=== PATIENT | female | born 1950 | race Caucasian/White ===

== ENCOUNTER 2023-11-27 12:59 | Inpatient (IN) | payer MEDICARE, SELFPAY ==
[2023-11-27] VITALS (16 sets, daily range): BP systolic 80–108; BP diastolic 38–83; BMI 31.7
[2023-11-27 08:52] LABS: % Basophils 0.3 % (0-2); % Eosinophils 0.3 % (0-6); % Immature Granulocytes 1.5 % (0-0.5); % Lymphocytes 5.8 % (20.5-51.1); % Monocytes 9.9 % (1.7-9.3); % Neutrophils 82.2 % (42.2-75.2); Absolute Basophils 0.1 10^3/uL (0-0.2); Absolute Eosinophils 0.1 10^3/uL (0-0.7); Absolute Immature Granulocytes 0.3 10^3/uL (0-0.05); Absolute Lymphocytes 1.1 10^3/uL (1.2-3.4); Absolute Monocytes 1.8 10^3/uL (0.1-0.6); Absolute Neutrophils 15.1 10^3/uL (1.4-6.5); Hematocrit 22.9 % (37.0-47.0); Hemoglobin 7.4 g/dL (12.0-16.0); Mean Corp Hgb Conc. 32.3 g/dL (33.0-37.0); Mean Corpuscular Hgb 25.3 pg (27.0-31.0); Mean Corpuscular Volume 78.2 fL (81.0-99.0); Mean Platelet Volume 8.9 fL (7.4-10.4); Nucleated Red Blood Cells % 0 %; Platelet Count 314 10^3/uL (130-400); Red Blood Cell Count 2.93 10^6/uL (4.20-5.40); Red Cell Dist. Width 17.7 % (11.5-14.5); White Blood Cell Count 18.4 10^3/uL (4.8-10.8)
[2023-11-27 09:11] LABS: ALT (SGPT) 11 U/L (0-35); AST (SGOT) 15 U/L (14-36); Albumin 2.1 g/dl (3.5-5.0); Alkaline Phosphatase 224 U/L (38-126); Blood Urea Nitrogen 59 mg/dl (7-17); Calcium 9.1 mg/dl (8.4-10.2); Carbon Dioxide 24 mmol/L (22-30); Chloride 95 mmol/L (98-107); Glucose 163 mg/dl (70-99); Potassium 5.3 mmol/L (3.5-5.1); Sodium 122 mmol/L (135-145); Total Protein 4.7 g/dl (6.3-8.2); eGFR 14.64
--- NOTE | 2023-11-27 09:12 | ED.GENMED ---
History of Present Illness
General
Chief Complaint: Abdominal Symptoms
Source: patient and records
Time Seen by Provider: 11/27/23 08:56
Travel History
Have you had any contact with someone who has COVID-19?: No
Do you have any symptoms of coronavirus? Fever > 100 degrees, chills, cough, shortness of breath, sore throat, loss of taste or smell, muscle aches, or headache?: No
History of Present Illness
History of Present Illness:
This patient is a 73-year-old female who presents emergency department as per referral from her facility because of 'complaining of pain in right abdominal area'. Transfer paperwork reports normal vital signs. Patient notes that she has had
increasing abdominal distention over the last few weeks. She said she had a bowel movement on Tuesday and then did not have a bowel movement until yesterday x 2. She does not feel constipated. She denies [employer] stools, melena,
hematochezia, black stools. She has an indwelling Kitchen catheter and notes that her urine has looked darker to her recently. She denies abdominal pain at this time, but states that she sometimes will get mild discomfort across her mid to lower
abdomen without focality relieved with Tylenol. She denies vomiting but has intermittent nausea. She denies fever, chills, chest pain, dyspnea, headache, dizziness, or other complaints.
Past History
Past History
ED Past Medical History: HTN, Hypercholesterolemia, NIDDM, Other (Peripheral vascular disease, foot drop, carotid artery disease) and Other (Severe L4-5 spinal stenosis)
ED Past Surgical History: Orthopedic (Cervical spine fracture with surgical repair 2016 and 2021, lumbar laminectomy 2016, 2019; spinal cord stimulator implant 2020), Urological (Bladder plication 2012) and Other (Femoral-popliteal bypass
right-sided, right carotid endarterectomy 2012, cataract extraction, right AKA)
Social History
Tobacco: Smoker
Alcohol: None
Drug: None
Personal:
Living: with family
Employment: Not employed
Family History
Family History: Other (Reviewed and noncontributory)
Phy Exam
Physical Exam
Physical Exam:
GENERAL: Alert , in no apparent distress
EYE: pupils equal and reactive, conjunctive slightly pink
NECK: Supple, no significant adenopathy.
ENT: o/p clr, mm dry
CARDIAC: Regular rate and rhythm .
LUNGS: Clear breath sounds bilaterally, no acute respiratory distress, no wheezes/rales/rhonchi
ABDOMEN: Soft, distended, without focal tenderness, no r/g
NEUROLOGICAL: Alert and oriented, baseline neuropathy le/weakness le bilat
SKIN: Warm and dry, skin intact.
MUSCULOSKELETAL:1+ le edema, well perfused.
PSYCH: Normal and appropriate interaction.
Course
Orders/Labs/Results
Orders:
Orders
11/27/23 08:29
EKG [Electrocardiogram (*1)] Urgent
Reason for Study: Chest Pain
EKG- Treatment ONCE
11/27/23 08:45
Complete Blood Count/With Diff Urgent
Comprehensive Metabolic Panel Urgent
11/27/23 09:11
CR Chest - 2 Views Urgent
Comment:
Reason For Exam: transient hypoxia, new onset ?ascites
11/27/23 09:12
US Abdomen Limited Urgent
Reason For Exam: distention, poss ascites
11/27/23 09:41
Albumin Urgent
PTT Urgent
Prothrombin Time Urgent
Troponin I Urgent
11/27/23 10:35
Cardiac Monitoring- Treatment ONCE
0.9% Sodium Chloride 1000 ml [Nss] 2,900 ml IV NOW STA
Cefepime HCl [Maxipime] 2,000 mg IV NOW STA
Pulse Ox/cont/shift [RESP] Urgent
Quantity: 1
11/27/23 12:27
Lactic Acid Q4H
Comment: CANCEL 2nd LACTIC ACID IF 1st LACTIC ACID IS LESS THAN 2
Urinalysis Reflex To Culture Urgent
Date Specimen was Collected: 11/27/23
Time Specimen was Collected: 10:42
Urine Microscopic Reflex Cult Urgent
Blood Culture Q30M
CARMEN Source: Blood/Venous
Specimen Description:
Blood Culture Q30M
CARMEN Source: Blood/Venous
Specimen Description:
Influenza A+B Rapid Molecular Urgent
CARMEN Source: Nasal Swab
Specimen Description:
Urine Culture Urgent
CARMEN Source: U
Specimen Description:
Date Specimen was Collected: 11/27/23
Time Specimen was Collected: 10:42
11/27/23 12:37
Admit/Transfer Patient As Directed
Co-Sign Provider:
Level of Care: Inpatient admission
Assign to:: IMU- Intermediate Care
Physician / Group: Bernadine
Diagnosis: BOOKER
Reason for Hospitalization: BOOKER, sepsis
Expected length of stay greater than two midnights?: Yes
ELOS- Estimated Length of Stay in days: 5
I certify the patient meets the requirements for IP care: Yes
11/27/23 12:38
COVID-19 Antigen Urgent
Source: Nasal Swab
Wound/Abscess/Other Culture Urgent
CARMEN Source: Sacral
Specimen Description:
Date Specimen was Collected: 11/27/23
Time Specimen was Collected: 12:34
11/27/23 12:39
Code Status As Directed
Resuscitation Status: Do not resuscitate
Reached after discussion with pt or family/Healthcare POA: Yes
11/27/23 12:40
Kitchen Placement- Treatment ONCE
Reason for insertion: Acute Retention
DNR Bracelet Application ONCE
11/27/23 16:25
Acetaminophen [Tylenol] 650 mg PO Q6HPRN PRN
11/27/23 16:41
0.9% Sodium Chloride 1000 ml [Nss] 1,000 ml IV 150 mls/hr
11/27/23 16:41
NEPHROLOGY CONSULT Routine
Consulting Provider: Benjamin Gilbert V.
Was physician already notified: Yes
SURGICAL CONSULT Routine
Consulting Provider: Nestor Guerra
Was physician already notified: Yes
Activity As Directed
Activity Level: Bedrest
I&O [Intake/ Output] As Directed
Frequency: q12h
DX Deep Vein Thrombosis Video Routine
11/27/23 17:32
Lactic Acid Q4H
Comment: CANCEL 2nd LACTIC ACID IF 1st LACTIC ACID IS LESS THAN 2
11/28/23 08:00
Cefepime HCl [Maxipime] 1,000 mg IV Q24H
Abnormal Lab Results
11/27/23 11/27/23 11/27/23
08:45 09:41 12:27
WBC 18.4 H 10^3/uL
(4.8-10.8)
RBC 2.93 L 10^6/uL
(4.20-5.40)
Hgb 7.4 L g/dL
(12.0-16.0)
Hct 22.9 L %
(37.0-47.0)
MCV 78.2 L fL
(81.0-99.0)
MCH 25.3 L pg
(27.0-31.0)
MCHC 32.3 L g/dL
(33.0-37.0)
RDW 17.7 H %
(11.5-14.5)
Abs Immat Gran (auto) 0.3 H 10^3/uL
(0-0.05)
Absolute Neuts (auto) 15.1 H 10^3/uL
(1.4-6.5)
Absolute Lymphs (auto) 1.1 L 10^3/uL
(1.2-3.4)
Absolute Monos (auto) 1.8 H 10^3/uL
(0.1-0.6)
Immature Gran % 1.5 H %
(0-0.5)
Neutrophils % 82.2 H %
(42.2-75.2)
Lymphocytes % 5.8 L %
(20.5-51.1)
Monocytes % 9.9 H %
(1.7-9.3)
PT 16.4 H Sec
(11.4-14.6)
Sodium 122 L mmol/L
(135-145)
Potassium 5.3 H mmol/L
(3.5-5.1)
Chloride 95 L mmol/L
(98-107)
BUN 59 H mg/dl
(7-17)
Creatinine 3.2 H mg/dL
(0.6-1.0)
Glucose 163 H mg/dl
(70-99)
Lactic Acid 2.2 H mmol/L
(0.7-2.0)
Alkaline Phosphatase 224 H U/L
(38-126)
Total Protein 4.7 L g/dl
(6.3-8.2)
Albumin 2.1 L g/dl 2.2 L g/dl
(3.5-5.0) (3.5-5.0)
Urine Ketones Trace A
(Negative)
Urine Nitrite (Reflex) Positive A
(Negative)
Leukocyte Esterase Rfl 2+ A
(Negative)
Urine Bacteria (Reflex) Many A
(Negative)
Urine Albumin (Reflex) 2+ A
(Neg - Trace)
11/27/23 08:45
11/27/23 08:45
Vital Signs
Initial and Last Documented VS:
Initial Vital Signs
Temp Pulse Resp BP Pulse Ox
98.7 F 72 15 97/44 94
11/27/23 08:23 11/27/23 08:23 11/27/23 08:23 11/27/23 08:23 11/27/23 08:23
Last Documented Vital Signs
Temp Pulse Resp BP Pulse Ox
99.3 F 84 24 111/53 93
11/28/23 15:12 11/28/23 18:00 11/28/23 18:00 11/28/23 18:00 11/28/23 18:00
*Critical Care Note
Total Time (30-74mins, 75-104mins- exclusive of procedures): Not Applicable
Update Note
Update Note:
Patient presents to the Emergency Department with ___abdominal distention/report of pain
Number and Complexity of Problems Addressed at the Encounter
� Chronic conditions affecting care:indwelling Kitchen
� Acute Exacerbation and/or Progression of Chronic Illness:
� Differential Diagnosis includes: But not limited to ascites, cirrhosis, carcinoma, etc.
Amount and/or Complexity of Data to be Reviewed and Analyzed
� I performed an independent evaluation of and my interpretation is:
EKG: Read by me, normal sinus rhythm, left axis deviation, no acute ischemia noted
CT:
Xrays:
Laboratory Studies: Anemia at 7.4 noted, this is a decrease from her most recent levels
Other:
� Review of other/old records reveals: Patient was here September 2023 and at that time received a right-sided AKA due to gangrenous lower extremity due to advanced peripheral arterial disease, does have a history of iron
deficiency anemia
� Clinical information was obtained by an independent historian:
� Prescriptions/Medications Considered but not given:
� Further testing considered but not performed:
Risk of Complications and/or Morbidity or Mortality of Patient Management
� Social determinants of health affecting care:
� Discussion with other providers (PCP, Hospitalists, Consultants, etc):
� Escalation of care including admission/observation vs risk of discharge considered: 10:56 AM sacral wound examined by me she has a large circular shaped decubitus that is moist but without active drainage in the sacral area.
Stool noted to be dark but heme-negative on exam. Strongly suspect urosepsis, antibiotics and fluids ordered, will monitor blood pressure very closely.
bp responding to ivf, map 64. awake and alert on reassessment, at bedside. Case d/w Dr Ariza hospitalist for admission. Pt seen by Dr Gilbert at my request, recommends NS at this time (not necessarily 3%).
US noted with bladder distention, will change Kitchen.
ED Attending Note
-
Portions of this chart may have been created with voice recognition software.� Occasional wrong word or��sound alike� substitutions may have occurred due to the inherent limitations of voice recognition software.
Discharge Plan
Departure
Patient Disposition: Admit
Date of Disposition: 11/27/23
Time of Disposition: 11:22
Presentation/result/management discussed w/ accepting MD/DO: Hospitalist
Discharge Problem:
urosepsis
Interventions
Interventions:
*Risk Screen - Suicide Last Done: 11/27/23 10:35
*General Assessment Last Done: 11/27/23 10:35
*Neglect/Abuse Screening Last Done: 11/27/23 10:35
ED- Fall Risk Assessment Last Done: 11/27/23 10:35
*ED COVID-19 Vaccine History Last Done: 11/27/23 10:35
*Nursing Disposition Last Done: 11/27/23 16:56
YZ-[id number]-[id number] Assessment Last Done: 11/27/23 12:04
Discharge Date and Time
Discharge Date/Time: 11/27/23 16:30
[2023-11-27 10:04] LABS: APTT 32.7 Sec (23.4-35.0); INR 1.34; PT 16.4 Sec (11.4-14.6)
[2023-11-27 10:06] LABS: Albumin 2.2 g/dl (3.5-5.0)
[2023-11-27 10:16] LABS: Troponin I < 0.012 ng/ml
--- NOTE | 2023-11-27 10:44 | W.CON.NEPH ---
Consultation
-
Date/Time Consultation Requested: 11/27/2023 10:30 AM
Date/Time Consultation Performed: 11/27/2023 10:30 AM
Requesting Provider: Fidelina
Performing Provider: Vladimir
Reason for Consultation: BOOKER/Hyponatremia
Medical History
-
Chief Complaint: Acute kidney injury/hyponatremia
History of Present Illness:
The patient is a 73-year-old female with a past medical history of hypertension maintained on losartan therapy. She has a history of diabetes with multiple microvascular complications including neuropathy and is maintained on insulin therapy. She
has had an indwelling Kitchen since her last admission many months prior for bladder retention. She was sent to the ER as she had been describing right abdominal pain over the past several weeks. She notes that she has had decreased urine output
from her Kitchen. She denied any nausea vomiting melena or hematochezia. She does note chronic discomfort also on her bottom from a chronic sacral wound. The patient had a prior history of cervical spine fracture requiring surgical repair in both
2016 and 2019. She has an indwelling spinal cord stimulator and had undergone previous lumbar laminectomy as well. She has a history of peripheral vascular disease and underwent prior femoral-popliteal bypass of the right side and right carotid
endarterectomy in 2012. She is status post right AKA as well in the setting of her peripheral vascular disease. On presentation to the hospital she was notably hypotensive with systolic blood pressures in the 80s and has a noted leukocytosis of
18,000 and associated with acute renal failure and hyponatremia. Of note the patient is being treated with amoxicillin and Levaquin prior to this admission for possible underlying UTI. her sodium level was 122 with a corresponding creatinine level
of 3.2. (previous creatinine baseline of 0.7 in August 2023) Nephrology was urgently consulted for acute kidney injury and hyponatremia.
Past Medical History
Diabetes
Hypertension
Chronic Kitchen catheter
Right AKA
History of femoropopliteal bypass of right side and right carotid endarterectomy in 2012
Obesity
Sacral wound
Spinal cord stimulator
Previous history of cervical spine fracture requiring surgical repair in 2016 and 2019 with indwelling spinal hardware
Coronary artery disease
Anemia
Social History
Tobacco: Former Smoker
Alcohol: Occasional
Living: Correction
Family History
No chronic kidney disease
Allergies / Home Medications
Allergy/AdvReac Type Severity Reaction Status Date / Time
No Known Allergies Allergy Verified 08/01/23 13:24
Medication Instructions Recorded Confirmed Type
aspirin 81 mg tablet,delayed 81 mg PO DAILY Blood Clot 10/06/21 08/01/23 History
release (Kartik Low Dose Aspirin) Prevention/Tx
clopidogrel 75 mg tablet 75 mg PO DAILY Blood clot 10/06/21 08/01/23 History
prevention/tx
gabapentin 300 mg capsule 300 mg PO TID Neurological 10/22/22 08/01/23 History
Condition
acetaminophen 325 mg tablet 650 mg PO Q4HPRN PRN mild 07/14/23 08/01/23 History
(Tylenol) pain/fever
aluminum-mag hydroxide-simethicone 15 ml PO Q4HPRN PRN indigestion 07/14/23 08/01/23 History
200 mg-200 mg-20 mg/5 mL oral susp
(Mag-Al Plus)
atorvastatin 10 mg tablet 10 mg PO HS High Cholesterol 07/14/23 08/01/23 History
bisacodyl 10 mg rectal suppository 10 mg KS QPM Constipation 07/14/23 08/01/23 History
docusate sodium 100 mg capsule 100 mg PO TID Constipation 07/14/23 08/01/23 History
(Colace)
pantoprazole 40 mg tablet,delayed 40 mg PO DAILY Gastrointestinal 07/14/23 08/01/23 History
release (Protonix) Issue
sennosides 8.6 mg tablet (senna) 17.2 mg PO DAILY@1200 Constipation 07/14/23 08/01/23 History
Insulin Glargine In Device 8 units SC HS Diabetes 08/01/23 08/01/23 History
Lactobac no.2-Bifidobac no.1-S. 1 cap PO DAILY Supplement 08/01/23 08/01/23 History
thermo 112.5 billion cell capsule
(Visbiome)
alprazolam 0.25 mg tablet 0.25 mg PO Q8HPRN PRN anxiety 08/01/23 08/01/23 History
ascorbic acid (vitamin C) 500 mg 500 mg PO DAILY Supplement 08/01/23 08/01/23 History
tablet (Vitamin C)
bisacodyl 5 mg tablet,delayed 10 mg PO DAILYPRN PRN constipation 08/01/23 08/01/23 History
release (Dulcolax (bisacodyl))
ferrous sulfate 325 mg (65 mg 325 mg PO DAILY Supplement 08/01/23 08/01/23 History
iron) tablet
losartan 25 mg tablet 12.5 mg PO DAILY Blood Pressure 08/01/23 08/01/23 History
therapeutic multivitamin 1 tab PO DAILY Supplement 08/01/23 08/01/23 History
collagenase clostridium histo. 250 1 applic topical DAILY #30 grams 08/16/23 Rx
unit/gram topical ointment (Santyl)
miconazole nitrate 2 % topical 1 applic topical BID #85 grams 08/16/23 Rx
powder (Miconazorb AF)
Review of Systems
-
History Source: Patient
All other systems: Negative unless noted
Constitutional: Other (Weakness)
EENT: No Symptoms
Respiratory: No Symptoms
Cardiac: No Symptoms
Abdomen/GI: Abdominal Pain (Right lower quadrant with abdominal distention noted)
: Other (Chronic Kitchen with decreased urine output no dysuria)
Musculoskeletal: Edema and Other (Right AKA)
Skin: No Symptoms
Neurological: Numbness (Of lower extremity)
Endocrine: No Symptoms
Hematologic/Lymphatic: No Symptoms
Physical Exam
Vital Signs
Vital Signs
Temp Pulse Resp BP Pulse Ox
98.7 F 72 17 80/49 95
11/27/23 08:23 11/27/23 09:17 11/27/23 09:17 11/27/23 09:17 11/27/23 09:17
Lab Results
11/27/23 08:45
11/27/23 08:45
WBC 18.4 10^3/uL (4.8-10.8) H 11/27/23 08:45
RBC 2.93 10^6/uL (4.20-5.40) L 11/27/23 08:45
Hgb 7.4 g/dL (12.0-16.0) L 11/27/23 08:45
Hct 22.9 % (37.0-47.0) L 11/27/23 08:45
Plt Count 314 10^3/uL (130-400) 11/27/23 08:45
Sodium 122 mmol/L (135-145) L 11/27/23 08:45
Potassium 5.3 mmol/L (3.5-5.1) H 11/27/23 08:45
Chloride 95 mmol/L (98-107) L 11/27/23 08:45
Carbon Dioxide 24 mmol/L (22-30) 11/27/23 08:45
BUN 59 mg/dl (7-17) H 11/27/23 08:45
Creatinine 3.2 mg/dL (0.6-1.0) H 11/27/23 08:45
eGFR 14.64 11/27/23 08:45
Glucose 163 mg/dl (70-99) H 11/27/23 08:45
Calcium 9.1 mg/dl (8.4-10.2) 11/27/23 08:45
Albumin 2.2 g/dl (3.5-5.0) L 11/27/23 09:41
Physical Exam
General: AOx3 and Other (Obese)
HEENT: PERRL, EOMI, Anicteric, Conjunctivae Clear (Pale), Ear/Nose Intact, Hearing Normal, Dentition Intact, Neck Supple, Trachea Midline and No JVD
Respiratory: Clear
Cardiac: S1/S2 and Regular Rate/Rhythm
Breast: Deferred by me
Abdomen: Soft, Nontender, Normal Bowel Sounds, No Hepatosplenomegaly and Other (Distended)
Rectal: Deferred by Provider
Genito-urinary: No Costovertebral Tender
Musculoskeletal: Edema (Left pretibial) and Other (Right AKA's to)
Skin: No Rash, No Clubbing, No Cyanosis, Normal Turgor, No Bruising and Other (Sacral wound)
Neuro: CN II-XII (Intact), Strength (Moves all 4 extremities against resistance) and Other (Decreased neurosensory along lower extremity)
Hematologic/Lymphatic: No Cervical Lymphadenopathy and No Submandibular Lymphadenopathy
Psych: Mood/afflect pleasant, Insight/judgement good and Appropriate
Assessment/Plan
-
Impression:
Abdominal distention and pain presentation
Acute kidney injury
Hyponatremia
Hypotension and likely evolving sepsis/leukocytosis
Chronic Kitchen
Nonambulatory due to previous cervical surgery and right AKA
PAD
History of hypertension now hypotensive
Diabetes with multiple microvascular complication
History of cervical myelopathy
History of right carotid endarterectomy
History of coronary artery disease
Anemia
Sacral wound
Plan:
BOOKER:
-Likely due to prerenal stimulus with evolving sepsis
-Support blood pressure with isotonic saline and possible pressors if required to keep MAP greater than 65
-Panculture/broad-spectrum antibiotic
-Chest x-ray reviewed without noted pathology or CHF
-With hold losartan in setting of hypotension and acute kidney injury
-Will review abdominal ultrasound to assess for possible obstructive uropathy and to assess abdominal distention
-Check fractional excretion of sodium and urinalysis with culture
-Recheck BMP later this afternoon around 3pm
Hyponatremia:
-Fluid restrict 1200 cc/day until sodium rises
-Okay to use isotonic saline as patient is actively hypotensive
-Obtain urine osmolarity
Anemia:
-Assess for acute blood loss, heme check stools, check iron stores
-Transfuse if hemoglobin drops below 7 and/or becomes more hemodynamically unstable
Data Reviewed
-
Radiology: Image Personally Visualized and interpreted (Reviewed chest x-ray without pneumonic or congestive heart failure features)
Ultrasound: Report Reviewed by me (Abdominal ultrasound to be reviewed)
Medical Tests (Nuc Med, Echo etc): Other (EKG report reviewed)
Labs: Labs Reviewed by me (BMP and CBC reviewed)
Old Records: Reviewed (Reviewed old records including BMP from August 2023 as well as discharge summary from hospitalization)
[2023-11-27] MEDS: NSS 2900 ML IV (10:48)
[2023-11-27] MEDS: MAXIPIME 2000 MG IV (11:06)
[2023-11-27 12:40] LABS: Urine Albumin 2+ (Neg - Trace); Urine Bilirubin Negative (Negative); Urine Character Clear (Clear); Urine Color Yellow; Urine Glucose Negative (Negative); Urine Ketone Trace (Negative); Urine Leukocyte 2+ (Negative); Urine Nitrite Positive (Negative); Urine Occult Blood Negative (Negative); Urine Specific Gravity 1.015 (<1.030); Urine Urobilinogen Negative (Neg - 1+)
--- NOTE | 2023-11-27 12:52 | EDRN ---
Wound Location and type/assessment: Patient states 2 weeks ago this sacral wound was the size of a pencil eraser
--- NOTE | 2023-11-27 12:52 | HPS.HSE ---
Family Physician
-
Family Physician: Fabrice Padgett
Chief Complaint
-
Abdominal discomfort
History of Present Illness
73-year-old female with transferred from [facility] half-way for abdominal discomfort. Also complaining of anorexia and chills off and on. Multiple medical problems. Last hospitalized in August. Has been in a half-way since. Bed
and wheelchair-bound.
Medical History
Past Medical History
Past Medical History: Reports Other
Additional Past Medical History:
PAD
Chronic urinary retention
Chronic anemia
CAD
Essential hypertension
DM2
Obesity
Spinal stenosis
Past Surgical History: Reports Other
Additional Past Surgical History:
Right above-knee amputation
Right femoropopliteal bypass
Right carotid enterectomy
Cataract extraction
Lumbar laminectomy
Spine stimulator implant
Bladder surgery
Social History
Tobacco: Smoker
Alcohol: None
Drug: None
Personal:
Living: Alf
Family History
Family History: Not pertinent
Allergies / Home Medications
Allergies reflects when Allergies were last updated in [facility].
Home Medications with original date entered in [facility]
Allergy/Medication List:
Allergies
Allergy/AdvReac Type Severity Reaction Status Date / Time
No Known Allergies Allergy Verified 08/01/23 13:24
Home Medications
aspirin 81 mg tablet,delayed release (Kartik Low Dose Aspirin) 81 mg PO DAILY Blood Clot Prevention/Tx 10/06/21
clopidogrel 75 mg tablet 75 mg PO DAILY Blood clot prevention/tx 10/06/21
gabapentin 300 mg capsule 300 mg PO TID Neurological Condition 10/22/22
acetaminophen 325 mg tablet (Tylenol) 650 mg PO Q4HPRN PRN mild pain/fever 07/14/23
aluminum-mag hydroxide-simethicone 200 mg-200 mg-20 mg/5 mL oral susp (Mag-Al Plus) 15 ml PO Q4HPRN PRN indigestion 07/14/23
atorvastatin 10 mg tablet 10 mg PO HS High Cholesterol 07/14/23
bisacodyl 10 mg rectal suppository 10 mg WI QPM Constipation 07/14/23
docusate sodium 100 mg capsule (Colace) 100 mg PO TID Constipation 07/14/23
pantoprazole 40 mg tablet,delayed release (Protonix) 40 mg PO DAILY Gastrointestinal Issue 07/14/23
sennosides 8.6 mg tablet (senna) 17.2 mg PO DAILY@1200 Constipation 07/14/23
Insulin Glargine In Device 8 units SC HS Diabetes 08/01/23
Lactobac no.2-Bifidobac no.1-S. thermo 112.5 billion cell capsule (Visbiome) 1 cap PO DAILY Supplement 08/01/23
alprazolam 0.25 mg tablet 0.25 mg PO Q8HPRN PRN anxiety 08/01/23
ascorbic acid (vitamin C) 500 mg tablet (Vitamin C) 500 mg PO DAILY Supplement 08/01/23
bisacodyl 5 mg tablet,delayed release (Dulcolax (bisacodyl)) 10 mg PO DAILYPRN PRN constipation 08/01/23
ferrous sulfate 325 mg (65 mg iron) tablet 325 mg PO DAILY Supplement 08/01/23
losartan 25 mg tablet 12.5 mg PO DAILY Blood Pressure 08/01/23
therapeutic multivitamin 1 tab PO DAILY Supplement 08/01/23
collagenase clostridium histo. 250 unit/gram topical ointment (Santyl) 1 applic topical DAILY #30 grams 08/16/23
miconazole nitrate 2 % topical powder (Miconazorb AF) 1 applic topical BID #85 grams 08/16/23
Review of Systems
-
History Source: Patient
A 12 point ROS was completed and negative except as noted: Yes
Physical Exam
Vital Signs
Vital Signs
Temp Pulse Resp BP Pulse Ox
98.7 F 72 17 80/49 95
11/27/23 08:23 11/27/23 09:17 11/27/23 09:17 11/27/23 09:17 11/27/23 09:17
Physical Exam
General: Well Developed, Well Nourished, No Apparent Distress and Comfortable
HEENT: NormoCephalic, Anicteric and Moist mucous membranes
Respiratory: Clear
Cardiac: S1/S2 and Regular Rhythm
GI: Soft, Non Tender and Non Distended
Genito-urinary: Kitchen
Musculoskeletal: No Clubbing, No Cyanosis, No Edema and Other (Right above-knee amputation)
Skin: Warm and Dry
Neuro: AO x 3
Hematologic/Lymphatic: No Lymphadenopathy
Psych: Calm
Laboratory Results
-
11/27/23 08:45
11/27/23 08:45
Laboratory Results
PT 16.4 Sec (11.4-14.6) H 11/27/23 09:41
INR 1.34 11/27/23 09:41
APTT 32.7 Sec (23.4-35.0) 11/27/23 09:41
Total Bilirubin 1.0 mg/dl (0.2-1.3) 11/27/23 08:45
AST 15 U/L (14-36) 11/27/23 08:45
ALT 11 U/L (0-35) 11/27/23 08:45
Alkaline Phosphatase 224 U/L (38-126) H 11/27/23 08:45
Troponin I < 0.012 ng/ml 11/27/23 09:41
Impression/Plan
-
Septic shock - differential diagnosis includes catheter associated urinary tract infection versus sacral decubital wound infection versus other. Admit to IMU. Blood pressure improving with IV fluids.
Continue broad-spectrum antibiotics. Await cultures.
Lactic acidosis due to sepsis.
BOOKER -likely due to ATN from sepsis, shock, etc. Nephrology consulted. Plan to exchange Kitchen catheter. Bladder is distended on ultrasound despite Kitchen catheter.
Hyponatremia -sodium 122. Likely hypovolemic. Check urine studies. Nephrology consulted.
Hyperkalemia -suspect due to BOOKER.
Acute on chronic anemia -hemoglobin 7.4 today. Baseline unknown, last hemoglobin was 9.3 in August. Unclear if blood loss anemia related to GI bleed. Nursing reports black stools but she is also on iron supplementation. May need transfusion if
hemoglobin drops further.
Large sacral decubital wound -consult surgery for possible debridement.
PAD -right above-knee amputation. Does not have a prosthesis. Is wheelchair and bedbound.
DM2 without hyperglycemia -use low resistance insulin scale for now.
Essential hypertension -hold antihypertensives for shock.
CAD -stable.
Chronic urinary retention -chronic Kitchen catheter as above.
Chronic cervical myelopathy
Hyperlipidemia
Anxiety disorder
Morbid obesity due to excess calories
DNR
[2023-11-27 12:56] LABS: Lactic Acid 2.2 mmol/L (0.7-2.0)
[2023-11-27 13:00] LABS: Urine Amorphous Seen; Urine Squamous Cell 0-2 /LPF (Few); Urine Triple Phosphate Crystal Seen
[2023-11-27 13:03] LABS: Urine Bacteria Many (Negative); Urine Red Blood Cell 0-2 /HPF (0-2); Urine White Cell 0-2 /HPF (0-5)
[2023-11-27 13:04] LABS: COVID-19 Antigen Negative (Negative)
--- NOTE | 2023-11-27 13:40 | CON.GS ---
Consultation
-
Date/Time Consultation Requested: 11/27/2023, 12:25
Date/Time Consultation Performed: 11/27/2023, 13:40
Requesting Provider: Laith Colindres DO
Performing Provider: Julito Hinson MD
Reason for Consultation: sacral decubital wound infection
Medical History
-
Chief Complaint: abdominal discomfort
History of Present Illness:
73-year-old female presents emergency department from her assisted living facility complaining of abdominal pain, chills, and anorexia. The patient has an extensive past medical history including a chronic Marie catheter due to urinary retention,
diabetes type 2, hypertension, and a history of a right femoral-popliteal bypass, right carotid endarterectomy. Her last bowel movement was yesterday. She is currently on ASA and Plavix.
In the ER she is in septic shock. She is hypotensive and her WBC is 18.4. She has a positive urinalysis for UTI. Abdominal ultrasound shows no ascites or other acute finding. The urinary bladder is distended with a catheter in place. Upon exam
it was found that the patient has a sacral decubitus ulcer. We have been consulted for further surgical opinion.
Past Medical History
Past Medical History: CAD, HTN and Other (PAD, chronic urinary retetion, chronic anemia, DM II, obesity, spinal stenosis )
Past Surgical History: Urological (chronic indwelling marie) and Other (above the knee amputation on the right, right femoral popliteal bypass, cataract extraction, right carotid endarterectomy, spinal stimulator implant, lumbar laminectomy, bladder
surgery)
Social History
Tobacco: Smoker
Alcohol: None
Drug: None
Living: Longterm
Family History
Family History: Reviewed & Not Pertinent
Allergies / Home Medications
Allergy/AdvReac Type Severity Reaction Status Date / Time
No Known Allergies Allergy Verified 08/01/23 13:24
Medication Instructions Recorded Confirmed Type
aspirin 81 mg tablet,delayed 81 mg PO DAILY Blood Clot 10/06/21 08/01/23 History
release (Kartik Low Dose Aspirin) Prevention/Tx
clopidogrel 75 mg tablet 75 mg PO DAILY Blood clot 10/06/21 08/01/23 History
prevention/tx
gabapentin 300 mg capsule 300 mg PO TID Neurological 10/22/22 08/01/23 History
Condition
acetaminophen 325 mg tablet 650 mg PO Q4HPRN PRN mild 07/14/23 08/01/23 History
(Tylenol) pain/fever
aluminum-mag hydroxide-simethicone 15 ml PO Q4HPRN PRN indigestion 07/14/23 08/01/23 History
200 mg-200 mg-20 mg/5 mL oral susp
(Mag-Al Plus)
atorvastatin 10 mg tablet 10 mg PO HS High Cholesterol 07/14/23 08/01/23 History
bisacodyl 10 mg rectal suppository 10 mg MT QPM Constipation 07/14/23 08/01/23 History
docusate sodium 100 mg capsule 100 mg PO TID Constipation 07/14/23 08/01/23 History
(Colace)
pantoprazole 40 mg tablet,delayed 40 mg PO DAILY Gastrointestinal 07/14/23 08/01/23 History
release (Protonix) Issue
sennosides 8.6 mg tablet (senna) 17.2 mg PO DAILY@1200 Constipation 07/14/23 08/01/23 History
Insulin Glargine In Device 8 units SC HS Diabetes 08/01/23 08/01/23 History
Lactobac no.2-Bifidobac no.1-S. 1 cap PO DAILY Supplement 08/01/23 08/01/23 History
thermo 112.5 billion cell capsule
(Visbiome)
alprazolam 0.25 mg tablet 0.25 mg PO Q8HPRN PRN anxiety 08/01/23 08/01/23 History
ascorbic acid (vitamin C) 500 mg 500 mg PO DAILY Supplement 08/01/23 08/01/23 History
tablet (Vitamin C)
bisacodyl 5 mg tablet,delayed 10 mg PO DAILYPRN PRN constipation 08/01/23 08/01/23 History
release (Dulcolax (bisacodyl))
ferrous sulfate 325 mg (65 mg 325 mg PO DAILY Supplement 08/01/23 08/01/23 History
iron) tablet
losartan 25 mg tablet 12.5 mg PO DAILY Blood Pressure 08/01/23 08/01/23 History
therapeutic multivitamin 1 tab PO DAILY Supplement 08/01/23 08/01/23 History
collagenase clostridium histo. 250 1 applic topical DAILY #30 grams 08/16/23 Rx
unit/gram topical ointment (Santyl)
miconazole nitrate 2 % topical 1 applic topical BID #85 grams 08/16/23 Rx
powder (Miconazorb AF)
Review of Systems
-
History Source: Patient and Physician
Constitutional: Chills
Abdomen/GI: Abdominal Pain and Anorexia
A 10 point review of systems was completed, and was negative except as per HPI.
Physical Exam
Vital Signs
Temp Pulse Resp BP Pulse Ox
98.7 F 91 22 92/57 93
11/27/23 08:23 11/27/23 12:58 11/27/23 12:58 11/27/23 13:28 11/27/23 12:58
11/26/23 11/27/23 11/28/23
06:59 06:59 06:59
Actual Weight 95.9 kg
Lab Results
11/27/23 08:45
11/27/23 08:45
WBC 18.4 10^3/uL (4.8-10.8) H 11/27/23 08:45
Hgb 7.4 g/dL (12.0-16.0) L 11/27/23 08:45
Hct 22.9 % (37.0-47.0) L 11/27/23 08:45
Plt Count 314 10^3/uL (130-400) 03/24/24 08:45
Abs Immat Gran (auto) 0.3 10^3/uL (0-0.05) H 11/27/23 08:45
Neutrophils % 82.2 % (42.2-75.2) H 11/27/23 08:45
Physical Exam
General: Well Developed, Well Nourished and No Apparent Distress
HEENT: Normocephalic
GI: Soft, Non Tender and Non Distended
Skin: Other (sacral decubitus pressure ulcer - black/unstageable)
Neuro: AO x 3
Data Reviewed
-
Ultrasound: Report Reviewed by me
Labs: Labs Reviewed by me, Discussed with Physician and Discussed with Patient
Old Records: Reviewed
Assessment / Plan
-
Assessment: 73-year-old female presents from her assisted living facility due to abdominal discomfort, anorexia, and chills, found to be in septic shock with BOOKER, with a urinary tract infection and sacral decubital wound infection
Plan:
Recommend medically optimizing at this time. Continue resuscitation and antibiotics. Will consider potential surgery in the future once she improves.
[2023-11-27] MEDS: TYLENOL 650 MG PO (16:30)
--- NOTE | 2023-11-27 16:45 | PTCARENOTE ---
patient received from ED on a stretcher. awake, alert oriented x 2-3. Forgetful. sinus rhythm on telemetry with rates in 80's. pox 92-94% on room air. b/p 94/38. oriented to the room, bed alarm activated. bed in lowest position. repeat lactic and
repeat BMP drawn. see fully documented assessment. call rouse in reach. continuing to monitor.
[2023-11-27 17:23] LABS: Glucose - Point of Care 133 mg/dl (70-99)
[2023-11-27] MEDS: NSS 1000 IV (17:38)
[2023-11-27] MEDS: NOVOLOG FLEXPEN-LOW RESISTANCE SC (17:38)
[2023-11-27] MEDS: VANCOCIN 300 ML IV (17:39)
[2023-11-27] MEDS: VANCOCIN 300 MG IV (17:39)
[2023-11-27 17:52] LABS: Lactic Acid 1.5 mmol/L (0.7-2.0)
[2023-11-27 17:53] LABS: Blood Urea Nitrogen 57 mg/dl (7-17); Calcium 9.1 mg/dl (8.4-10.2); Carbon Dioxide 23 mmol/L (22-30); Chloride 99 mmol/L (98-107); Estimated Creatinine Clearance 21 ml/min; Glucose 128 mg/dl (70-99); Potassium 5.1 mmol/L (3.5-5.1); Sodium 124 mmol/L (135-145); eGFR 17.95
--- NOTE | 2023-11-27 20:05 | PHA.VAN.IN ---
Assessment
- Assessment
Renal Function: Appears elevated from baseline (baseline 0.6-0.7; current 3.2-->2.7)
Maximum Temperature: 101
Concomitant Antimicrobials: cefepime
Plan
- Plan
Initial / Loading Dose: vanc 1500 mg 11/26 17:39
Maintenance Regimen: dose by level
Monitoring: random 11/27 am
Pharmacokinetics Vancomycin I
- -
Patient Age: 73
Patient Sex: Female
Vancomycin Day #: 1
Indication: Bacteremia
Requesting Provider: Dr Colindres
Pertinent Antimicrobial Allergies:
no known allergies
Height / Weight:
Height 5 ft 7 in
Actual Weight 91.6 kg
- Vital Signs / Lab Results
Temp Pulse Resp BP Pulse Ox
98.9 F 85 17 84/71 93
11/27/23 16:40 11/27/23 19:30 11/27/23 19:30 11/27/23 19:25 11/27/23 19:30
Lab Results - Hematology
11/27/23
08:45
WBC 18.4 H
Lab Results - Chemistry
11/27/23 11/27/23 11/27/23
08:45 09:41 17:32
BUN 59 H 57 H
Creatinine 3.2 H 2.7 H
Estimated Creat Clear 21
Albumin 2.1 L 2.2 L
11/27/23 11/27/23
12:27 17:32
Lactic Acid 2.2 H 1.5
Lab Results - Urine
11/27/23
12:27
Urine Nitrite (Reflex) Positive A
Leukocyte Esterase Rfl 2+ A
Urine WBC (Reflex) 0-2
Ur Squamous Epith Cells 0-2
Urine Bacteria (Reflex) Many A
Microbiology Results
11/27/23 12:38 Gram Stain - Preliminary
Sacral
11/27/23 12:27 Influenza Types A & B (SHERIN) - Final
Nasal Swab Negative for Influenza A & B, NAAT
Negative results must be combined with clinical observations
and patient history.
Nucleic Acid Amplification test (NAAT)performed on the
[employer] platform.
--- NOTE | 2023-11-27 21:45 | PTCARENOTE ---
Assumed care of Pt at shift change. AAO x 2; NSR on monitor; ~ 90% on RA - placed on 2L O2 that brought her up to 95%. Chronic marie draining orange/yellow urine with large amounts of sediment. Pt drowsy and lethargic at times but arousable; Soft
BP's ~ 80-90's SBP; Wilda [employer]PER[employer] notified and ordered to increase NSS to 150ml/hr. Will continue to monitor and assess.
[2023-11-27 21:55] LABS: Glucose - Point of Care 144 mg/dl (70-99)
[2023-11-28] VITALS (56 sets, daily range): BP systolic 72–137; BP diastolic 33–95; BMI 31.7
--- NOTE | 2023-11-28 01:27 | PTCARENOTE ---
Pt remains hypotensive, no improvement noted with fluids. Last BP = 81/36; HR = 70; Wilda CREDIT INTERVIEWER notified - Order rec'd to start Levophed. Continues with NSS @ 150mg/hr. Reviewed Levo with Pt. Will continue to monitor and assess
[2023-11-28] MEDS: LEVOPHED 250 IV (01:32)
[2023-11-28] MEDS: NSS 1000 IV (01:33)
[2023-11-28 03:56] LABS: % Basophils 0.3 % (0-2); % Eosinophils 0.7 % (0-6); % Lymphocytes 7.8 % (20.5-51.1); % Monocytes 7.7 % (1.7-9.3); % Neutrophils 81.5 % (42.2-75.2); Absolute Basophils 0.1 10^3/uL (0-0.2); Absolute Eosinophils 0.1 10^3/uL (0-0.7); Absolute Immature Granulocytes 0.4 10^3/uL (0-0.05); Absolute Lymphocytes 1.5 10^3/uL (1.2-3.4); Absolute Monocytes 1.5 10^3/uL (0.1-0.6); Absolute Neutrophils 15.6 10^3/uL (1.4-6.5); Hematocrit 22.9 % (37.0-47.0); Hemoglobin 7.3 g/dL (12.0-16.0); Mean Corp Hgb Conc. 31.9 g/dL (33.0-37.0); Mean Corpuscular Hgb 25.1 pg (27.0-31.0); Mean Corpuscular Volume 78.7 fL (81.0-99.0); Mean Platelet Volume 9.1 fL (7.4-10.4); Nucleated Red Blood Cells % 0 %; Platelet Count 374 10^3/uL (130-400); Red Blood Cell Count 2.91 10^6/uL (4.20-5.40); Red Cell Dist. Width 18.1 % (11.5-14.5); White Blood Cell Count 19.1 10^3/uL (4.8-10.8)
[2023-11-28 04:11] LABS: ALT (SGPT) < 10 U/L (0-35); AST (SGOT) 15 U/L (14-36); Albumin 2.1 g/dl (3.5-5.0); Alkaline Phosphatase 211 U/L (38-126); Blood Urea Nitrogen 51 mg/dl (7-17); Calcium 9.2 mg/dl (8.4-10.2); Carbon Dioxide 23 mmol/L (22-30); Chloride 103 mmol/L (98-107); Estimated Creatinine Clearance 26 ml/min; Glucose 101 mg/dl (70-99); Potassium 4.6 mmol/L (3.5-5.1); Sodium 130 mmol/L (135-145); Total Bilirubin 0.8 mg/dl (0.2-1.3); Total Protein 4.7 g/dl (6.3-8.2); eGFR 22.95
[2023-11-28 04:21] LABS: Vancomycin Random 13.5 ug/ml
[2023-11-28] MEDS: NOVOLOG FLEXPEN-LOW RESISTANCE SC ×3 (08:16→16:33)
[2023-11-28] MEDS: STERILE WATER FOR INJECTION 10 ML IV (08:17)
[2023-11-28] MEDS: MAXIPIME 1000 MG IV (08:17)
[2023-11-28 08:27] LABS: Glucose - Point of Care 102 mg/dl (70-99)
--- NOTE | 2023-11-28 08:50 | W.PN.HOSP.TC ---
Today's Communication/Plan
-
Continue antibiotics
Follow cultures
Sacral wound with polymicrobial gram stain, and MRSA and Diphtheroids growth
Monitor closely in IMU
Orthopedics consulted for hip fracture
Assessment / Plan
Assessment / Plan
Physical Exam
General: Not in acute distress
HEENT: Normocephalic, Moist mucous membranes
Respiratory: Clear
Cardiac: S1/S2 and Regular Rhythm
GI: Soft, Non Tender and Non Distended. Positive bowel sounds.
Genito-urinary: Kitchen
Musculoskeletal: No Cyanosis, No Edema and Other (Right above-knee amputation)
Skin: Warm and Dry
Neuro: AAO x 3
Psych: Calm

Septic shock - differential diagnosis includes catheter associated urinary tract infection versus sacral decubital wound infection versus other. Continue monitoring in IMU. Blood pressure improved with IV fluids and Levophed.
Continue broad-spectrum antibiotics. Await cultures.
Lactic acidosis due to sepsis.
Sacral wound growing MRSA, Diptheroids, gram stain was polymicrobial
Acute left proximal femoral fracture on CT Imaging secondary to a fall ~1 week prior to presentation out of wheelchair; orthopedics consulted, recommendations appreciated: via [facility], Dr Mahmood (on November 28, 2023) mentioned that may be a
non-operative candidate as high risk or infection with placement of hardware and also a non-ambulator.
BOOKER -likely due to ATN from sepsis, shock, etc. Nephrology consulted. Plan to exchange Kitchen catheter. Bladder is distended on ultrasound despite Kitchen catheter.
Hyponatremia -sodium 122. Likely hypovolemic. Check urine studies. Nephrology consulted.
Hyperkalemia -suspect due to BOOKER.
Acute on chronic anemia -hemoglobin 7.4->7.3 today. Baseline unknown, last hemoglobin was 9.3 in August. Unclear if blood loss anemia related to GI bleed. Nursing reports black stools but she is also on iron supplementation. May need
transfusion if hemoglobin drops further.
Large sacral decubital wound -consult surgery for possible debridement.
PAD -right above-knee amputation. Does not have a prosthesis. Is wheelchair and bedbound.
DM2 without hyperglycemia -use low resistance insulin scale for now.
Essential hypertension -hold antihypertensives for shock.
CAD -stable.
Chronic urinary retention -chronic Kitchen catheter as above.
Chronic cervical myelopathy
Hyperlipidemia
Anxiety disorder
Morbid obesity due to excess calories
Wheelchair and bedbound status
DNR
DVT Prophylaxis: Heparin subq (cannot do SCDs due to hip fracture)
Anticipated Discharge: > 48 hours
Subjective/Interval History
-
Date of Service: November 28, 2023
Patient was seen and examined. She reported no new symptoms or complaints.
Objective Data
-
Labs:
Laboratory Results
11/28/23
03:48
WBC 19.1 H
Hgb 7.3 L
Hct 22.9 L
Plt Count 374
Sodium 130 L
Potassium 4.6
Chloride 103
Carbon Dioxide 23
BUN 51 H
Creatinine 2.2 H
Glucose 101 H
Calcium 9.2
Total Bilirubin 0.8
AST 15
ALT < 10
Alkaline Phosphatase 211 H
Vital Signs:
Vital Signs
Temp Pulse Resp BP Pulse Ox
98.6 F 81 25 100/79 94
11/28/23 07:37 11/28/23 08:30 11/28/23 08:30 11/28/23 08:30 11/28/23 08:15
I&O
11/27/23 11/28/23 11/29/23
06:59 06:59 06:59
Intake Total 2460 / 2460
Output Total 3000 / 3000
Balance -540 / -540
--- NOTE | 2023-11-28 09:55 | W.PN.NEPH.PH ---
Today's Communication / Plan
-
follow BMP
Assessment/Plan
-
Impression:
Abdominal distention and pain presentation
Acute kidney injury
Hyponatremia
Hypotension and likely evolving sepsis/leukocytosis
Chronic Marie
Nonambulatory due to previous cervical surgery and right AKA
PAD
History of hypertension now hypotensive
Diabetes with multiple microvascular complication
History of cervical myelopathy
History of right carotid endarterectomy
History of coronary artery disease
Anemia
Sacral wound
Plan:
follow BMP
follow Hgb, stable though low
holding ARB still
maintain marie
-
-
Date of Service: November 28, 2023
CC / HPI / ROS
-
Chief Complaint:
BOOKER
History of Present Illness:
BOOKER/Cr down to 2.2
UOP improved with new Marie
BP stable off pressors
Na up to 130
K normalized
Review of Systems:
no CP/SOB
Labs
-
Labs:
WBC 19.1 10^3/uL (4.8-10.8) H 11/28/23 03:48
RBC 2.91 10^6/uL (4.20-5.40) L 11/28/23 03:48
Hgb 7.3 g/dL (12.0-16.0) L 11/28/23 03:48
Hct 22.9 % (37.0-47.0) L 11/28/23 03:48
Plt Count 374 10^3/uL (130-400) 11/28/23 03:48
Sodium 130 mmol/L (135-145) L 11/28/23 03:48
Potassium 4.6 mmol/L (3.5-5.1) 11/28/23 03:48
Chloride 103 mmol/L (98-107) 11/28/23 03:48
Carbon Dioxide 23 mmol/L (22-30) 11/28/23 03:48
BUN 51 mg/dl (7-17) H 11/28/23 03:48
Creatinine 2.2 mg/dL (0.6-1.0) H 11/28/23 03:48
eGFR 22.95 11/28/23 03:48
Glucose 101 mg/dl (70-99) H 11/28/23 03:48
Calcium 9.2 mg/dl (8.4-10.2) 11/28/23 03:48
Albumin 2.1 g/dl (3.5-5.0) L 11/28/23 03:48
Physical Exam
-
Vital Signs:
Vital Signs
Temp Pulse Resp BP Pulse Ox
98.6 F 85 22 114/45 96
11/28/23 07:37 11/28/23 09:30 11/28/23 09:30 11/28/23 09:30 11/28/23 09:48
Respiratory:: Bilateral: Coarse
Lung Excursion:: Normal
Abdomen:: Nontender and Soft
Bowel Sounds:: Normal
Extremity Edema:: None: Bilateral:
[2023-11-28 10:10] LABS: Glycohemoglobin (HgbA1c) 7.6 % (4.0-5.6)
--- NOTE | 2023-11-28 10:21 | PHA.VAN.FU ---
Vancomycin Assessment / Plan
- Assessment
Renal Function: SCR Decreasing
WBC's are: Stable
Concomitant Antimicrobials: cefepime
- Assessment - Therapeutic Drug Monitoring
Random Level: 13.5 - drawn ~10.5H after initial dose of 1500mg
- Dosing Plan
Dosing by Level: Re-dose today (Vanc 1250mg)
- Monitoring Plan
Random Level: 11/28 06
- Follow Up
Pharmacy will continue to follow.
Vancomycin Follow UP
- -
Patient Age: 73
Patient Sex: Female
Vancomycin Day #: 2
Indication: Bacteremia
Requesting Provider: Dr Colindres
Pertinent Antimicrobial Allergies:
NKDA
Height / Weight:
Height 5 ft 7 in
Actual Weight 91.6 kg
Pertinent Past Medical History: BMI ~32, DM2, PAD, wheelchair bound
- Vital Signs / Lab Results
Temp Pulse Resp BP Pulse Ox
98.6 F 85 19 104/53 95
11/28/23 07:37 11/28/23 10:15 11/28/23 10:15 11/28/23 10:15 11/28/23 10:15
Lab Results - Hematology
11/27/23 11/28/23
08:45 03:48
WBC 18.4 H 19.1 H
Lab Results - Chemistry
11/27/23 11/27/23 11/27/23
08:45 09:41 17:32
BUN 59 H 57 H
Creatinine 3.2 H 2.7 H
Estimated Creat Clear 21
Albumin 2.1 L 2.2 L
11/28/23
03:48
BUN 51 H
Creatinine 2.2 H
Estimated Creat Clear 26
Albumin 2.1 L
11/27/23 11/27/23
12:27 17:32
Lactic Acid 2.2 H 1.5
Lab Results - Urine
11/27/23
12:27
Urine Nitrite (Reflex) Positive A
Leukocyte Esterase Rfl 2+ A
Ur Squamous Epith Cells 0-2
Microbiology Results
11/27/23 12:38 Wound Culture - Preliminary
Sacral Staph aureus MRSA
Diptheroids
Gram Stain - Preliminary
11/27/23 12:27 Influenza Types A & B (SHERIN) - Final
Nasal Swab Negative for Influenza A & B, NAAT
Negative results must be combined with clinical observations
and patient history.
Nucleic Acid Amplification test (NAAT)performed on the
[employer] platform.
Therapeutic Drug Monitoring
Random Vancomycin 13.5 ug/ml 11/28/23 03:48
--- NOTE | 2023-11-28 10:28 | W.PN.GS2 ---
Addendum entered and electronically signed by Nestor Guerra MD 11/28/23 17:54:
I saw and examined the patient independently.
The Tube Former Operator's note was reviewed and I agree with the note, assessment and plan except where noted below.
Comment: CT pelvis reviewed no abscess or osteomyelitis noted over the sacrum. She does have a fairly sizable area of eschar but debridement would likely just leave her a very large wound that would be difficult to heal.
Will plan for nonoperative management for now, offloading with frequent turning.
Hopefully the superficial layers will slough off and we can minimize the extent of debridement necessary down the road.
Left femur fracture per primary.
General surgery will continue to follow.
Original Note:
Today's Communication / Plan
-
CT of pelvis
Assessment / Plan
-
73 yo female with h/o chronic marie, DM, CAD, HTN, r AKA presenting from SNF with sepsis which is improving. Off pressors but still with leukocytosis. Fever of 101 at 1600 11/26. VSS. Suspect sepsis is in origin but does have foul smelling
unstageable decubitus ulcer (present on admission). Wound culture with multiple organisms (GI and skin louis including MRSA).
--Check CT imaging of the pelvis to further evaluate. Unable to use contrast given poor GFR
--Will need eventual nonurgent debridement, timing TBD pending CT imaging findings
--Consult wound care to follow
--Offload sacrum/frequent repositioning
Subjective Data
-
Date of Service: November 28, 2023
Patient seen and examined at bedside with Dr. Guerra. Patient has no sensation to her sacrum.
Objective Data
-
Intake and Output
11/27/23 11/28/23 11/29/23
06:59 06:59 06:59
Intake Total 2460 / 2460
Output Total 3000 / 3000
Balance -540 / -540
Intake:
Oral fluids 360 / 360
IV fluids (Total) 1800 / 1800
IV piggybacks 300 / 300
Output:
Urine, Marie 3000 / 3000
Vital Signs
Temp Pulse Resp BP Pulse Ox
98.6 F 85 19 104/53 95
11/28/23 07:37 11/28/23 10:15 11/28/23 10:15 11/28/23 10:15 11/28/23 10:15
Lab Results
11/28/23 03:48
11/28/23 03:48
Calcium 9.2 mg/dl (8.4-10.2) 11/28/23 03:48
Total Bilirubin 0.8 mg/dl (0.2-1.3) 11/28/23 03:48
AST 15 U/L (14-36) 11/28/23 03:48
ALT < 10 U/L (0-35) 11/28/23 03:48
Alkaline Phosphatase 211 U/L (38-126) H 11/28/23 03:48
Total Protein 4.7 g/dl (6.3-8.2) L 11/28/23 03:48
Albumin 2.1 g/dl (3.5-5.0) L 11/28/23 03:48
Physical Exam
-
NAD
ABD soft, ND, obese, NT
Marie with cloudy sediment, some pink urine noted in tubing
Sacrum with unstageable pressure ulcer. Eschar tissue over wound bed. Foul smelling but no drainage.
[2023-11-28] MEDS: VANCOCIN 275 MG IV (11:59)
--- NOTE | 2023-11-28 12:03 | WOUNDNOTE ---
SACRAL/BUTTOCKS (with photo flash)
--- NOTE | 2023-11-28 12:03 | WOUNDNOTE ---
SACRAL/BUTTOCKS (with photo flash)
--- NOTE | 2023-11-28 12:04 | WOUNDNOTE ---
R THIGH (UPPER POSTERIOR NEAR BUTTOCKS)
--- NOTE | 2023-11-28 12:05 | WOUNDNOTE ---
L KNEE (DISTAL LATERAL)
--- NOTE | 2023-11-28 12:07 | WOUNDNOTE ---
[facility] RN note: Patient admitted with BOOKER. Patient has L femur fracture. Patient admitted from [facility]. Ortho consulted for L femur fracture as per surgical REEL CUTTER Nita.
See H&P for complete history.
PMH: bedbound/wheelchair bound, PAD, R AKA, chronic urinary retention, anemia, CAD, HTN, obesity, spinal stenosis, R fem pop, lumbar laminectomy, spine stimulator implant.
Wound Location and type/assessment: Patient admitted with: large black necrotic unstageable sacral/buttocks pressure injury. R upper posterior near buttocks red/purple ecchymotic area suspect stage 1 vs evolving DTI. L lateral distal knee small
deep dermal stage 2 pressure injury vs from trauma? Pelvic CT was negative for abscess and OM as per FERNANDO Moya.
Appetite: fair.
Pressure redistribution devices in place: Centrella Max air bed. Foam turning wedge. Patient stated she has an air mattress at [facility].
Plan: Sacral/buttocks dressing changed. Silicone border foam applied R posterior upper thigh. Patient turned to R semi side lying position with help from MARII Mcmanus. L heel off bed with air chair cushion. t/c SPD and ordered TruVue Lite heel relief
boots. General surgery evaluated sacral ulcer and eventual debridement is planned. Obtained wound care orders and L heel relief boot order from FERNANDO Villanueva. Discussed with MARII Mcmanus.
Care plan to be updated and will follow as needed.
[2023-11-28 12:12] LABS: Glucose - Point of Care 123 mg/dl (70-99)
--- NOTE | 2023-11-28 12:20 | PTCARENOTE ---
Assumed care of patient at beginning of this shift from previous RN; levophed turned off by maintenance technician 3rd shift RN as patient was at goal. Cannot verify accuracy of vital signs prior to 0700. IVF completed; reviewed with Dr Holley via tiger text who responded
that IVF may remain off. Surgery in to see patient; WOC and CT scan ordered. Nelly Hall made aware of consult and saw patient when she returned from CT scan. Surgery returned and informed patient that she has a fractured femur; she ordered
ortho consult. See all updated orders, including wound care ordered. See worklist for full assessment and vital signs; see MAR for med administration.
[2023-11-28 16:38] LABS: Glucose - Point of Care 149 mg/dl (70-99)
--- NOTE | 2023-11-28 17:09 | CM ---
Patient from [facility] with Hx right AKA without prosthesis, with Dx septic shock, BOOKER, hyponatremia, hypokalemia, anemia, Large sacral decubital wound. Seen by wound care nurse.
Spoke with Ela, [facility];
the patient is currently residing at [facility] for rehab (short term to residential care), and is paying privately for a bed hold.
The patient is mostly oriented, is dependent for LB transfers, independent in upper body mobility, independent in w/c mobility. PCP - Rohan. Pharmacy - [facility]. They are able to accept the patient back when medically ready.
Plan speak with patient/ to confirm return to [facility].
Plan probable [facility] when medically ready.
[2023-11-28] MEDS: HEPARIN 5000 UNITS SC (17:10)
[2023-11-28] MEDS: TYLENOL 650 MG PO (20:10)
[2023-11-28] MEDS: NEURONTIN 300 MG PO (22:42)
[2023-11-28] MEDS: DESENEX/MITRAZOL/ZEASORB 1 APPLIC TOPICAL (22:42)
[2023-11-28] MEDS: DAKIN'S SOLUTION 0.125% 1/4 STRENGTH 473 ML TOPICAL (22:42)
[2023-11-28 23:02] LABS: Glucose - Point of Care 129 mg/dl (70-99)
[2023-11-29] VITALS (17 sets, daily range): BP systolic 100–152; BP diastolic 46–120; BMI 29.4
[2023-11-29] MEDS: HEPARIN 5000 UNITS SC ×3 (00:50→18:02)
[2023-11-29] MEDS: NOVOLOG FLEXPEN-LOW RESISTANCE SC ×3 (07:52→18:01)
[2023-11-29 07:53] LABS: Glucose - Point of Care 111 mg/dl (70-99)
--- NOTE | 2023-11-29 07:55 | W.PN.UPDATE ---
Update Note
Progress Note Update
Pt seen and chart reviewed
With L IT hip fx
Suspect occurred several weeks ago given some callous (healing) formation on xray
Having no pain
For several reasons which I will document in my dictated consult--I feel it is reasonable to treat this fracture nonoperatively
(This is what the patient desires as well)
It is OK to mobilize her as tolerated
Obviously cannot bear weight on the L LE until the fx is healed--but is OK to transfer from bed to chair/mobilize for skin-decubitus care
Please have F/U with me in about 2 weeks as outpt
thanks
GGMD
[2023-11-29] MEDS: STERILE WATER FOR INJECTION 10 ML IV (08:43)
[2023-11-29] MEDS: MAXIPIME 1000 MG IV (08:43)
[2023-11-29] MEDS: DAKIN'S SOLUTION 0.125% 1/4 STRENGTH 1 ML TOPICAL (08:44)
--- NOTE | 2023-11-29 09:14 | W.PN.UPDATE ---
Update Note
Progress Note Update
Patient seen and examined. Agree with prior assessments. No pain. No drainage or spreading erythema. No need or indication for urgent surgical debridement of sacral decubitus ulcer. Appears to have necrotic skin with no evidence either
clinically or radiographically for underlying abscess or infection. Could consider operative debridement of this area, however, recommend further workup for alternative sources of her infection. All questions answered. Please call with any
questions or concerns.
--- NOTE | 2023-11-29 09:34 | PN.CDI ---
CDI
- -
CDI:
Physician Documentation Request
Admit Date: 11/27/23 12:59
Dear Doctor Carson,
Patient admitted for sepsis.
11/27 Wound Care: 'R upper posterior near buttocks red/purple ecchymotic area suspect stage 1 vs evolving DTI. L lateral distal knee small deep dermal stage 2 pressure injury vs from trauma?'
Physician documentation of the type and location of wounds is required for compliant documentation. Based on the above clinical findings and your assessment, please provide the following in your progress note:
1. Location of the ulcer/wound, including laterality.
2. Type (etiology) of ulcer/wound:
- Diabetic ulcer
- Arterial (ischemic) ulcer
- Traumatic wound
- Venous stasis ulcer
- Pressure (decubitus) ulcer
- Non-healing surgical wound
- Other
- Unable to determine
3. For a non-pressure ulcer, please indicate the depth/severity:
- Limited to the breakdown of skin
- With fat layer exposed
- With necrosis of muscle
- With necrosis of bone
- Other
- Unable to determine
4. If a pressure ulcer, please also include the stage* of the ulcer:
- Stage 1 - Skin intact, non-blanchable redness
- Stage 2 - Partial thickness loss of dermis, includes intact or open blister
- Stage 3 - Full thickness tissue not including bone, tendon or muscle
- Stage 4 - Full thickness tissue loss, including exposed bone, tendon or muscle
- Unstageable - Full thickness loss in which the base of the ulcer is covered by slough (yellow, singh, holcomb, green or brown) and/or eschar (singh, brown or black) in the wound bed.
- Unable to determine
Use of terms such as suspected, likely, concern for, or probable (associated with a specific diagnosis that is being evaluated, monitored, or treated as if it exists) are acceptable and can be coded in the inpatient setting, when documented at the
time of discharge.
Thank you,
Jeanette Eller RN, BSN
CDI Specialist
Available via [place] text
Please use your independent medical judgment in providing your response.
*Source: National Pressure Ulcer Advisory Panel (NPUAP)
[2023-11-29 10:07] LABS: % Basophils 0.7 % (0-2); % Eosinophils 0.9 % (0-6); % Immature Granulocytes 4.5 % (0-0.5); % Lymphocytes 7.8 % (20.5-51.1); % Monocytes 7.9 % (1.7-9.3); % Neutrophils 78.2 % (42.2-75.2); Absolute Basophils 0.1 10^3/uL (0-0.2); Absolute Eosinophils 0.1 10^3/uL (0-0.7); Absolute Immature Granulocytes 0.5 10^3/uL (0-0.05); Absolute Lymphocytes 0.9 10^3/uL (1.2-3.4); Absolute Neutrophils 9.4 10^3/uL (1.4-6.5); Hematocrit 22.1 % (37.0-47.0); Hemoglobin 7.1 g/dL (12.0-16.0); Mean Corp Hgb Conc. 32.1 g/dL (33.0-37.0); Mean Corpuscular Hgb 25.2 pg (27.0-31.0); Mean Corpuscular Volume 78.4 fL (81.0-99.0); Mean Platelet Volume 9.1 fL (7.4-10.4); Nucleated Red Blood Cells % 0 %; Platelet Count 409 10^3/uL (130-400); Red Blood Cell Count 2.82 10^6/uL (4.20-5.40); Red Cell Dist. Width 17.7 % (11.5-14.5)
--- NOTE | 2023-11-29 10:13 | CON.ID ---
Consultation
-
Date/Time Consultation Requested: 11/29/2023, 0911
Date/Time Consultation Performed: 11/29/2023, 1015
Requesting Provider: Dr. Srinivasa Byrd
Performing Provider: Dr. Catarina Torre
Reason for Consultation: Septic shock, sacral wound
Chief Complaint / Past History
Chief Complaint
Inermittent abd pain
History of Present Illness
73 year old female with DM, PAD s/p recent R AKA, now bedbound, chronic marie who presented from [facility] on 11/16 with poor appetite, intermittent lower abd pain. She was febrile to 101.2, WBC 18, BP low. She was started on Vanco, cefepime. Pt has
unstageable sacral decubitus. No CT evidence of osteo. Wound cx with MRSA. Pt reports she is feeling better today. No diarrhea. No N/V. No cough/SOB. No flank pain.
Past History
Additional Past Medical History:
NIDDM
Neuropathy
CAD
HTN
Hypercholesterolemia
Chronic back pain s/p spinal stimulator implant (2020)
PAD s/p R AKA (08/2023)
R CEA (2012)
Lumbar laminectomy (2016)
C-spine fracture surgery 2021
bladder plication (2012)
Allergy History:
No Known Allergies Allergy (Verified 08/01/23 13:24)
Medications Reviewed: Yes
Current Antibiotics:
Vancomycin d3
Cefepime d3
Social History
Tobacco: Former Smoker
Alcohol: None
Drug: None
Personal:
Living: Assisted
Family History
Family History: Not Pertinent
Review of Systems
Review of Systems
General: Chills
HEENT: Negative Stiff Neck, Sinus Problems, Headache or Pharyngitis
Cardiovascular: Negative Chest Pain or Edema
Respiratory: Negative Dyspnea or Cough
Gasteroenterology: Negative Nausea or Vomiting
Genital / Urological: Negative Flank Pain
Skin / Hair / Nails: Negative Rash
Neurological: Negative Headache
All systems: All other systems were reviewed and were negative
Vital Signs
Temp Pulse Resp BP Pulse Ox
98.9 F 77 21 143/54 96
11/29/23 07:26 11/29/23 07:00 11/29/23 07:00 11/29/23 07:00 11/29/23 07:00
Physical Exam
Physical Exam
Constitutional: No Acute Distress, Comfortable and Obese
Eyes: Sclera Anicteric
Cardiovascular: Regular Rate and S1/S2
Pulmonary: Clear
Gastrointestinal: Soft, Non Tender, Non Distended and Normal Bowel Sounds
Genito-Urinary: Marie and Clear Urine (dark)
Extremities: Other; Negative Edema
Wound: Other (Review of sacral wound photos: large area of black/purplish unstageable wound - suspect deep tissue injury)
Neurological: AO x 3
Lab / Diagnostic Study Results
Abs Immat Gran (auto) 0.4 10^3/uL (0-0.05) H 11/28/23 03:48
Absolute Neuts (auto) 15.6 10^3/uL (1.4-6.5) H 11/28/23 03:48
Absolute Lymphs (auto) 1.5 10^3/uL (1.2-3.4) 11/28/23 03:48
Absolute Monos (auto) 1.5 10^3/uL (0.1-0.6) H 11/28/23 03:48
Absolute Basos (auto) 0.1 10^3/uL (0-0.2) 11/28/23 03:48
Immature Gran % 2.0 % (0-0.5) H 11/28/23 03:48
Neutrophils % 81.5 % (42.2-75.2) H 11/28/23 03:48
Lymphocytes % 7.8 % (20.5-51.1) L 11/28/23 03:48
Monocytes % 7.7 % (1.7-9.3) 11/28/23 03:48
Eosinophils % 0.7 % (0-6) 11/28/23 03:48
Basophils % 0.3 % (0-2) 11/28/23 03:48
PT 16.4 Sec (11.4-14.6) H 11/27/23 09:41
INR 1.34 11/27/23 09:41
Lactic Acid 1.5 mmol/L (0.7-2.0) 11/27/23 17:32
Ur Squamous Epith Cells 0-2 /LPF (Few) 11/27/23 12:27
Microbiology Results
Micro:
11/27/23 12:27 Urine Culture - Preliminary
Urine Enterococcus species
11/27/23 12:38 Wound Culture - Final
Sacral Staph aureus MRSA
Diptheroids
Gram Stain - Preliminary
11/27/23 20:51 MRSA Screen - Final
Nose No Methicillin Resistant Staphylococcus aureus isolated.
11/27/23 12:27 Blood Culture - Preliminary
Blood/Venous No Growth in 24 hours- Final report to follow
11/27/23 12:27 Blood Culture - Preliminary
Blood/Venous No Growth in 24 hours- Final report to follow
11/27/23 12:27 Influenza Types A & B (SHERIN) - Final
Nasal Swab Negative for Influenza A & B, NAAT
Negative results must be combined with clinical observations
and patient history.
Nucleic Acid Amplification test (NAAT)performed on the
[employer] platform.
11/27/23 CXR: Vague increase in opacity in the posterior left lung base, question atelectasis versus pneumonia
11/27/23 Abd US: No ascites. The urinary bladder is fairly well-distended, with a Marie catheter in place.�
11/28/23 CT a/p w/o contrast: Soft tissue stranding overlying the coccyx, consistent with the patient's history of pressure sore. No associated abscess formation, and no CT evidence of osteomyelitis. Comminuted fracture of the proximal left femur,
which has a relatively acute appearance. Please correlate with history. Mild diffuse soft tissue anasarca.
11/28/23 Left hip XRAY: There is an acute comminuted oblique intertrochanteric fracture of the left femur with approximately 1 cm impaction of the distal fracture fragment.
Assessment / Plan
# Enterococcus CAUTI
- Continue Vanco pending susceptibility
-DC cefepime.
# Sacral deep tissue injury
- No CT evidence of osteo
- Continue Vancomycin for now then outpt po doxycycline to complete 14d total abx course.
# Fever resolved
# Leukocytosis trending down
[2023-11-29 10:23] LABS: Vancomycin Random 13.2 ug/ml
[2023-11-29 10:32] LABS: Blood Urea Nitrogen 33 mg/dl (7-17); Calcium 9.2 mg/dl (8.4-10.2); Carbon Dioxide 24 mmol/L (22-30); Chloride 104 mmol/L (98-107); Estimated Creatinine Clearance 55 ml/min; Glucose 142 mg/dl (70-99); Sodium 132 mmol/L (135-145); eGFR 59.12
--- NOTE | 2023-11-29 10:36 | PHA.VAN.FU ---
Vancomycin Assessment / Plan
- Assessment
Renal Function: SCR Decreasing
WBC's are: WNL
In the past 24 hrs, patient has been: Afebrile
Concomitant Antimicrobials: cefepime
- Assessment - Therapeutic Drug Monitoring
Random Level: 13.2 - drawn ~22H after previous dose of 1250mg
- Dosing Plan
Dosing by Level: Re-dose today (Vanc 1250mg)
- Monitoring Plan
Random Level: 11/29 06
- Follow Up
Pharmacy will continue to follow.
Vancomycin Follow UP
- -
Patient Age: 73
Patient Sex: Female
Vancomycin Day #: 3
Indication: Bacteremia
Requesting Provider: Dr Colindres
Pertinent Antimicrobial Allergies:
NKDA
Height / Weight:
Height 5 ft 7 in
Actual Weight 85.2 kg
Pertinent Past Medical History: BMI ~32, DM2, PAD, wheelchair bound
- Vital Signs / Lab Results
Temp Pulse Resp BP Pulse Ox
98.9 F 77 21 143/54 96
11/29/23 07:26 11/29/23 07:00 11/29/23 07:00 11/29/23 07:00 11/29/23 07:00
Lab Results - Hematology
11/27/23 11/28/23
08:45 03:48
WBC 18.4 H 19.1 H
Lab Results - Chemistry
11/27/23 11/27/23 11/27/23
08:45 09:41 17:32
BUN 59 H 57 H
Creatinine 3.2 H 2.7 H
Estimated Creat Clear 21
Albumin 2.1 L 2.2 L
11/28/23 11/29/23
03:48 09:49
BUN 51 H 33 H
Creatinine 2.2 H 1.0
Estimated Creat Clear 26 55
Albumin 2.1 L
03/24/24 03/24/24
12 17:32
Lactic Acid 2.2 H 1.5
Microbiology Results
11/27/23 12:27 Urine Culture - Preliminary
Urine Enterococcus species
11/27/23 12:38 Wound Culture - Final
Sacral Staph aureus MRSA
Diptheroids
Gram Stain - Preliminary
11/27/23 20:51 MRSA Screen - Final
Nose No Methicillin Resistant Staphylococcus aureus isolated.
11/27/23 12:27 Blood Culture - Preliminary
Blood/Venous No Growth in 24 hours- Final report to follow
11/27/23 12:27 Blood Culture - Preliminary
Blood/Venous No Growth in 24 hours- Final report to follow
11/27/23 12:27 Influenza Types A & B (SHERIN) - Final
Nasal Swab Negative for Influenza A & B, NAAT
Negative results must be combined with clinical observations
and patient history.
Nucleic Acid Amplification test (NAAT)performed on the
[email or web address] platform.
Therapeutic Drug Monitoring
Random Vancomycin 13.2 ug/ml 11/29/23 09:49
--- NOTE | 2023-11-29 10:43 | W.PN.NEPH.PH ---
Today's Communication / Plan
-
follow BMP
Assessment/Plan
-
Impression:
Abdominal distention and pain presentation
Acute kidney injury
Hyponatremia
Hypotension and likely evolving sepsis/leukocytosis
Chronic Marie
Nonambulatory due to previous cervical surgery and right AKA
PAD
History of hypertension now hypotensive
Diabetes with multiple microvascular complication
History of cervical myelopathy
History of right carotid endarterectomy
History of coronary artery disease
Anemia
Sacral wound
Plan:
follow BMP
follow Hgb, stable though low
restart losartan 12.5mg daily
maintain marie
-
-
Date of Service: November 29, 2023
CC / HPI / ROS
-
Chief Complaint:
BOOKER
History of Present Illness:
BOOKER/Cr down to 1.0
UOP improved with new Marie
BP stable off pressors
Na up to 132
K normalized at 4
Review of Systems:
no CP/SOB
Labs
-
Labs:
WBC 12.0 10^3/uL (4.8-10.8) H 11/29/23 09:49
RBC 2.82 10^6/uL (4.20-5.40) L 11/29/23 09:49
Hgb 7.1 g/dL (12.0-16.0) L 11/29/23 09:49
Hct 22.1 % (37.0-47.0) L 11/29/23 09:49
Plt Count 409 10^3/uL (130-400) H 11/29/23 09:49
Sodium 132 mmol/L (135-145) L 11/29/23 09:49
Potassium 4.0 mmol/L (3.5-5.1) 11/29/23 09:49
Chloride 104 mmol/L (98-107) 11/29/23 09:49
Carbon Dioxide 24 mmol/L (22-30) 11/29/23 09:49
BUN 33 mg/dl (7-17) H 11/29/23 09:49
Creatinine 1.0 mg/dL (0.6-1.0) 11/29/23 09:49
eGFR 59.12 11/29/23 09:49
Glucose 142 mg/dl (70-99) H 11/29/23 09:49
Calcium 9.2 mg/dl (8.4-10.2) 11/29/23 09:49
Albumin 2.1 g/dl (3.5-5.0) L 11/28/23 03:48
Physical Exam
-
Vital Signs:
Vital Signs
Temp Pulse Resp BP Pulse Ox
98.9 F 81 22 138/120 94
11/29/23 07:26 11/29/23 10:00 11/29/23 10:00 11/29/23 08:00 11/29/23 10:00
Cardiovascular:: Regular rate and rhythm
Respiratory:: Bilateral: Coarse
Lung Excursion:: Normal
Abdomen:: Nontender and Soft
Bowel Sounds:: Normal
Extremity Edema:: None: Bilateral:
[2023-11-29] MEDS: COZAAR 12.5 MG PO (11:56)
[2023-11-29] MEDS: VANCOCIN 275 MG IV (12:04)
[2023-11-29 12:17] LABS: Glucose - Point of Care 144 mg/dl (70-99)
[2023-11-29 17:09] LABS: Glucose - Point of Care 157 mg/dl (70-99)
--- NOTE | 2023-11-29 17:17 | W.PN.HOSP.TC ---
Addendum entered and electronically signed by Srinivasa Byrd MD 11/29/23 19:03:
Due to patient's worsening anemia, I ordered a CT Abdomen Pelvis with IV contrast to evaluate for retroperitoneal hematoma, will also check CT of the bilateral hips/thighs to check for any bleeding giving recent hip fracture. I discussed with
on-call health information tech who said it is okay to do CT with IV contrast as long as Losartan is held, so I held Losartan. Repeat CBC ordered for tonight.
Original Note:
Today's Communication/Plan
-
Please see below
Assessment / Plan
Assessment / Plan
Physical Exam
General: Not in acute distress
HEENT: Normocephalic, Moist mucous membranes
Respiratory: Clear
Cardiac: S1/S2 and Regular Rhythm
GI: Soft, Non Tender and Non Distended. Positive bowel sounds.
Genito-urinary: Kitchen
Musculoskeletal: No Cyanosis, No Edema and Other (Right above-knee amputation)
Skin: Warm and Dry
Neuro: AAO x 3
Psych: Calm

Septic shock
Enterococcus CAUTI
- differential diagnosis includes catheter associated urinary tract infection versus sacral decubital wound infection versus other. Continue monitoring in IMU. Blood pressure improved with IV fluids and Levophed.
Continue broad-spectrum antibiotics. Await cultures.
Lactic acidosis due to sepsis.
Sacral wound growing MRSA, Diptheroids, gram stain was polymicrobial
ID consulted, recommendations appreciated
Acute left proximal femoral fracture on CT Imaging secondary to a fall ~1 week prior to presentation out of wheelchair; orthopedics consulted, recommendations appreciated: via [place] Text, Dr Mahmood (on November 28, 2023) mentioned that may be a
non-operative candidate as high risk or infection with placement of hardware and also a non-ambulator.
BOOKER -likely due to ATN from sepsis, shock, etc. Nephrology consulted. Plan to exchange Kitchen catheter. Bladder is distended on ultrasound despite Kitchen catheter.
Hyponatremia -sodium was 122. Likely hypovolemic. Check urine studies. Nephrology consulted.
Hyperkalemia - RESOLVED - suspect due to BOOKER.
Acute on chronic anemia -hemoglobin 7.4->7.3->7.1 today. Baseline unknown, last hemoglobin was 9.3 in August. Unclear if blood loss anemia related to GI bleed. Nursing reports black stools but she is also on iron supplementation. May need
transfusion if hemoglobin drops further. Will consider resuming Aspirin and Plavix after discussing with vascular surgery, GI, cardiology, and orthopedics.
Large sacral decubital wound -consult surgery for possible debridement.
PAD -right above-knee amputation. Does not have a prosthesis. Is wheelchair and bedbound.
DM2 without hyperglycemia -use low resistance insulin scale for now.
Essential hypertension -hold antihypertensives for shock.
CAD -stable.
Chronic urinary retention -chronic Kitchen catheter as above.
Chronic cervical myelopathy
Hyperlipidemia
Anxiety disorder
Morbid obesity due to excess calories
Wheelchair and bedbound status
R upper posterior near buttocks red/purple ecchymotic area suspect stage 1 vs evolving DTI. L lateral distal knee small deep dermal stage 2 pressure injury vs from trauma?
DNR
DVT Prophylaxis: Heparin subq (cannot do SCDs due to hip fracture)
Anticipated Discharge: > 48 hours
Subjective/Interval History
-
Date of Service: November 29, 2023
Objective Data
-
Labs:
Laboratory Results
11/29/23
09:49
WBC 12.0 H
Hgb 7.1 L
Hct 22.1 L
Plt Count 409 H
Sodium 132 L
Potassium 4.0
Chloride 104
Carbon Dioxide 24
BUN 33 H
Creatinine 1.0
Glucose 142 H
Calcium 9.2
Vital Signs:
Vital Signs
Temp Pulse Resp BP Pulse Ox
99.7 F 79 20 126/48 93
11/29/23 15:56 11/29/23 16:00 11/29/23 16:00 11/29/23 16:00 11/29/23 16:00
I&O
11/28/23 11/29/23 11/30/23
06:59 06:59 06:59
Intake Total 2460 / 2460 1000 / 1000
Output Total 3000 / 3000 2050 / 205 650 / 650
Balance -540 / -540 -1050 / -1050 -650 / -650
--- NOTE | 2023-11-29 17:29 | CM ---
Patient from [facility] with Hx right AKA without prosthesis, with Dx septic shock, CAUTI, Acute left proximal femoral fracture secondary to a fall, anemia, Large sacral decubital wound. Room air. Receiving IV Vanco. Seen by wound care
nurse. Seen by Ortho- NWB status.
Patient will need PT/OT Evals for return to SNF with rehab.
Phone call from Ela, [facility]; the is holding the bed at [facility] until Tuesday. SNF referral placed.
Plan follow up after PT/OT Evals.
Plan speak with patient/ to confirm return to [facility].
Plan probable [facility] when medically ready.
[2023-11-29] MEDS: NEURONTIN 300 MG PO ×2 (18:02→20:43)
[2023-11-29] MEDS: TYLENOL 650 MG PO (18:23)
[2023-11-29 20:15] LABS: Hematocrit 21.5 % (37.0-47.0); Hemoglobin 7.1 g/dL (12.0-16.0); Mean Corpuscular Hgb 25.4 pg (27.0-31.0); Mean Corpuscular Volume 77.1 fL (81.0-99.0); Mean Platelet Volume 8.6 fL (7.4-10.4); Platelet Count 413 10^3/uL (130-400); Red Blood Cell Count 2.79 10^6/uL (4.20-5.40); Red Cell Dist. Width 17.7 % (11.5-14.5); White Blood Cell Count 11.9 10^3/uL (4.8-10.8)
[2023-11-29 20:31] LABS: Iron 31 ug/dl (37-170)
[2023-11-29] MEDS: COLACE 100 MG PO (20:34)
[2023-11-29] MEDS: LIPITOR 10 MG PO (20:34)
[2023-11-29] MEDS: DAKIN'S SOLUTION 0.125% 1/4 STRENGTH 473 ML TOPICAL (20:34)
[2023-11-29] MEDS: DESENEX/MITRAZOL/ZEASORB 1 APPLIC TOPICAL ×2 (20:35→20:42)
[2023-11-29 20:40] LABS: Percent Saturation 15 % (20-50); Total Iron Binding Capacity 196 ug/dl (265-497)
[2023-11-29 21:09] LABS: Ferritin 93.8 ng/ml (11.1-264.0)
[2023-11-29 21:46] LABS: Glucose - Point of Care 165 mg/dl (70-99)
[2023-11-30] VITALS (17 sets, daily range): BP systolic 106–174; BP diastolic 47–108; PULSE 80; O2SAT 94
[2023-11-30] MEDS: HEPARIN 5000 UNITS SC ×4 (00:02→23:38)
[2023-11-30 04:32] LABS: % Basophils 0.8 % (0-2); % Immature Granulocytes 7.1 % (0-0.5); % Monocytes 10.3 % (1.7-9.3); % Neutrophils 67.8 % (42.2-75.2); Absolute Basophils 0.1 10^3/uL (0-0.2); Absolute Eosinophils 0.2 10^3/uL (0-0.7); Absolute Immature Granulocytes 0.8 10^3/uL (0-0.05); Absolute Lymphocytes 1.4 10^3/uL (1.2-3.4); Absolute Monocytes 1.2 10^3/uL (0.1-0.6); Hematocrit 26.5 % (37.0-47.0); Hemoglobin 8.4 g/dL (12.0-16.0); Mean Corp Hgb Conc. 31.7 g/dL (33.0-37.0); Mean Corpuscular Volume 78.9 fL (81.0-99.0); Mean Platelet Volume 8.6 fL (7.4-10.4); Nucleated Red Blood Cells % 0.2 %; Platelet Count 454 10^3/uL (130-400); Red Blood Cell Count 3.36 10^6/uL (4.20-5.40); Red Cell Dist. Width 17.9 % (11.5-14.5); White Blood Cell Count 11.8 10^3/uL (4.8-10.8)
--- NOTE | 2023-11-30 04:38 | DOWNTIME ---
There was a [employer] Client [employer]ator [employer]r Downtime on 11/30/2023 from 0100 to 11/30/2023 at 0322. Downtime documentation of patient's care, including medication administrations, has been reconciled in the electronic record per guidelines. Refer to the
patient's paper chart under the miscellaneous tab to see printed paper medication records and downtime forms.
[2023-11-30 04:48] LABS: Vancomycin Random 15.3 ug/ml
[2023-11-30 04:51] LABS: Blood Urea Nitrogen 25 mg/dl (7-17); Calcium 9.6 mg/dl (8.4-10.2); Carbon Dioxide 22 mmol/L (22-30); Chloride 108 mmol/L (98-107); Estimated Creatinine Clearance 69 ml/min; Glucose 111 mg/dl (70-99); Potassium 4.1 mmol/L (3.5-5.1); Sodium 132 mmol/L (135-145); eGFR > 60.00
--- NOTE | 2023-11-30 06:40 | PTCARENOTE ---
No acute events overnight. Patient brought down for abd/pelvis CT. Reading pending.
[2023-11-30 08:10] LABS: Glucose - Point of Care 116 mg/dl (70-99)
[2023-11-30] MEDS: NOVOLOG FLEXPEN-LOW RESISTANCE SC (08:16)
--- NOTE | 2023-11-30 08:21 | W.PN.NEPH.PH ---
Today's Communication / Plan
-
sign off
Assessment/Plan
-
Impression:
Abdominal distention and pain presentation
Acute kidney injury
Hyponatremia
Hypotension and likely evolving sepsis/leukocytosis
Chronic Marie
Nonambulatory due to previous cervical surgery and right AKA
PAD
History of hypertension now hypotensive
Diabetes with multiple microvascular complication
History of cervical myelopathy
History of right carotid endarterectomy
History of coronary artery disease
Anemia
Sacral wound
Plan:
Creatinine normalized at 0.8 and remains grossly nonoliguric
Hyponatremia stable at 132
follow Hgb, stable though low
losartan 12.5mg daily
maintain marie
we will sign off
-
-
Date of Service: November 30, 2023
CC / HPI / ROS
-
Chief Complaint:
BOOKER
History of Present Illness:
Acute kidney injury resolved
UOP improved with new Marie
BP stable off pressors, now back on
Na up to 132
Review of Systems:
no CP/SOB
Nonoliguric by Marie
Labs
-
Labs:
WBC 11.8 10^3/uL (4.8-10.8) H 11/30/23 04:10
RBC 3.36 10^6/uL (4.20-5.40) L 11/30/23 04:10
Hgb 8.4 g/dL (12.0-16.0) L 11/30/23 04:10
Hct 26.5 % (37.0-47.0) L 11/30/23 04:10
Plt Count 454 10^3/uL (130-400) H 11/30/23 04:10
Sodium 132 mmol/L (135-145) L 11/30/23 04:10
Potassium 4.1 mmol/L (3.5-5.1) 11/30/23 04:10
Chloride 108 mmol/L (98-107) H 11/30/23 04:10
Carbon Dioxide 22 mmol/L (22-30) 11/30/23 04:10
BUN 25 mg/dl (7-17) H 11/30/23 04:10
Creatinine 0.8 mg/dL (0.6-1.0) 11/30/23 04:10
eGFR > 60.00 11/30/23 04:10
Glucose 111 mg/dl (70-99) H 11/30/23 04:10
Calcium 9.6 mg/dl (8.4-10.2) 11/30/23 04:10
Albumin 2.1 g/dl (3.5-5.0) L 11/28/23 03:48
Physical Exam
-
Vital Signs:
Vital Signs
Temp Pulse Resp BP Pulse Ox
98.5 F 74 18 150/66 94
11/30/23 04:14 11/30/23 07:00 11/30/23 07:00 11/30/23 06:00 11/30/23 07:00
Cardiovascular:: Regular rate and rhythm
Respiratory:: Bilateral: Coarse
Lung Excursion:: Normal
Abdomen:: Nontender
Bowel Sounds:: Decreased
Extremity Edema:: +1: Bilateral:
Marie Catheter: Yes
[2023-11-30] MEDS: NEURONTIN 300 MG PO ×3 (08:44→20:56)
[2023-11-30] MEDS: VITAMIN C 500 MG PO (08:44)
[2023-11-30] MEDS: VISBIOME 1 CAP PO (08:44)
[2023-11-30] MEDS: DESENEX/MITRAZOL/ZEASORB 1 APPLIC TOPICAL ×2 (08:45→20:56)
[2023-11-30] MEDS: THERAGRAN 1 TABLET PO (08:45)
[2023-11-30] MEDS: DAKIN'S SOLUTION 0.125% 1/4 STRENGTH 473 ML TOPICAL ×2 (08:45→20:56)
[2023-11-30] MEDS: COLACE 100 MG PO (08:45)
--- NOTE | 2023-11-30 08:48 | W.PN.HOSP.TC ---
Today's Communication/Plan
-
Will resume Aspirin monotherapy tomorrow
Patient clearly stated she does not want a blood transfusion in any case
Assessment / Plan
Assessment / Plan
Physical Exam
General: Not in acute distress
HEENT: Normocephalic, Moist mucous membranes
Respiratory: Clear
Cardiac: S1/S2 and Regular Rhythm
GI: Soft, Non Tender and Non Distended. Positive bowel sounds.
Genito-urinary: Kitchen
Musculoskeletal: No Cyanosis, No Edema and Other (Right above-knee amputation)
Skin: Warm and Dry
Neuro: AAO x 3
Psych: Calm

Septic shock
Enterococcus and Aerococcus CAUTI
- differential diagnosis includes catheter associated urinary tract infection versus sacral decubital wound infection versus other. Continue monitoring in IMU. Blood pressure improved with IV fluids and Levophed.
Continue broad-spectrum antibiotics with Vancomycin and at time of discharge, transition to Augmentin 875mg po bid through 12/06/23 and po doxycycline 100mg bid through 12/10/23
Lactic acidosis due to sepsis.
Sacral wound growing MRSA, Diptheroids, gram stain was polymicrobial
ID consulted, recommendations appreciated
Acute left proximal femoral fracture on CT Imaging secondary to a fall ~1 week prior to presentation out of wheelchair; orthopedics consulted, recommendations appreciated: via [place] Text, Dr Mahmood (on November 28, 2023) mentioned that may be a
non-operative candidate as high risk or infection with placement of hardware and also a non-ambulator.
BOOKER -likely due to ATN from sepsis, shock, etc. Nephrology consulted. Plan to exchange Kitchen catheter. Bladder is distended on ultrasound despite Kitchen catheter.
Hyponatremia -sodium was 122. Likely hypovolemic. Check urine studies. Nephrology consulted.
Hyperkalemia - RESOLVED - suspect due to BOOKER.
Acute on chronic anemia -hemoglobin 7.4->7.3->7.1->8 to 9 range today. Baseline unknown, last hemoglobin was 9.3 in August. Unclear if blood loss anemia related to GI bleed. Nursing reports black stools but she is also on iron supplementation.
On November 30, 2023 patient clearly stated to me (Dr. Byrd) that she does not want to get any potential blood transfusion even if her Hgb drops to less than 7.
-From cardiac perspective, patient does not need to be on DAPT--->can continue Aspirin monotherapy
-Per Vascular Surgery, can indefinitely discontinue Plavix and can hold aspirin 81 mg while determining source of anemia, however would reinitiate Aspirin once cleared medically
-GI consulted, recommendations appreciated
Constipation
-Bowel regimen
-GI consulted, recommendations appreciated
Large sacral decubital wound -consult surgery for possible debridement.
PAD -right above-knee amputation. Does not have a prosthesis. Is wheelchair and bedbound.
DM2 without hyperglycemia -use low resistance insulin scale for now.
Essential hypertension -hold antihypertensives for shock.
CAD and Coronary artery calcifications - stable.
Chronic urinary retention -chronic Kitchen catheter as above.
Chronic cervical myelopathy
Hyperlipidemia
Anxiety disorder
Morbid obesity due to excess calories
Wheelchair and bedbound status
R upper posterior near buttocks red/purple ecchymotic area suspect stage 1 vs evolving DTI. L lateral distal knee small deep dermal stage 2 pressure injury vs from trauma?
DNR
DVT Prophylaxis: Heparin subq (cannot do SCDs due to hip fracture)
On November 30, 2023, I spoke to the patient about the possible need for blood transfusion if her Hgb drops to less than 7, and the consequences (including clinical deterioration and ) were she not to get a blood transfusion if her Hgb dropped to
less than 7, and she clearly stated she does not want to get any blood transfusion in any case.
Anticipated Discharge: 24 - 48 hours
Subjective/Interval History
-
Date of Service: November 30, 2023
Patient was seen and examined. She reported no new symptoms or complaints today.
Objective Data
-
Labs:
Laboratory Results
11/30/23
04:10
WBC 11.8 H
Hgb 8.4 L
Hct 26.5 L
Plt Count 454 H
Sodium 132 L
Potassium 4.1
Chloride 108 H
Carbon Dioxide 22
BUN 25 H
Creatinine 0.8
Glucose 111 H
Calcium 9.6
Vital Signs:
Vital Signs
Temp Pulse Resp BP Pulse Ox
98.5 F 74 18 150/66 94
11/30/23 04:14 11/30/23 07:00 11/30/23 07:00 11/30/23 06:00 11/30/23 07:00
I&O
11/29/23 11/30/23 12/01/23
06:59 06:59 06:59
Intake Total 1000 / 1000 480 / 480 120 / 120
Output Total 2049 / 2049 1625 / 1625 800 / 800
Balance -1050 / -1050 -1145 / -1145 -680 / -680
--- NOTE | 2023-11-30 09:13 | PTCARENOTE ---
Assumed care of patient this morning. She is aaox3, denies any pain but reports does not have feeling in her legs/hips. She is on RA, however, while sleeping early this morning, pt's SPO2 dropping to 84%. 2L NC applied with improvement. As patient
was then awake this morning, 2L NC removed. Kitchen catheter maintained. She has not complaints at this time. Assessment, care and VS as charted.
--- NOTE | 2023-11-30 09:19 | CON.VAS ---
Addendum entered and electronically signed by Pedrito Kitchen III, MD 12/01/23 12:45:
This patient was seen and examined with ROBERTH Vargas. I agree with the history and physical exam as well as the assessment and plan. \\
Left thigh and hip area edematous and soft
Agree with plan
Signed:
Pedrito Kitchen III, MD
[facility] Vascular Surgery
[phone] (cell)
Original Note:
Consultation
Consultation Request
Date/Time Consultation Performed: 11/30/2023 1030
Requesting Provider: Hospitalist
Performing Provider: Catarina Lai NP-C for Dr. Pedrito Kitchen III, MD
Reason for Consultation: Anemia in setting of DAPT
Medical History
-
Chief Complaint: Abdominal pain
History of Present Illness:
This is a 73-year-old female with significant past medical history for peripheral artery disease, hypertension, diabetes, chronic Kitchen catheter for urinary retention, anemia, hypercholesterolemia, and obesity who was transferred from [facility]
alf for abdominal discomfort. Patient is well-known to our service for the management of her right lower extremity peripheral artery disease, please see list of vascular interventions below. She was last hospitalized in August 2023, at
that time right below-knee amputation was performed by Dr. Chris Higuera. She was discharged to [facility] home following this hospitalization, and endorses that she has remained either bed or wheelchair bound since surgery. During this admission
patient was found to have anemia and left femur fracture with surrounding stable hematoma. Patient suspects this injury occurred several weeks ago after she slid down and then out of her wheelchair at the nursing facility. She states at that time
her pain was manageable, so she did not seek medical evaluation. She states that her right AKA site has healed well and she offers no complaints. She does note ongoing sacral wound; she also reports decreased appetite, intermittent chills, and
constipation accompanying her intermittent abdominal pain. Denies left lower extremity pain at rest, foot pain, worsening edema, or painful/taut skin.
Vascular surgical history:
11/24/2016- Right lower extremity arteriogram, attempted subintimal recanalization of right superficial femoral artery but unable to re-enter true lumen. Dr. Higuera
12/30/2016- Right superficial femoral artery endarterectomy with bovine pericardial patch angioplasty. Right superficial femoral artery to posterior tibial artery bypass with non-reversed greater saphenous vein. Dr. Higuera
01/15/2017- Debridement of necrotic skin and fat of the right lower extremity with washout and pulse lavage irrigation and placement of VAC sponge. Dr. Higuera
04/29/2017- Right lower extremity arteriogram, angioplasty of right bypass graft/proximal SFA stenosis with 4 mm, 5 mm and 6 mm angioplasty balloons. Placement of self-expanding Nitinol stent, 6 mm x 60 mm Zilver PTX stent in SFA into bypass graft.
6-Yi Angio-Seal closure left common femoral artery. Dr. Higuera
09/06/2017- Right lower extremity arteriogram, balloon angioplasty of right distal common femoral artery/proximal SFA with a 5 mm and 6 mm angioplasty balloon. Balloon angioplasty of right distal anastomotic stenosis and posterior tibial artery
stenosis with a 3 mm and 2.[address] Higuera
10/07/2021- Right lower extremity arteriogram. Balloon angioplasty of distal anastomotic stenosis with 3 mm angioplasty balloon.Placement of balloon mounted drug-eluting stent with 3 mm x 33 mm Xience drug-eluting stent. Dr. Higuera
07/08/2023- Right lower extremity arteriogram. Balloon angioplasty of bypassed distal anastomotic recurrent stenosis with 2 mm and [address] Higuera
06/29/2023- Right lower extremity arteriogram, balloon angioplasty of distal anastomotic/proximal posterior tibial artery recurrent stenosis with 3 mm angioplasty balloon, balloon angioplasty of proximal superficial femoral artery in-stent
restenosis (recurrent) with 4 mm drug-coated balloon. Dr. Higuera
08/03/2023- Aortogram and pelvic angiogram. Right lower extremity arteriogram. Dr. Higuera
08/10/2023- Right [id number] amputation. Dr. Higuera
Past Medical History
Past Medical History: HTN, Hypercholesterolemia, IDDM and Other (Chronic Kitchen catheter, obesity, sacral wound, anemia, Chronic cervical myelopathy)
Past Surgical History: Orthopedic (Spinal cord stimulator, T8/9 decompression diskectomy and fusion, [facility], July of 2023, Cervical laminectomy and fusion in 2021.) and Other (Right carotid endarterectomy, please see HPI for past
vascular surgeries, cataract extraction, bladder plication 2012)
Social History
Tobacco: Former Smoker
Alcohol: Occasional
Living: [facility]
Allergies / Home Medications
Allergy/AdvReac Type Severity Reaction Status Date / Time
No Known Allergies Allergy Verified 08/01/23 13:24
�Medication �Instructions �Recorded �Confirmed �Type
aspirin 81 mg tablet,delayed 81 mg PO DAILY Blood Clot 10/06/21 11/29/23 History
release (Kartik Low Dose Aspirin) Prevention/Tx
clopidogrel 75 mg tablet 75 mg PO DAILY Blood clot 10/06/21 11/29/23 History
prevention/tx
gabapentin 300 mg capsule 300 mg PO TID Neurological 10/22/22 11/29/23 History
Condition
acetaminophen 325 mg tablet 650 mg PO Q4HPRN PRN mild 07/14/23 11/28/23 History
(Tylenol) pain/fever
aluminum-mag hydroxide-simethicone 15 ml PO Q4HPRN PRN indigestion 07/14/23 11/29/23 History
200 mg-200 mg-20 mg/5 mL oral susp
(Mag-Al Plus)
atorvastatin 10 mg tablet 10 mg PO HS High Cholesterol 07/14/23 11/29/23 History
bisacodyl 10 mg rectal suppository 10 mg UT QPM Constipation 07/14/23 11/29/23 History
docusate sodium 100 mg capsule 100 mg PO TID Constipation 07/14/23 11/29/23 History
(Colace)
pantoprazole 40 mg tablet,delayed 40 mg PO DAILY Gastrointestinal 07/14/23 11/30/23 History
release (Protonix) Issue
sennosides 8.6 mg tablet (senna) 17.2 mg PO DAILY@1200 Constipation 07/14/23 11/30/23 History
Insulin Glargine In Device 8 units SC HS Diabetes 08/01/23 11/30/23 History
Lactobac no.2-Bifidobac no.1-S. 1 cap PO DAILY Supplement 08/01/23 11/30/23 History
thermo 112.5 billion cell capsule
(Visbiome)
alprazolam 0.25 mg tablet 0.25 mg PO Q8HPRN PRN anxiety 08/01/23 11/28/23 History
ascorbic acid (vitamin C) 500 mg 500 mg PO DAILY Supplement 08/01/23 11/29/23 History
tablet (Vitamin C)
bisacodyl 5 mg tablet,delayed 10 mg PO DAILYPRN PRN constipation 08/01/23 11/29/23 History
release (Dulcolax (bisacodyl))
ferrous sulfate 325 mg (65 mg 325 mg PO DAILY Supplement 08/01/23 08/01/23 History
iron) tablet
losartan 25 mg tablet 12.5 mg PO DAILY Blood Pressure 08/01/23 11/30/23 History
therapeutic multivitamin 1 tab PO DAILY Supplement 08/01/23 11/30/23 History
collagenase clostridium histo. 250 1 applic topical DAILY #30 grams 08/16/23 Rx
unit/gram topical ointment (Santyl)
miconazole nitrate 2 % topical 1 applic topical BID #85 grams 08/16/23 11/30/23 Rx
powder (Miconazorb AF)
metformin 500 mg tablet 500 mg PO DAILY 11/29/23 11/30/23 History
Review of Systems
-
History Source: Patient
Constitutional: Reports Chills
EENT: Reports No Symptoms
Respiratory: Reports No Symptoms
Cardiac: Reports No Symptoms
Vascular: Denies Leg Pain / Claudication
Abdomen/GI: Reports Abdominal Pain and Constipated
: Reports Other (Chronic urinary catheter)
Musculoskeletal: Reports Edema (Reports scant swelling at baseline currently notes it is no worse than usual)
Skin: Reports Other (Chronic sacral wound)
Physical Exam
Vital Signs
Temp Pulse Resp BP Pulse Ox
98.2 F 72 22 155/61 93
11/30/23 07:11 11/30/23 08:09 11/30/23 08:09 11/30/23 08:09 11/30/23 08:56
Lab Results
11/30/23 04:10
11/30/23 04:10
Troponin I < 0.012 ng/ml 11/27/23 09:41
Physical Exam
General: No Apparent Distress and Comfortable
HEENT: Normocephalic, Anicteric and Atraumatic
Cardiac: Negative JVD
GI: Soft, Non Tender and Non Distended
Musculoskeletal: Edema (Left extremity +1 pitting edema)
Skin: Warm, Dry and Other (Right lower extremity AKA site completely healed)
Neuro: AO x 3
Pulses: Left Dorsalis Pedis: +2 and Left Posterior Tibial: +2
Assessment / Plan
-
Assessment: 73-year-old female admitted for management of anemia, abdominal pain, and sacral wound. Vascular surgery was consulted in regards to continuation of DAPT in light of anemia of unclear source.
Plan:
Given patient's right AKA site has completely healed and left lower extremity with no evidence of significant peripheral disease can indefinitely discontinue Plavix.
Can hold aspirin 81 mg while determining source of anemia, however would reinitiate ASA once cleared medically
Plan reviewed with attending Dr. Pedrito Kitchen III, MD.
--- NOTE | 2023-11-30 09:53 | CON.GI ---
Addendum entered and electronically signed by Iván Echevarria MD 11/30/23 21:03:
I saw and examined the patient.
The PA's note was reviewed and I agree with the note.
Comment:
The pt is a 73 year old female with h/o NIDDM, CAD, HTN, hyperlipidemia, PVD, prior fem pop and recent right AKA in August, and CEA who p/w right sided abdominal pain with distention and found to have sepsis with UTI and sacral decub. Pt also
noted to have progressive drop in Hgb. CT showed left hip fracture with old hematoma from several weeks ago and no RP bleed, and planned for non surgical management. Baseline Hgb 8-9 now down to 7.1 since admission. She is on DAPT for PVD.
Impression / Rec:
1. Anemia - multifactorial. Likely has anemia of chronic illness, hematoma, fracture, etc. Reported dark stool from [place] but pt is on iron oral supplements. Hgb is near her baseline. No overt signs of GI bleed. Would defer endo eval until her
other issues such as femur fracture/sacral decub is resolved. Recommend GI f/u as OP for elective endo eval. Supportive mx. It appears both cardiology/vascular surgery do not require DAPT and plavix can be d/c'ed. Will s/o, pls call with
questions.
Original Note:
Consultation
-
Date/Time Consultation Requested: 11/29/23 1852
Date/Time Consultation Performed: 11/30/23 1000
Requesting Provider: Srinivasa Byrd MD
Performing Provider: ROBERTH Muñoz, Iván Echevarria MD
Reason for Consultation: anemia
Medical History
Chief Complaint / HPI
Chief Complaint: abdominal pain on admission
History of Present Illness:
Pt is a 73yo with hx NIDDM, CAD, HTN, hyperlipidemia, PVD, prior fem pop and recent right AKA in August, spinal stenosis with cervical and lumbar surgery, CEA with admission with right sided abdominal pain with distention, anorexia and chills
with concern for sepsis with UTI and sacral decub. Pt also noted with BOOKER with creat up to 3.2, hyponatremia, hyperkalemia and progressive drop in hbg. Imaging revealed left hip fracture possible old from several weeks ago with plan for non
surgical management. She completed CT 11/28 with no RP bleed but noted fracture with surrounding hematoma extending to thigh no active bleeding. Baseline hbg 8-9 since July. Now down to 7.1 since admission. Pt was on ASA and Plavix for PVD.
Also recent start of OP oral iron.
At this time patient admits to abdominal pain on admission. She was unsure about pattern if any pain post prandial, with movement or related to constipation. Pain will last a few minutes with sharp pain mid abd then stop. She also admits to
chronic constipation and has been on various bowel regiments at [facility]. She has also had nausea in past but not currently. She otherwise denies dysphagia, GERD, diarrhea, blood or black in stools. Pt denies EGD in past. Last colonoscopy was years
ago.
Past Medical History
Past Medical History: CAD, HTN, Hypercholesterolemia, NIDDM and Other (PVD, foot drop, CAD, spinal stenosis)
Past Surgical History: Orthopedic (cervical spine fracture with surgical repair 2016 and 2021, lumbar lami 2016 and 2019, spinal cord stimulator 2020), Urological (bladder plication 2012) and Other (fem -pop bypass, right CEA, cataract extraction,
right AKA)
Social History
Tobacco: Smoker
Alcohol: None
Drug: None
Living: [facility]dc
Employment: Retired
Family History
Family History: Other (no family hx colon CA or polyps)
Allergies / Home Medications
Allergy/AdvReac Type Severity Reaction Status Date / Time
No Known Allergies Allergy Verified 08/01/23 13:24
�Medication �Instructions �Recorded
aspirin 81 mg tablet,delayed 81 mg PO DAILY Blood Clot 10/06/21
release (Kartik Low Dose Aspirin) Prevention/Tx
clopidogrel 75 mg tablet 75 mg PO DAILY Blood clot 10/06/21
prevention/tx
gabapentin 300 mg capsule 300 mg PO TID Neurological 10/22/22
Condition
acetaminophen 325 mg tablet 650 mg PO Q4HPRN PRN mild 07/14/23
(Tylenol) pain/fever
aluminum-mag hydroxide-simethicone 15 ml PO Q4HPRN PRN indigestion 07/14/23
200 mg-200 mg-20 mg/5 mL oral susp
(Mag-Al Plus)
atorvastatin 10 mg tablet 10 mg PO HS High Cholesterol 07/14/23
bisacodyl 10 mg rectal suppository 10 mg NM QPM Constipation 07/14/23
docusate sodium 100 mg capsule 100 mg PO TID Constipation 07/14/23
(Colace)
pantoprazole 40 mg tablet,delayed 40 mg PO DAILY Gastrointestinal 07/14/23
release (Protonix) Issue
sennosides 8.6 mg tablet (senna) 17.2 mg PO DAILY@1200 Constipation 07/14/23
Insulin Glargine In Device 8 units SC HS Diabetes 08/01/23
Lactobac no.2-Bifidobac no.1-S. 1 cap PO DAILY Supplement 08/01/23
thermo 112.5 billion cell capsule
(Visbiome)
alprazolam 0.25 mg tablet 0.25 mg PO Q8HPRN PRN anxiety 08/01/23
ascorbic acid (vitamin C) 500 mg 500 mg PO DAILY Supplement 08/01/23
tablet (Vitamin C)
bisacodyl 5 mg tablet,delayed 10 mg PO DAILYPRN PRN constipation 08/01/23
release (Dulcolax (bisacodyl))
ferrous sulfate 325 mg (65 mg 325 mg PO DAILY Supplement 08/01/23
iron) tablet
losartan 25 mg tablet 12.5 mg PO DAILY Blood Pressure 08/01/23
therapeutic multivitamin 1 tab PO DAILY Supplement 08/01/23
collagenase clostridium histo. 250 1 applic topical DAILY #30 grams 08/16/23
unit/gram topical ointment (Santyl)
miconazole nitrate 2 % topical 1 applic topical BID #85 grams 08/16/23
powder (Miconazorb AF)
metformin 500 mg tablet 500 mg PO DAILY 11/29/23
Review of Systems
-
History Source: Patient
Constitutional: Reports No Symptoms
EENT: Reports No Symptoms
Respiratory: Reports No Symptoms
Abdomen/GI: Reports Abdominal Pain, Nausea and Constipated
: Reports Other (UTI on admission )
Musculoskeletal: Reports Other (minimal left hip pain )
Neurological: Reports Weakness
Endocrine: Reports No Symptoms
Hematologic/Lymphatic: Reports No Symptoms
Vital Signs
Temp Pulse Resp BP Pulse Ox
98.2 F 72 22 155/61 93
11/30/23 07:11 11/30/23 08:09 11/30/23 08:09 11/30/23 08:09 11/30/23 08:56
Physical Exam
Exam
General: Well Developed, Well Nourished and No Apparent Distress
HEENT: Normocephalic and Anicteric
Respiratory: Clear
Cardiac: Regular Rhythm
GI: Soft, Non Tender and Non Distended
Rectal: Other (dark brown heme + with large stool burden in rectum with limitation of rectal exam )
Musculoskeletal: No Clubbing, No Cyanosis and Other (right AKA with intact incision)
Skin: Warm and Dry
Neuro: Awake, Alert and AO x 3
Psych: Calm
Results
WBC 11.8 10^3/uL (4.8-10.8) H 11/30/23 04:10
Hgb 8.4 g/dL (12.0-16.0) L 11/30/23 04:10
Hct 26.5 % (37.0-47.0) L 11/30/23 04:10
MCV 78.9 fL (81.0-99.0) L 11/30/23 04:10
Plt Count 454 10^3/uL (130-400) H 11/30/23 04:10
Absolute Neuts (auto) 8.0 10^3/uL (1.4-6.5) H 11/30/23 04:10
PT 16.4 Sec (11.4-14.6) H 11/27/23 09:41
INR 1.34 11/27/23 09:41
APTT 32.7 Sec (23.4-35.0) 11/27/23 09:41
Sodium 132 mmol/L (135-145) L 11/30/23 04:10
Potassium 4.1 mmol/L (3.5-5.1) 11/30/23 04:10
Chloride 108 mmol/L (98-107) H 11/30/23 04:10
Carbon Dioxide 22 mmol/L (22-30) 11/30/23 04:10
BUN 25 mg/dl (7-17) H 11/30/23 04:10
Creatinine 0.8 mg/dL (0.6-1.0) 11/30/23 04:10
Calcium 9.6 mg/dl (8.4-10.2) 11/30/23 04:10
Total Bilirubin 0.8 mg/dl (0.2-1.3) 11/28/23 03:48
AST 15 U/L (14-36) 11/28/23 03:48
ALT < 10 U/L (0-35) 11/28/23 03:48
Alkaline Phosphatase 211 U/L (38-126) H 11/28/23 03:48
Diagnostic Image Results:
11/28 CT Abd/pelvis W Iv Cont
IMPRESSION: Small bilateral pleural effusions. Coronary artery calcifications are present. Please correlate with symptoms of and risk factors for coronary artery disease, with further workup as clinically appropriate.
Severely comminuted fracture of the proximal left femur. There is a surrounding mixed density collection compatible with hematoma, which also extends into the proximal left thigh. No gross evidence for active bleeding, although active bleeding is
usually better evaluated with a CT angiography examination.
There is no evidence for retroperitoneal hematoma. There is no evidence for rectus hematoma.
Moderate to severe diffuse subcutaneous edema.
Kitchen catheter is present within the bladder. The bladder wall appears slightly thickened with some stranding of the adjacent fat, and please correlate with any signs or symptoms that would suggest cystitis. There is a calcification projecting over
the right posterior bladder, which is likely a bladder calculus, when correlating with recent CT examination of November 28, 2023.
Mild dilation of the left renal calyces and left renal pelvis, with no convincing CT evidence for left ureteral calculus.
Cholelithiasis.
Bony degenerative changes. No CT evidence for additional fracture.
11/27/23 US limited
No ascites.
The urinary bladder is fairly well-distended, with a Kitchen catheter in place. Is the Kitchen catheter obstructed?
Prior GI Procedures:
EGD: none
Colonoscopy: years ago did not recall symptoms
Assessment / Plan
-
Pt is a 73yo with hx NIDDM, CAD, HTN, hyperlipidemia, PVD, prior fem pop and recent right AKA in August, spinal stenosis with cervical and lumbar surgery, CEA with admission with right sided abdominal pain with distention, anorexia and chills
with concern for sepsis with UTI and sacral decub. Pt also noted with BOOKER with creat up to 3.2, hyponatremia, hyperkalemia and progressive drop in hbg. Imaging revealed left hip fracture possible old from several weeks ago with plan for non
surgical management. She completed CT 11/28 with no RP bleed but noted fracture with surrounding hematoma extending to thigh no active bleeding. Baseline hbg 8-9 since July. Now down to 7.1 since admission. Pt was on ASA and Plavix for PVD.
Also recent start of OP oral iron.
-anemia acute on chronic -heme + stool, iron studies with chronic disease, B12/folate normal in October
-UTI/sepsis
-urinary retention
-BOOKER on admission
-left hip fracture -- non surgical management with hematoma
-constipation with large stool burden in exam 11/29
-hyponatremia- improved
-large sacral decub
other medical problems:
-PAD with recent R AKA in August
-CAD
-HTN
-spinal stenosis
-anxiety
-obesity
PLAN:
Etiology of anemia likely multi factorial with iron studies noted chronic disease, noted hematoma around hip fx, slow oozing with large sacral decub, dilutional with IVF on admission and heme + stools
discussed options for heme + anemia with patient including EGD/colon vs monitor hbg as not far from recent baseline and consider Plavix hold-- pt will consider
discussed with current UTI, BOOKER, hip issues can also consider OP testing when improved
add Protonix daily
consider SQ heparin hold add compression stocking if further drop
await vascular input with ability to keep Plavix on hold last dose prior to admission on 11/26
ASA also on hold if needed per vascular ok to resume from GI standpoint
agree with supportive care with close monitoring transfuse as needed
with constipation will change to Miralax BID with senna
given suppository and enema today with large stool burden on exam
will follow
-
-
Thank you for consultation and allowing me to participate in the patient's care. Please call the pharmacy operations coordinator GI physician during the after hours with any questions or concerns.
--- NOTE | 2023-11-30 10:21 | PHA.VAN.FU ---
Vancomycin Assessment / Plan
- Assessment
Renal Function: SCR Decreasing
WBC's are: Stable
In the past 24 hrs, patient has been: Afebrile
Concomitant Antimicrobials: cefepime
- Assessment - Therapeutic Drug Monitoring
Random Level: 15.3 - drawn ~16H after previous dose of 1250mg
[place] interval between prior dose and level this AM likely accounts for increased value of random level compared to yesterday
- Dosing Plan
Adjust Regimen to: Vanc 1250mg Q24H
Estimated CrCl does not appear to be accurately representing patient's vanc clearance at this time - may still be due to recovering BOOKER
- Monitoring Plan
No level(s) ordered at this time: consider levels in next few days
Monitoring Comments: may require further dose adjustment depending on renal trend
- Follow Up
Pharmacy will continue to follow.
Vancomycin Follow UP
- -
Patient Age: 73
Patient Sex: Female
Vancomycin Day #: 4
Indication: Bacteremia
Requesting Provider: Dr Colindres / Nicho
Pertinent Antimicrobial Allergies:
NKDA
Height / Weight:
Height 5 ft 7 in
Actual Weight 85.2 kg
Pertinent Past Medical History: BMI ~32, DM2, PAD, wheelchair bound
- Vital Signs / Lab Results
Temp Pulse Resp BP Pulse Ox
98.2 F 72 22 155/61 93
11/30/23 07:11 11/30/23 08:09 11/30/23 08:09 11/30/23 08:09 11/30/23 08:56
Lab Results - Hematology
11/28/23 11/29/23 11/29/23
03:48 09:49 20:07
WBC 19.1 H 12.0 H 11.9 H
11/30/23
04:10
WBC 11.8 H
Lab Results - Chemistry
11/27/23 11/28/23 11/29/23
17:32 03:48 09:49
BUN 57 H 51 H 33 H
Creatinine 2.7 H 2.2 H 1.0
Estimated Creat Clear 21 26 55
Albumin 2.1 L
11/30/23
04:10
BUN 25 H
Creatinine 0.8
Estimated Creat Clear 69
Albumin
11/27/23 11/27/23
12:27 17:32
Lactic Acid 2.2 H 1.5
Microbiology Results
11/27/23 12:27 Urine Culture - Final
Urine Enterococcus faecalis
Aerococcus Species
11/27/23 12:38 Wound Culture - Final
Sacral Staph aureus MRSA
Diptheroids
Gram Stain - Final
11/27/23 12:27 Blood Culture - Preliminary
Blood/Venous No Growth in 48 hours- Final report to follow
11/27/23 12:27 Blood Culture - Preliminary
Blood/Venous No Growth in 48 hours- Final report to follow
11/27/23 20:51 MRSA Screen - Final
Nose No Methicillin Resistant Staphylococcus aureus isolated.
Therapeutic Drug Monitoring
Random Vancomycin 15.3 ug/ml 11/30/23 04:10
[2023-11-30] MEDS: MIRALAX 17 GRAMS PO (11:29)
[2023-11-30] MEDS: SENOKOT 17.1999999999999993 MG PO (11:29)
[2023-11-30] MEDS: DULCOLAX 10 MG RECTAL (11:29)
--- NOTE | 2023-11-30 11:53 | CON.CAR ---
Addendum entered and electronically signed by Tobias Grant MD 11/30/23 13:09:
73 yo female with PAD and coronary artery calcification on CT is admitted with UTI, sacral ulcer, anemia. She denies CP, SOB. Exam with RRR, no murmurs. Tele: SR 60s-70s. EKG: NSR, LAFB, septal infarct.
We are asked on comment on DAPT given her anemia.
From cardiac perspective, she does not need DAPT. OK with ASA 81mg daily monotherapy.
Please call us back with additional questions.
Original Note:
Consultation
Consultation Request
Date/Time Consultation Requested: 11/10/23 0841
Date/Time Consultation Performed: 11/10/23 1130
Requesting Provider: Dr. Byrd
Performing Provider: Conchis LEPE for Dr. Grant
Reason for Consultation: patient with hematoma and on DAPT
Medical History
-
Chief Complaint: abdominal pain
History of Present Illness:
73 y/o female with significant PAD with history of RLE bypass, stenting, and most recently amputation, as well as carotid disease with hx CEA, hypertension, and obesity who is here for abdominal pain and was treated for UTI, as well as sacral ulcer.
She also has anemia. She was seen by nephro for BOOKER and hyponatremia, which is now improved. CT abd/pelvic showed left hip fx as well as hematoma- to be treated non-surgically. We are consulted since patient on DAPT and with anemia/hematoma.
Past Medical History
Past Medical History: HTN and Other (PAD, obesity, as above)
Social History
Tobacco: Former Smoker
Living: [facility]
Family History
Family History: Reviewed & Not Pertinent
Allergies / Home Medications
Allergy/AdvReac Type Severity Reaction Status Date / Time
No Known Allergies Allergy Verified 08/01/23 13:24
�Medication �Instructions �Recorded �Confirmed �Type
aspirin 81 mg tablet,delayed 81 mg PO DAILY Blood Clot 10/06/21 11/29/23 History
release (Kartik Low Dose Aspirin) Prevention/Tx
clopidogrel 75 mg tablet 75 mg PO DAILY Blood clot 10/06/21 11/29/23 History
prevention/tx
gabapentin 300 mg capsule 300 mg PO TID Neurological 10/22/22 11/29/23 History
Condition
acetaminophen 325 mg tablet 650 mg PO Q4HPRN PRN mild 07/14/23 11/28/23 History
(Tylenol) pain/fever
aluminum-mag hydroxide-simethicone 15 ml PO Q4HPRN PRN indigestion 07/14/23 11/29/23 History
200 mg-200 mg-20 mg/5 mL oral susp
(Mag-Al Plus)
atorvastatin 10 mg tablet 10 mg PO HS High Cholesterol 07/14/23 11/29/23 History
bisacodyl 10 mg rectal suppository 10 mg WA QPM Constipation 07/14/23 11/29/23 History
docusate sodium 100 mg capsule 100 mg PO TID Constipation 07/14/23 11/29/23 History
(Colace)
pantoprazole 40 mg tablet,delayed 40 mg PO DAILY Gastrointestinal 07/14/23 11/30/23 History
release (Protonix) Issue
sennosides 8.6 mg tablet (senna) 17.2 mg PO DAILY@1200 Constipation 07/14/23 11/30/23 History
Insulin Glargine In Device 8 units SC HS Diabetes 08/01/23 11/30/23 History
Lactobac no.2-Bifidobac no.1-S. 1 cap PO DAILY Supplement 08/01/23 11/30/23 History
thermo 112.5 billion cell capsule
(Visbiome)
alprazolam 0.25 mg tablet 0.25 mg PO Q8HPRN PRN anxiety 08/01/23 11/28/23 History
ascorbic acid (vitamin C) 500 mg 500 mg PO DAILY Supplement 08/01/23 11/29/23 History
tablet (Vitamin C)
bisacodyl 5 mg tablet,delayed 10 mg PO DAILYPRN PRN constipation 08/01/23 11/29/23 History
release (Dulcolax (bisacodyl))
ferrous sulfate 325 mg (65 mg 325 mg PO DAILY Supplement 08/01/23 08/01/23 History
iron) tablet
losartan 25 mg tablet 12.5 mg PO DAILY Blood Pressure 08/01/23 11/30/23 History
therapeutic multivitamin 1 tab PO DAILY Supplement 08/01/23 11/30/23 History
collagenase clostridium histo. 250 1 applic topical DAILY #30 grams 08/16/23 Rx
unit/gram topical ointment (Santyl)
miconazole nitrate 2 % topical 1 applic topical BID #85 grams 08/16/23 11/30/23 Rx
powder (Miconazorb AF)
metformin 500 mg tablet 500 mg PO DAILY 11/29/23 11/30/23 History
Review of Systems
-
History Source: Patient
All other systems: Negative unless noted
Abdomen/GI: Abdominal Pain
Physical Exam
Vital Signs
Temp Pulse Resp BP Pulse Ox
98.2 F 72 22 155/61 93
11/30/23 07:11 11/30/23 08:09 11/30/23 08:09 11/30/23 08:09 11/30/23 08:56
Lab Results
11/30/23 04:10
11/30/23 04:10
Troponin I < 0.012 ng/ml 11/27/23 09:41
Physical Exam
General: Well Developed, Well Nourished and No Apparent Distress
HEENT: Normocephalic and Anicteric
Respiratory: Other (coarse lung sounds- no wheezing or rales)
Cardiac: Regular Rhythm
Musculoskeletal: No Edema
Skin: Warm and Dry
Neuro: AO x 3
Psych: Calm
Impression / Plan
-
UTI:
-has been treated with abx with management per primary
Sacral ulcer:
-per primary
Hip fx:
-non-surgical management per orthopedics
Hematoma:
-hematoma near area of hip fracture
-DAPT held
-from cardiac perspective does not need DAPT, but with PAD, should resume ASA when safe
Anemia:
-heme is consulted
-DAPT held
-from cardiac perspective does not need DAPT, but with PAD, should resume ASA when safe
Coronary artery calcifications:
-no CP or SOB
-stress test 2020 without ischemic
-on statin, resume ASA when able
PAD:
-significant
-per vascular
Data Reviewed
-
EKG: Tracing Personally Visualized and interpreted (NORMAL SINUS RHYTHM LEFT ANTERIOR FASCICULAR BLOCK MINIMAL VOLTAGE CRITERIA FOR LVH- no acute change from previous to my review.)
CT Scan: Report Reviewed by me (CT scan: Small bilateral pleural effusions. Coronary artery calcifications are present. Severely comminuted fracture of the proximal left femur. There is a surrounding mixed density collection compatible with
hematoma, which also extends into the proximal left thigh.)
Medical Tests (Nuc Med, Echo etc): Report Reviewed by me (Echocardiogram 05/22/20 ejection fraction 60-65%. Mild concentric LVH. Aortic valve sclerosis without stenosis.) and Other (she had a nuclear stress test in 2020 with no evidence of ischemia,
and normal LVEF 65%. )
Labs: Labs Reviewed by me
[2023-11-30 11:55] LABS: Glucose - Point of Care 159 mg/dl (70-99)
[2023-11-30] MEDS: PROTONIX 40 MG PO (12:37)
[2023-11-30] MEDS: NOVOLOG FLEXPEN-LOW RESISTANCE 1 UNITS SC (13:20)
--- NOTE | 2023-11-30 13:24 | W.PN.ID1 ---
Date of Service
Date of Service: November 30, 2023
Today's Communication
See below.
Assessment / Plan
# Enterococcus, Aerococcus CAUTI
- Continue Vanco d4
-At time of dc, transition to Augmentin 875mg po bid through 12/06/23
# Sacral deep tissue injury
- No CT evidence of osteo
- Continue Vancomycin d4
- at time of discharge, transition to po doxycycline 100mg bid through 12/10/23.
# Fever resolved
# Leukocytosis trending down
#Additional Past Medical History:
NIDDM
Neuropathy
CAD
HTN
Hypercholesterolemia
Chronic back pain s/p spinal stimulator implant (2020)
PAD s/p R AKA (08/2023)
R CEA (2012)
Lumbar laminectomy (2016)
C-spine fracture surgery 2021
bladder plication (2012)
Chief Complaint
-: UTI and Other (sacral wound)
Subjective / Review of Systems
No complaints today.
Vital Signs / Physical Exam
Vital Signs
Vital Signs
Temp Pulse Resp BP Pulse Ox
97.9 F 72 22 155/61 93
11/30/23 11:30 11/30/23 08:09 11/30/23 08:09 11/30/23 08:09 11/30/23 08:56
Physical Exam
Constitutional: No Acute Distress
Pulmonary: Clear
Gastrointestinal: Soft, Non Tender and Non Distended
Genito-Urinary: Kitchen and Clear Urine
Neurological: AO x 3
Objective Data
Lab Data
Lab Results
11/30/23 04:10
11/30/23 04:10
PT 16.4 Sec (11.4-14.6) H 11/27/23 09:41
INR 1.34 11/27/23 09:41
APTT 32.7 Sec (23.4-35.0) 11/27/23 09:41
Estimated Creat Clear 69 ml/min 11/30/23 04:10
Lactic Acid 1.5 mmol/L (0.7-2.0) 11/27/23 17:32
Total Bilirubin 0.8 mg/dl (0.2-1.3) 11/28/23 03:48
AST 15 U/L (14-36) 11/28/23 03:48
ALT < 10 U/L (0-35) 11/28/23 03:48
Alkaline Phosphatase 211 U/L (38-126) H 11/28/23 03:48
Most recent labs reviewed.
Micro Results:
11/27/23 12:27 Blood Culture - Preliminary
Blood/Venous No Growth in 72 hours- Final report to follow
11/27/23 12:27 Blood Culture - Preliminary
Blood/Venous No Growth in 72 hours- Final report to follow
11/27/23 12:27 Urine Culture - Final
Urine Enterococcus faecalis
Aerococcus Species
11/27/23 12:38 Wound Culture - Final
Sacral Staph aureus MRSA
Diptheroids
Gram Stain - Final
11/27/23 20:51 MRSA Screen - Final
Nose No Methicillin Resistant Staphylococcus aureus isolated.
11/27/23 12:27 Influenza Types A & B (SHERIN) - Final
Nasal Swab Negative for Influenza A & B, NAAT
Negative results must be combined with clinical observations
and patient history.
Nucleic Acid Amplification test (NAAT)performed on the
[employer] platform.
11/27/23 CXR: Vague increase in opacity in the posterior left lung base, question atelectasis versus pneumonia
11/27/23 Abd US: No ascites. The urinary bladder is fairly well-distended, with a Kitchen catheter in place.�
11/28/23 CT a/p w/o contrast: Soft tissue stranding overlying the coccyx, consistent with the patient's history of pressure sore. No associated abscess formation, and no CT evidence of osteomyelitis. Comminuted fracture of the proximal left femur,
which has a relatively acute appearance. Please correlate with history. Mild diffuse soft tissue anasarca.
11/28/23 Left hip XRAY: There is an acute comminuted oblique intertrochanteric fracture of the left femur with approximately 1 cm impaction of the distal fracture fragment.
[2023-11-30] MEDS: VANCOCIN 275 MG IV (14:02)
[2023-11-30 17:01] LABS: Glucose - Point of Care 218 mg/dl (70-99)
[2023-11-30] MEDS: NOVOLOG FLEXPEN-LOW RESISTANCE 2 UNITS SC (17:14)
[2023-11-30] MEDS: LIPITOR 10 MG PO (20:56)
[2023-11-30] MEDS: MIRALAX PO (21:15)
[2023-11-30 22:01] LABS: Glucose - Point of Care 197 mg/dl (70-99)
[2023-12-01] VITALS (9 sets, daily range): BP systolic 113–142; BP diastolic 44–72
--- NOTE | 2023-12-01 00:06 | PTCARENOTE ---
Pt received from previous shift. Pt AOA, Pt C/O tiredness. pt had large loose Bm at start of shift. Miralax held by RN r/t recent loose BM at start of shift. Pt took other PM meds well with water. Pt provided hygiene, Sacral wound dressing saturated
with stool r/t loose BM. Wound care provided per wound care orders. Turns maintained on Pt. No acute events at this time. Please see nursing shift assessment for full head to toe.
[2023-12-01 04:53] LABS: Hematocrit 22.7 % (37.0-47.0); Hemoglobin 7.3 g/dL (12.0-16.0); Mean Corp Hgb Conc. 32.2 g/dL (33.0-37.0); Mean Corpuscular Hgb 25.1 pg (27.0-31.0); Mean Platelet Volume 8.5 fL (7.4-10.4); Platelet Count 435 10^3/uL (130-400); Red Blood Cell Count 2.91 10^6/uL (4.20-5.40); Red Cell Dist. Width 17.8 % (11.5-14.5); White Blood Cell Count 11.8 10^3/uL (4.8-10.8)
[2023-12-01] MEDS: VANCOCIN 275 MG IV (06:28)
[2023-12-01 08:14] LABS: Glucose - Point of Care 142 mg/dl (70-99)
[2023-12-01] MEDS: NOVOLOG FLEXPEN-LOW RESISTANCE SC (08:16)
--- NOTE | 2023-12-01 09:27 | W.PN.ID1 ---
Date of Service
Date of Service: December 01, 2023
Today's Communication
Transition Vancomycin to po amoxicillin and doxycycline. See below.
ID will sign off.
Assessment / Plan
# Enterococcus, Aerococcus CAUTI
-Transition Vanco d5 to amoxicillin 500mg po tid through 12/06/23
# Sacral deep tissue injury
- No CT evidence of osteo
- Transition Vanco d5 to po doxycycline 100mg bid through 12/10/23.
# Fever resolved
# Leukocytosis trending down
ID will sign off.
#Additional Past Medical History:
NIDDM
Neuropathy
CAD
HTN
Hypercholesterolemia
Chronic back pain s/p spinal stimulator implant (2020)
PAD s/p R AKA (08/2023)
R CEA (2012)
Lumbar laminectomy (2016)
C-spine fracture surgery 2021
bladder plication (2012)
Chief Complaint
-: UTI and Other (sacral wound)
Subjective / Review of Systems
No complaints.
Vital Signs / Physical Exam
Vital Signs
Vital Signs
Temp Pulse Resp BP Pulse Ox
98.3 F 68 18 131/47 94
12/01/23 07:56 12/01/23 08:00 12/01/23 08:00 12/01/23 08:00 12/01/23 08:36
Physical Exam
Constitutional: No Acute Distress
Cardiovascular: Regular Rate and S1/S2
Pulmonary: Clear
Gastrointestinal: Soft, Non Tender and Non Distended
Genito-Urinary: Kitchen and Clear Urine
Objective Data
Lab Data
Lab Results
12/01/23 04:29
11/30/23 04:10
PT 16.4 Sec (11.4-14.6) H 11/27/23 09:41
INR 1.34 11/27/23 09:41
APTT 32.7 Sec (23.4-35.0) 11/27/23 09:41
Estimated Creat Clear 69 ml/min 11/30/23 04:10
Lactic Acid 1.5 mmol/L (0.7-2.0) 11/27/23 17:32
Total Bilirubin 0.8 mg/dl (0.2-1.3) 11/28/23 03:48
AST 15 U/L (14-36) 11/28/23 03:48
ALT < 10 U/L (0-35) 11/28/23 03:48
Alkaline Phosphatase 211 U/L (38-126) H 11/28/23 03:48
Most recent labs reviewed.
Micro Results:
11/27/23 12:27 Blood Culture - Preliminary
Blood/Venous No Growth in 72 hours- Final report to follow
11/27/23 12:27 Blood Culture - Preliminary
Blood/Venous No Growth in 72 hours- Final report to follow
11/27/23 12:27 Urine Culture - Final
Urine Enterococcus faecalis
Aerococcus Species
11/27/23 12:38 Wound Culture - Final
Sacral Staph aureus MRSA
Diptheroids
Gram Stain - Final
11/27/23 20:51 MRSA Screen - Final
Nose No Methicillin Resistant Staphylococcus aureus isolated.
11/27/23 12:27 Influenza Types A & B (SHERIN) - Final
Nasal Swab Negative for Influenza A & B, NAAT
Negative results must be combined with clinical observations
and patient history.
Nucleic Acid Amplification test (NAAT)performed on the
[employer] platform.
11/27/23 CXR: Vague increase in opacity in the posterior left lung base, question atelectasis versus pneumonia
11/27/23 Abd US: No ascites. The urinary bladder is fairly well-distended, with a Kitchen catheter in place.�
11/28/23 CT a/p w/o contrast: Soft tissue stranding overlying the coccyx, consistent with the patient's history of pressure sore. No associated abscess formation, and no CT evidence of osteomyelitis. Comminuted fracture of the proximal left femur,
which has a relatively acute appearance. Please correlate with history. Mild diffuse soft tissue anasarca.
11/28/23 Left hip XRAY: There is an acute comminuted oblique intertrochanteric fracture of the left femur with approximately 1 cm impaction of the distal fracture fragment.
[2023-12-01] MEDS: DAKIN'S SOLUTION 0.125% 1/4 STRENGTH 473 ML TOPICAL (09:35)
[2023-12-01] MEDS: DESENEX/MITRAZOL/ZEASORB 1 APPLIC TOPICAL (09:37)
[2023-12-01] MEDS: HEPARIN 5000 UNITS SC ×2 (09:38→16:51)
[2023-12-01] MEDS: MIRALAX 17 GRAMS PO (09:40)
[2023-12-01] MEDS: PROTONIX 40 MG PO (09:40)
[2023-12-01] MEDS: NEURONTIN 300 MG PO ×2 (09:40→16:51)
[2023-12-01] MEDS: VISBIOME 1 CAP PO (09:41)
[2023-12-01] MEDS: THERAGRAN 1 TABLET PO (09:41)
[2023-12-01] MEDS: VITAMIN C 500 MG PO (09:42)
[2023-12-01 10:26] LABS: Absolute Neutrophils -Man Diff 6.8 10^3/uL (1.4-6.5); Band Neutrophils 0 % (0-3); Eosinophils 4 % (0-6); Lymphocytes 20 % (20-51); Metamyelocytes 4 % (-); Monocytes 11 % (2-9); Myelocytes 3 % (-); Normal RBC Morphology Yes; Platelets Checked Yes; Segmented Neutrophils 58 % (42-75); Total Cells Counted 100
--- NOTE | 2023-12-01 11:21 | CON.ONC ---
Impression
Impression
Anemia iron deficiency superimposed on chronic disease
Patient with elevated bilirubin and heme positive stool suggesting possible upper GI bleed
Hematoma trauma to the head and left hip
UTI/sepsis with urinary retention Kitchen catheter in place
BOOKER
Decubitus ulcer
Hypertension
CAD
Spinal stenosis
Peripheral vascular disease with AKA
Plan
Plan
GI evaluation for bleeding ongoing
Would hold Plavix/ASA
Parenteral iron would be appropriate once urinary tract infection/sepsis resolves
Continue transfusion support for hemoglobin<7.0
Monitor CBC
Monitor for consumptive coagulopathy
Patient History
History of Present Illness
73yo with hx NIDDM, CAD, HTN, hyperlipidemia, PVD, prior fem pop and recent right AKA in August, spinal stenosis with cervical and lumbar surgery, CEA with admission with right sided abdominal pain with distention, anorexia and chills with
concern for sepsis with UTI and sacral decub. Pt also noted with BOOKER with creat up to 3.2, hyponatremia, hyperkalemia and progressive drop in hbg. Imaging revealed left hip fracture possible old from several weeks ago with plan for non surgical
management. She completed CT 11/28 with no RP bleed but noted fracture with surrounding hematoma extending to thigh no active bleeding. Baseline hbg 8-9 since July. Now down to 7.1 since admission. Pt was on ASA and Plavix for PVD. Also
recent start of OP oral iron. She also admits to chronic constipation and has been on various bowel regiments at [facility]. She has also had nausea in past but not currently. She otherwise denies dysphagia, GERD, diarrhea, blood or black in stools.
Pt denies EGD in past. Last colonoscopy was years ago.
Past-Medical/Surgical History
Past Medical History
Past Medical History: CAD, HTN, Hypercholesterolemia, NIDDM and Other PVD, foot drop, CAD, spinal stenosis
Past Surgical History: Orthopedic cervical spine fracture with surgical repair 2016 and 2021, lumbar lami 2016 and 2019, spinal cord stimulator 202, Urological (bladder plication 2012) fem -pop bypass, right CEA, , right AKA
Social History
Tobacco: Smoker
Alcohol: None
Drug: None
Living: Assisted
Employment: Retired
Family History
Family History: Other (no family hx colon CA or polyps)
Patient Medication
�Medication �Instructions �Recorded �Confirmed �Last Taken �Type
aspirin 81 mg tablet,delayed 81 mg PO DAILY Blood Clot 10/06/21 11/29/23 08/01/23 07:25 History
release (Kartik Low Dose Aspirin) Prevention/Tx
clopidogrel 75 mg tablet 75 mg PO DAILY Blood clot 10/06/21 11/29/23 08/01/23 07:25 History
prevention/tx
gabapentin 300 mg capsule 300 mg PO TID Neurological 10/22/22 11/29/23 08/01/23 07:25 History
Condition
acetaminophen 325 mg tablet 650 mg PO Q4HPRN PRN mild 07/14/23 11/28/23 07/14/23 19:38 History
(Tylenol) pain/fever
aluminum-mag hydroxide-simethicone 15 ml PO Q4HPRN PRN indigestion 07/14/23 11/29/23 Unknown History
200 mg-200 mg-20 mg/5 mL oral susp
(Mag-Al Plus)
atorvastatin 10 mg tablet 10 mg PO HS High Cholesterol 07/14/23 11/29/23 07/31/23 21:18 History
bisacodyl 10 mg rectal suppository 10 mg DC QPM Constipation 07/14/23 11/29/23 07/31/23 17:06 History
docusate sodium 100 mg capsule 100 mg PO TID Constipation 07/14/23 11/29/23 08/01/23 07:25 History
(Colace)
pantoprazole 40 mg tablet,delayed 40 mg PO DAILY Gastrointestinal 07/14/23 11/30/23 08/01/23 07:25 History
release (Protonix) Issue
sennosides 8.6 mg tablet (senna) 17.2 mg PO DAILY@1200 Constipation 07/14/23 11/30/23 08/01/23 12:40 History
Insulin Glargine In Device 8 units SC HS Diabetes 08/01/23 11/30/23 07/31/23 21:22 History
Lactobac no.2-Bifidobac no.1-S. 1 cap PO DAILY Supplement 08/01/23 11/30/23 08/01/23 07:25 History
thermo 112.5 billion cell capsule
(Visbiome)
alprazolam 0.25 mg tablet 0.25 mg PO Q8HPRN PRN anxiety 08/01/23 11/28/23 07/31/23 21:21 History
ascorbic acid (vitamin C) 500 mg 500 mg PO DAILY Supplement 08/01/23 11/29/23 08/01/23 07:25 History
tablet (Vitamin C)
bisacodyl 5 mg tablet,delayed 10 mg PO DAILYPRN PRN constipation 08/01/23 11/29/23 07/19/23 12:19 History
release (Dulcolax (bisacodyl))
ferrous sulfate 325 mg (65 mg 325 mg PO DAILY Supplement 08/01/23 08/01/23 08/01/23 07:25 History
iron) tablet
losartan 25 mg tablet 12.5 mg PO DAILY Blood Pressure 08/01/23 11/30/23 07/27/23 08:20 History
therapeutic multivitamin 1 tab PO DAILY Supplement 08/01/23 11/30/23 08/01/23 07:25 History
collagenase clostridium histo. 250 1 applic topical DAILY #30 grams 08/16/23 Unknown Rx
unit/gram topical ointment (Santyl)
miconazole nitrate 2 % topical 1 applic topical BID #85 grams 08/16/23 11/30/23 Unknown Rx
powder (Miconazorb AF)
metformin 500 mg tablet 500 mg PO DAILY 11/29/23 11/30/23 Unknown History
Active Medications
Generic Name Dose Route Start Last Admin
Trade Name Freq PRN Reason Stop Dose Admin
Acetaminophen 650 mg 11/27/23 20:25 11/29/23 18:23
Acetaminophen 325 Mg Tablet PO 12/25/23 20:24 650 mg
Q4HPRN PRN Administration
mild pain/ fever>100.5F
Al Hydrox/Mg Hydrox/Simethicone 15 ml 11/29/23 18:46
Mag/Al/Simethicone Suspension 30 Ml Cup PO 12/27/23 18:45
Q4HPRN PRN
indigestion
Alprazolam 0.25 mg 11/29/23 18:46
Alprazolam 0.25 Mg Tablet PO 12/27/23 18:45
Q8HPRN PRN
anxiety
Amoxicillin 500 mg 12/01/23 14:00
Amoxicillin 500 Mg Capsule PO 12/06/23 22:01
Q8H QING
Ascorbic Acid 500 mg 11/30/23 08:00 12/01/23 09:42
Ascorbic Acid 500 Mg Tablet PO 12/28/23 07:59 500 mg
DAILY QING Administration
Atorvastatin Calcium 10 mg 11/29/23 22:00 11/30/23 20:56
Atorvastatin (Lipitor) 10 Mg Tablet PO 12/27/23 21:59 10 mg
HS QING Administration
Bisacodyl 10 mg 11/29/23 18:46
Bisacodyl 5 Mg Enteric Coated Tablet PO 12/27/23 18:45
DAILYPRN PRN
constipation
Bisacodyl 10 mg 11/30/23 18:00 11/30/23 17:26
Bisacodyl 10 Mg Rectal Suppository RECTAL 12/28/23 17:59 Not Given
QPM QING
Dextrose 12.5 grams 11/27/23 16:41
Dextrose 50% (0.5 Grams/Ml) 50 Ml Syringe IV 12/25/23 16:40
[id number] PRN
hypoglycemia
Protocol
Doxycycline Hyclate 100 mg 12/01/23 20:00
Doxycycline 100 Mg Capsule PO 12/10/23 20:01
Q12 QING
Gabapentin 300 mg 11/29/23 16:00 12/01/23 09:40
Gabapentin 300 Mg Capsule PO 12/27/23 15:59 300 mg
TID QING Administration
Glucagon 1 mg 11/27/23 16:41
Glucagon 1 Mg Vial IM 12/25/23 16:40
PRN PRN
hypoglycemia
Protocol
Heparin Sodium 5,000 units 11/28/23 16:00 12/01/23 09:38
Heparin 5,000 Units/Ml 1 Ml Vial SC 12/26/23 15:59 5,000 units
Q8 QING Administration
Insulin Aspart 0 units 11/27/23 16:41 12/01/23 08:16
Insulin Aspart Low Resistance 300 Units/3 Ml Pen.Injctr SC 12/25/23 16:40 Not Given
AC QING
Protocol
Lactobacillus/Bifidobacterium 1 cap 11/30/23 08:00 12/01/23 09:41
Lactobac/Bifidobac (Visbiome) PO 12/28/23 07:59 1 cap
DAILY QING Administration
Losartan Potassium 12.5 mg 11/29/23 11:00 11/29/23 11:56
Losartan 25 Mg Tablet PO 12/27/23 10:59 12.5 mg
DAILY QING Administration
Miconazole Nitrate 0 applic 11/28/23 12:26 11/29/23 20:35
Miconazole Powder Bottle TOPICAL 12/26/23 12:25 1 applic
BIDPRN PRN Administration
yeasty red skin
Miconazole Nitrate 0 applic 11/29/23 20:00 12/01/23 09:37
Miconazole Powder Bottle TOPICAL 12/27/23 19:59 1 applic
BID QING Administration
Multivitamins Therapeutic 1 tablet 11/30/23 08:00 12/01/23 09:41
Multivitamin Tablet PO 12/28/23 07:59 1 tablet
DAILY QING Administration
Pantoprazole Sodium 40 mg 11/30/23 12:00 12/01/23 09:40
Pantoprazole 40 Mg Delayed Release Tablet PO 12/28/23 11:59 40 mg
DAILY QING Administration
Polyethylene Glycol 17 grams 11/30/23 11:00 12/01/23 09:40
Polyethylene Glycol Powder 17 Grams Packet PO 12/28/23 10:59 17 grams
BID QING Administration
Sennosides 17.2 mg 11/30/23 12:00 11/30/23 11:29
Sennosides (Senokot) 8.6 Mg Tablet PO 12/28/23 11:59 17.2 mg
DAILY@1200 QING Administration
Sodium Chloride 0 flush 11/27/23 17:00
Sodium Chloride 0.9% (Flush) Syringe IV 12/25/23 16:59
PER PROTOCOL QING
Sodium Hypochlorite 0 ml 11/28/23 20:00 12/01/23 09:35
Dakin's Solution 0.125% (1/4 Strength) 473 Ml Bottle TOPICAL 12/26/23 19:59 473 ml
BID QING Administration
Review of Systems
-
12 point review of systems fails to elicit additional complaints other than those reviewed in the HPI
Physical Exam
-
Exam
General: Well Developed, Well Nourished and No Apparent Distress
HEENT: Normocephalic and Anicteric
Respiratory: Clear
Cardiac: Regular Rhythm
GI: Soft, Non Tender and Non Distended
Musculoskeletal: No Clubbing, No Cyanosis and Other (right AKA with intact incision)
Skin: Warm and Dry
Neuro: Awake, Alert and AO x 3
Psych: Calm
Labs
Lab Results
WBC 11.8 10^3/uL (4.8-10.8) H 12/01/23 04:29
RBC 2.91 10^6/uL (4.20-5.40) L 12/01/23 04:29
Hgb 7.3 g/dL (12.0-16.0) L 12/01/23 04:29
Hct 22.7 % (37.0-47.0) L 12/01/23 04:29
MCV 78.0 fL (81.0-99.0) L 12/01/23 04:29
MCH 25.1 pg (27.0-31.0) L 12/01/23 04:29
MCHC 32.2 g/dL (33.0-37.0) L 12/01/23 04:29
RDW 17.8 % (11.5-14.5) H 12/01/23 04:29
Plt Count 435 10^3/uL (130-400) H 12/01/23 04:29
MPV 8.5 fL (7.4-10.4) 12/01/23 04:29
Abs Immat Gran (auto) 10^3/uL (0-0.05) 12/01/23 04:29
Absolute Neuts (auto) 10^3/uL (1.4-6.5) 12/01/23 04:29
Absolute Lymphs (auto) 10^3/uL (1.2-3.4) 12/01/23 04:29
Absolute Monos (auto) 10^3/uL (0.1-0.6) 12/01/23 04:29
Absolute Eos (auto) 10^3/uL (0-0.7) 12/01/23 04:29
Absolute Basos (auto) 10^3/uL (0-0.2) 12/01/23 04:29
Immature Gran % % (0-0.5) 12/01/23 04:
Neutrophils % % (42.2-75.2) 12/01/23 04:29
Lymphocytes % % (20.5-51.1) 12/01/23 04:29
Monocytes % % (1.7-9.3) 12/01/23 04:29
Eosinophils % % (0-6) 12/01/23 04:29
Basophils % % (0-2) 12/01/23 04:29
Creatinine 0.8 mg/dL (0.6-1.0) 11/30/23 04:10
Vital Signs
Vital Signs
Temp Pulse Resp BP Pulse Ox
98.7 F 78 22 135/48 97
12/01/23 11:12 12/01/23 10:00 12/01/23 10:00 12/01/23 10:00 12/01/23 11:12
[2023-12-01] MEDS: SENOKOT 17.1999999999999993 MG PO (11:29)
[2023-12-01 12:23] LABS: Glucose - Point of Care 193 mg/dl (70-99)
[2023-12-01] MEDS: NOVOLOG FLEXPEN-LOW RESISTANCE 1 UNITS SC (12:59)
--- NOTE | 2023-12-01 14:19 | CM ---
Patient from [facility] with Hx right AKA without prosthesis, with Dx septic shock, CAUTI, Acute left proximal femoral fracture secondary to a fall, anemia, Large sacral decubital wound. Room air. Seen by wound care nurse. PT & OT recommend
skilled rehab.
Met with patient and ; discussed patient's return to [facility] today- both patient and agree. IMM completed. says patient still on bed hold with the SNF until tomorrow. Patient crying and upset, admitting to feeling
depressed and hopeless about her situation, saying she wishes she could stay here at instead of returning to [facility]. Patient and planning on [facility] for prison care and is working with the SNF regarding LTC
paperwork.
Spoke with Ela, Ad[facility]; they are able to accept the patient back today. The for report [phone], fax [phone]. Ela was made aware that the patient is on a [facility] air bed here, per [facility] nurse, and something
similar is recommended at .
Plan [facility] today by ambulance.
--- NOTE | 2023-12-01 14:46 | W.PN.HOSP.TC ---
Today's Communication/Plan
-
Discharge today
Assessment / Plan
Assessment / Plan
Physical Exam
General: Not in acute distress
HEENT: Normocephalic, Moist mucous membranes
Respiratory: Clear
Cardiac: S1/S2 and Regular Rhythm
GI: Soft, Non Tender and Non Distended. Positive bowel sounds.
Genito-urinary: Kitchen
Musculoskeletal: No Cyanosis, No Edema and Other (Right above-knee amputation)
Skin: Warm and Dry
Neuro: AAO x 3
Psych: Calm

#Septic shock
#Enterococcus and Aerococcus CAUTI
- differential diagnosis includes catheter associated urinary tract infection versus sacral decubital wound infection versus other. Continue monitoring in IMU. Blood pressure improved with IV fluids and Levophed.
Continue broad-spectrum antibiotics with Vancomycin and at time of discharge, transition to Amoxicillin 500mg po tid through 12/06/23 and po Doxycycline 100mg bid through 12/10/23
Lactic acidosis due to sepsis.
Sacral wound growing MRSA, Diptheroids, gram stain was polymicrobial
ID consulted, recommendations appreciated
#Acute left proximal femoral fracture on CT Imaging secondary to a fall ~1 week (prior to presentation to hospital) out of wheelchair; orthopedics consulted, recommendations appreciated: via [employer], Dr Mahmood (on November 28, 2023) mentioned that
may be a non-operative candidate as high risk or infection with placement of hardware and also a non-ambulator.
#BOOKER -likely due to ATN from sepsis, shock, etc. Nephrology consulted. Plan to exchange Kitchen catheter. Bladder is distended on ultrasound despite Kitchen catheter.
#Hyponatremia - sodium was 122 -- but improved. Likely hypovolemic. Check urine studies. Nephrology consulted.
#Hyperkalemia - RESOLVED - suspect due to BOOKER.
#Acute on chronic anemia
#Anemia iron deficiency superimposed on anemia of chronic disease
-Consulted hematology, recommendations appreciated
-Hematology recommended holding Aspirin and Plavix at this time and that parenteral iron would be appropriate once urinary tract infection/sepsis resolves
-Hematology also recommended monitoring for consumptive coagulopathy
-On November 30, 2023 patient clearly stated to me (Dr. Byrd) that she does not want to get any potential blood transfusion even if her Hgb drops to less than 7.
-From cardiac perspective, patient does not need to be on DAPT--->can continue Aspirin monotherapy instead of DAPT
-Per Vascular Surgery, can indefinitely discontinue Plavix and can hold aspirin 81 mg while determining source of anemia, however would reinitiate Aspirin once cleared medically
-GI consulted, recommendations appreciated
-Follow-up with GI outpatient
Constipation
-Bowel regimen
-GI consulted, recommendations appreciated
#Large sacral decubital wound - consult surgery for possible debridement.
#Peripheral Artery Disease status post right above-knee amputation - Does not have a prosthesis. Is wheelchair and bedbound.
DM2 without hyperglycemia -use low resistance insulin scale for now.
Essential hypertension -hold antihypertensives for shock.
CAD and Coronary artery calcifications - stable.
Chronic urinary retention -chronic Kitchen catheter as above.
Chronic cervical myelopathy
Hyperlipidemia
Anxiety disorder
Morbid obesity due to excess calories
Spinal Stenosis
Wheelchair and bedbound status
Right upper posterior near buttocks red/purple ecchymotic area suspect stage 1 vs evolving DTI. L lateral distal knee small deep dermal stage 2 pressure injury vs from trauma?
DNR
DVT Prophylaxis: Heparin subq (cannot do SCDs due to hip fracture)
On November 30, 2023, I spoke to the patient about the possible need for blood transfusion if her Hgb drops to less than 7, and the consequences (including clinical deterioration and ) were she not to get a blood transfusion if her Hgb dropped to
less than 7, and she clearly stated she does not want to get any blood transfusion in any case.
More than 30 minutes spent in discharge including
Final examination of the patient
Summarizing hospital stay
Instructions for continuing care to all relevant caregivers
Preparation of discharge records, prescriptions, and referral forms
Total time spent (in minutes): 43
Anticipated Discharge: Today
Subjective/Interval History
-
Date of Service: December 01, 2023
Patient was seen and examined. She reported no new symptoms or complaints, she is anxious about going back to her SNF.
Objective Data
-
Labs:
Laboratory Results
12/01/23
04:29
WBC 11.8 H
Hgb 7.3 L
Hct 22.7 L
Plt Count 435 H
Vital Signs:
Vital Signs
Temp Pulse Resp BP Pulse Ox
98.7 F 71 23 142/60 95
12/01/23 11:12 12/01/23 12:00 12/01/23 12:00 12/01/23 12:00 12/01/23 12:00
I&O
11/30/23 12/01/23 12/02/23
06:59 06:59 06:59
Intake Total 480 / 480 1260 / 1260 300 / 300
Output Total 1625 / 1625 3000 / 3000
Balance -1145 / -1145 -1740 / -1740 300 / 300
[2023-12-01] MEDS: AMOXIL 500 MG PO (15:18)
--- NOTE | 2023-12-01 16:11 | W.DS.TRANS ---
DC Summary - Hospital Social Worker
-
Discharge Instructions:
Discharge Diagnosis/Procedures #Septic shock
#Enterococcus and Aerococcus CAUTI
#Acute left proximal femoral fracture on CT
Imaging secondary to a fall ~1 week (prior to
presentation to hospital) out of wheelchair
#Acute Kidney Injury
#Hyponatremia
#Hyperkalemia
#Acute on chronic anemia
#Anemia iron deficiency superimposed on anemia
of chronic disease
#Constipation
#Large sacral decubital wound
#Peripheral Artery Disease status post right
above-knee amputation
#Wheelchair and Bedbound Status
#Type 2 Diabetes Mellitus without hyperglycemia
#Essential hypertension
#Coronary Artery Disease and Coronary artery
calcifications
#Chronic urinary retention
#Chronic cervical myelopathy
#Hyperlipidemia
#Anxiety disorder
#Morbid obesity due to excess calories
#Spinal Stenosis
#Wheelchair and bedbound status
#Right upper posterior near buttocks red/purple
ecchymotic area suspect stage 1 vs evolving DTI.
L lateral distal knee small deep dermal stage 2
pressure injury vs from trauma?
Diet Diabetic, Carb Controlled,Restrict fluids to 48
oz
Activity Other activity
Additional Activity It is okay to mobilize her as tolerated;
obviously cannot bear weight on the left lower
extremity until the fracture is healed--but it
is okay to transfer from bed to chair/mobilize
for skin-decubitus care
Driving Restrictions No driving
Other Services PT,OT
Specialty Instructions Weigh Daily
Instructions:
Stand-Alone Forms:
Changes to Home Medications: Yes
Discharge Medications:
DC Medications w/original date entered in [employer]
aspirin 81 mg tablet,delayed release (Kartik Low Dose Aspirin) 81 mg PO DAILY Blood Clot Prevention/Tx 10/06/21
gabapentin 300 mg capsule 300 mg PO TID Neurological Condition 10/22/22
acetaminophen 325 mg tablet (Tylenol) 650 mg PO Q4HPRN PRN mild pain/fever 07/14/23
aluminum-mag hydroxide-simethicone 200 mg-200 mg-20 mg/5 mL oral susp (Mag-Al Plus) 15 ml PO Q4HPRN PRN indigestion 07/14/23
atorvastatin 10 mg tablet 10 mg PO HS High Cholesterol 07/14/23
bisacodyl 10 mg rectal suppository 10 mg NJ QPM Constipation 07/14/23
docusate sodium 100 mg capsule (Colace) 100 mg PO TID Constipation 07/14/23
pantoprazole 40 mg tablet,delayed release (Protonix) 40 mg PO DAILY Gastrointestinal Issue 07/14/23
sennosides 8.6 mg tablet (senna) 17.2 mg PO DAILY@1200 Constipation 07/14/23
Insulin Glargine In Device 8 units SC HS Diabetes 08/01/23
Lactobac no.2-Bifidobac no.1-S. thermo 112.5 billion cell capsule (Visbiome) 1 cap PO DAILY Supplement 08/01/23
alprazolam 0.25 mg tablet 0.25 mg PO Q8HPRN PRN anxiety 08/01/23
ascorbic acid (vitamin C) 500 mg tablet (Vitamin C) 500 mg PO DAILY Supplement 08/01/23
bisacodyl 5 mg tablet,delayed release (Dulcolax (bisacodyl)) 10 mg PO DAILYPRN PRN constipation 08/01/23
ferrous sulfate 325 mg (65 mg iron) tablet 325 mg PO DAILY Supplement 08/01/23
losartan 25 mg tablet 12.5 mg PO DAILY Blood Pressure 08/01/23
therapeutic multivitamin 1 tab PO DAILY Supplement 08/01/23
collagenase clostridium histo. 250 unit/gram topical ointment (Santyl) 1 applic topical DAILY #30 grams 08/16/23
miconazole nitrate 2 % topical powder (Miconazorb AF) 1 applic topical BID #85 grams 08/16/23
metformin 500 mg tablet 500 mg PO DAILY 11/29/23
amoxicillin 500 mg capsule 500 mg PO Q8H 6 days #17 caps 12/01/23
doxycycline hyclate 100 mg capsule 100 mg PO Q12 #19 caps 12/01/23
polyethylene glycol 3350 17 gram oral powder packet (HealthyLax) 17 g PO BID #14 ea 12/01/23
Home Medication Changes
Aspirin held until determined to be safe to resume outpatient.
Clopidogrel stopped due to anemia and hematoma.
Amoxicillin, Doxycycline and HealthyLax are all new medications.
Pending Results: No
Additional Pending Results:
Final Microbiology Results from Hospitalization
Total time spent discharging patient (in min): 43
--- NOTE | 2023-12-03 22:19 | W.DCSUMMARY ---
Discharge Summary
Discharge Data
Date of Admission: 11/27/23
Date of Discharge: 12/01/23
Total time spent discharging patient (in min): 43
-
Pending Results: Yes
Additional Pending Results:
Final Microbiology Results from Hospitalization
Hospital Course
73-year-old female from [facility] for abdominal discomfort. She also reported anorexia and chills off and on. Patient was admitted with septic shock and acute kidney injury, and treated with antibiotics. General surgery was
consulted for patient's sacral decubitus wound, and recommended no possible surgery until patient improved. Patient had a CT of her pelvis performed, which showed, as per radiologist's report: '1. Soft tissue stranding overlying the coccyx,
consistent with the patient's history of pressure sore. No associated abscess formation, and no CT evidence of osteomyelitis; 2. Comminuted fracture of the proximal left femur, which has a relatively acute appearance. Please correlate with history;
3. Mild diffuse soft tissue anasarca.' General surgery mentioned they could consider performing debridement in the future in the setting of patient's eschar in the sacral area, and recommended offloading and frequent turning for now. Orthopedics was
consulted for patient's left hip fracture (which was determined to be most likely from a fall patient had a few weeks prior to presentation to the hospital) -- for many different reasons, orthopedics determined it was best in this case to treat the
hip fracture non-operatively, and patient also stated she wants to treat her fracture non-operatively. Patient would need to follow-up with Dr. Mahmood (orthopedics) outpatient within about 1.5 weeks of discharge from the hospital.
Infectious Disease was consulted and recommended continuing Vancomycin for enterococcus catheter-associated UTI.
Nephrology was consulted for hyponatremia and acute kidney injury.
Later a CT Abdomen Pelvis Abdomen was done, due to anemia, to include the area around the hips and thighs, which showed hematoma near and around the left fracture site, there was also slight thickening of the bladder wall, as well as a bladder stone
-- please see full CT Abdomen Pelvis for more details.
Gastroenterology was consulted given patient's heme-positive dark stools. Gastroenterology deferred any endoscopic evaluation until patient's other issues such as femur fracture/sacral decub were resolved, and recommended gastroenterology follow-up
as outpatient for elective endoscopic evaluation.
There was a question of whether to resume both patient's Aspirin and Plavix given anemia and hematoma. Vascular Surgery and Cardiology were consulted and they both recommended stopping Plavix and continuing Aspirin when safe. Hematology was also
consulted and recommended holding Aspirin for now. The goal would be to re-evaluate restarting Aspirin (in the setting of patient's coronary artery disease and peripheral vascular disease) in the coming days and weeks after discharge. Parenteral
iron would be appropriate once urinary tract infection/sepsis resolved.
Discharge Plan
-
Patient Disposition: [facility]pc/SNF
Discharge Diagnosis/Procedures: #Septic shock
#Enterococcus and Aerococcus CAUTI
#Acute left proximal femoral fracture on CT Imaging secondary to a fall ~1 week (prior to presentation to hospital) out of wheelchair
#Acute Kidney Injury
#Hyponatremia
#Hyperkalemia
#Acute on chronic anemia
#Anemia iron deficiency superimposed on anemia of chronic disease
#Constipation
#Large sacral decubital wound
#Peripheral Artery Disease status post right above-knee amputation
#Wheelchair and Bedbound Status
#Type 2 Diabetes Mellitus without hyperglycemia
#Essential hypertension
#Coronary Artery Disease and Coronary artery calcifications
#Chronic urinary retention
#Chronic cervical myelopathy
#Hyperlipidemia
#Anxiety disorder
#Morbid obesity due to excess calories
#Spinal Stenosis
#Wheelchair and bedbound status
#Right upper posterior near buttocks red/purple ecchymotic area suspect stage 1 vs evolving DTI. L lateral distal knee small deep dermal stage 2 pressure injury vs from trauma?
Condition: Fair
Diet: Diabetic, Carb Controlled and Restrict fluids to 48 oz
Activity: Other activity
Additional Activity: It is okay to mobilize her as tolerated; obviously cannot bear weight on the left lower extremity until the fracture is healed--but it is okay to transfer from bed to chair/mobilize for skin-decubitus care
Driving Restrictions: No driving
Other Services: PT and OT
Specialty Instructions: Weigh Daily- Call MD for wt gain/loss 3 lbs overnight/5 lbs in 1 week
Activity Restrictions/Additional Instructions:
Closely re-evaluate whether or not patient's Aspirin can be restarted and when (okay to stop Plavix per cardiology and vascular surgery) -- will need to coordinate this with orthopedics and hematology
Follow-up with cardiology and vascular surgery
Wound Care Instructions
Sacral/buttocks-clean with 1/4 strength Dakin's solution, Miconazole powder prn yeasty periwound skin followed by no sting barrier wipe or Zinc barrier ointment. 1/4 strength Dakin's wet to dry gauze, cover with ABD pads, secure with non irritating
tape (i.e. silicone tape). Change bid and prn drainage/soilage.
L lateral distal knee ulcer-clean with saline, silcone border foam, change q 3 days and prn loosened dressing.
R posterior upper thigh-clean with saline, silcone border foam, change q 3 days and prn loosened dressing.
Air mattress
Turning schedule
Soft heel relief boot LLE as tolerated; elevate heel off bed with pillow/s or air chair cushion while boot off.
Pressure redistributing chair cushion (i.e. Roho).
NWB LLE.
Follow up with orthopedic surgeon.
Follow up with surgeon or at wound care center call for an appointment.
Referrals:
Larry Dodge DO [Active] - in less than 1 week (Hospital Follow-Up -- when can Aspirin be restarted. Also IV iron consideration.)
Be Mahmood MD [Active] - in one to two weeks (Hospital Follow-Up)
Fabrice Padgett MD [Family Provider] - in one to two days (Needs repeat CBC, BMP, Mag)
Iván Echevarria MD [Active] - (Call GI office to arrange follow up for anemia with Dr. Echevarria and [facility]/PA 4-6 weeks or sooner if drop in hemoglobin)
Additional Discharge Medication Instructions: Aspirin held until determined to be safe to resume outpatient.
Clopidogrel stopped due to anemia and hematoma.
Amoxicillin, Doxycycline and HealthyLax are all new medications.
Prescriptions:
New
amoxicillin 500 mg Capsule
500 mg PO Q8H 6 Days Qty: 17 0RF
Rx Instructions:
Take through December 06, 2023
polyethylene glycol 3350 [HealthyLax] 17 gram Powder In Packet
17 g PO BID Qty: 14 0RF
doxycycline hyclate 100 mg Capsule
100 mg PO Q12 Qty: 19 0RF
Rx Instructions:
Take through December 10, 2023
Continued
gabapentin 300 mg capsule
300 mg PO TID
therapeutic multivitamin Tablet
1 tab PO DAILY
alprazolam 0.25 mg Tablet
0.25 mg PO Q8HPRN PRN (Reason: anxiety)
ascorbic acid (vitamin C) [Vitamin C] 500 mg Tablet
500 mg PO DAILY
ferrous sulfate 325 mg (65 mg iron) Tablet
325 mg PO DAILY
losartan 25 mg Tablet
12.5 mg PO DAILY
Rx Instructions:
HOLD
bisacodyl [Dulcolax (bisacodyl)] 5 mg Tablet,Delayed Release (Dr/Ec)
10 mg PO DAILYPRN PRN (Reason: constipation)
Visbiome 112.5 billion cell Capsule
1 cap PO DAILY
Insulin Glargine In Device
8 units SC HS
miconazole nitrate [Miconazorb AF] 2 % Powder
1 applic topical BID Qty: 85 0RF
Santyl 250 unit/gram Ointment
1 applic topical DAILY Qty: 30 0RF
metformin 500 mg Tablet
500 mg PO DAILY
sennosides [senna] 8.6 mg Tablet
17.2 mg PO DAILY@1200
acetaminophen [Tylenol] 325 mg Tablet
650 mg PO Q4HPRN PRN (Reason: mild pain/fever)
atorvastatin 10 mg Tablet
10 mg PO HS
bisacodyl 10 mg Suppository
10 mg NM QPM
pantoprazole [Protonix] 40 mg Tablet,Delayed Release (Dr/Ec)
40 mg PO DAILY
docusate sodium [Colace] 100 mg Capsule
100 mg PO TID
alum-mag hydroxide-simeth [Mag-Al Plus] 200-200-20 mg/5 mL Suspension
15 ml PO Q4HPRN PRN (Reason: indigestion)
Held
aspirin [Kartik Low Dose Aspirin] 81 MG tablet,delayed release (DR/EC)
81 mg PO DAILY
Hold Instructions: Resume on 12/13/23. Discuss with your outpatient physicians about when it is safe to resume this medication.
Discontinued
clopidogrel 75 MG tablet
75 mg PO DAILY
Rx Instructions:
start on 07/15/23
Discharge Orders:
Discharge Patient (As Directed); Ordered 12/01/23
Ordered By: Srinivasa Byrd
Discharge Date and Time
Discharge Date/Time: 12/01/23 17:22
Print Language: KOREAN
== END 2023-12-01 17:22 | DRG 698 ==
LOC: IMU 12:59
PROVIDERS: Emergency Medicine; Specialist; ADMITTING PHYSICIAN Hospitalist; ATTENDING PHYSICIAN Hospitalist; CONSULT PHYSICIAN Internal Medicine; CONSULT PHYSICIAN Internal Medicine Gastroenterology; CONSULT PHYSICIAN Internal Medicine Infectious Disease; CONSULT PHYSICIAN Orthopaedic Surgery Hand Surgery; CONSULT PHYSICIAN Specialist; CONSULT PHYSICIAN Surgery Vascular Surgery; EMERGENCY PHYSICIAN Emergency Medicine; FAMILY PHYSICIAN Internal Medicine; OTHER PHYSICIAN Internal Medicine Hematology & Oncology; OTHER PHYSICIAN Surgery
DX: T83.518A Infection and inflammatory reaction due to other urinary catheter, initial encounter (principal); A41.9 Sepsis, unspecified organism; S72.102A Unspecified trochanteric fracture of left femur, initial encounter for closed fracture; N17.0 Acute kidney failure with tubular necrosis; R65.21 Severe sepsis with septic shock; N39.0 Urinary tract infection, site not specified; E87.1 Hypo-osmolality and hyponatremia; E87.20 Acidosis, unspecified; G99.2 Myelopathy in diseases classified elsewhere; K92.2 Gastrointestinal hemorrhage, unspecified; F17.200 Nicotine dependence, unspecified, uncomplicated; I70.209 Unspecified atherosclerosis of native arteries of extremities, unspecified extremity; E87.5 Hyperkalemia; I10 Essential (primary) hypertension; I25.10 Atherosclerotic heart disease of native coronary artery without angina pectoris; M48.061 Spinal stenosis, lumbar region without neurogenic claudication; F41.9 Anxiety disorder, unspecified; E66.01 Morbid (severe) obesity due to excess calories; Z66 Do not resuscitate; Z79.82 Long term (current) use of aspirin; D50.9 Iron deficiency anemia, unspecified; K80.20 Calculus of gallbladder without cholecystitis without obstruction; E11.40 Type 2 diabetes mellitus with diabetic neuropathy, unspecified; E11.65 Type 2 diabetes mellitus with hyperglycemia; E78.00 Pure hypercholesterolemia, unspecified; Y84.6 Urinary catheterization as the cause of abnormal reaction of the patient, or of later complication, without mention of misadventure at the time of the procedure; W19.XXXA Unspecified fall, initial encounter; Z74.01 Bed confinement status; Z99.3 Dependence on wheelchair; Z89.611 Acquired absence of right leg above knee; L89.301 Pressure ulcer of unspecified buttock, stage 1; L89.892 Pressure ulcer of other site, stage 2
CPT/HCPCS: 51702; 71046; 72192; 73502; 74177; 76705; 80048; 80053; 80202; 81003; 81015; 82040; 82728; 82962; 83036; 83540; 83550; 83605; 84484; 85025; 85027; 85610; 85730; 87040; 87070; 87077; 87086; 87147; 87186; 87205; 87502; 87811; 93005; 96361; 96374; 97163; 97167; 99285; Q9967

== ENCOUNTER → 2023-12-20 10:15 | Outpatient (REF) | payer MEDICARE, SELFPAY | LOC: WOUND 10:15 | PROVIDERS: ATTENDING PHYSICIAN Surgery; FAMILY PHYSICIAN Family Medicine | DX: L89.150 Pressure ulcer of sacral region, unstageable (principal); G62.9 Polyneuropathy, unspecified; E11.59 Type 2 diabetes mellitus with other circulatory complications; I73.9 Peripheral vascular disease, unspecified; I44.4 Left anterior fascicular block; I10 Essential (primary) hypertension; S14.109S Unspecified injury at unspecified level of cervical spinal cord, sequela; X58.XXXS Exposure to other specified factors, sequela; Z89.611 Acquired absence of right leg above knee | CPT/HCPCS: 99204 ==

== ENCOUNTER 2024-01-05 05:47 | Inpatient (IN) | payer MEDICARE, SELFPAY ==
[2024-01-05] VITALS (79 sets, daily range): BP systolic 50–163; BP diastolic 29–86
[2024-01-05 02:06] LABS: Urine Albumin 1+ (Neg - Trace); Urine Bilirubin Negative (Negative); Urine Color Yellow; Urine Glucose Negative (Negative); Urine Ketone Negative (Negative); Urine Leukocyte 2+ (Negative); Urine Nitrite Positive (Negative); Urine Occult Blood 4+ (Negative); Urine Urobilinogen 1+ (Neg - 1+); Urine pH 6.5 (5.0-9.0)
[2024-01-05 02:06] LABS: Hematocrit 24.3 % (37.0-47.0); Hemoglobin 7.5 g/dL (12.0-16.0); Mean Corp Hgb Conc. 30.9 g/dL (33.0-37.0); Mean Corpuscular Hgb 23.9 pg (27.0-31.0); Mean Corpuscular Volume 77.4 fL (81.0-99.0); Mean Platelet Volume 8.6 fL (7.4-10.4); Nucleated Red Blood Cells % 0 %; Platelet Count 327 10^3/uL (130-400); Red Blood Cell Count 3.14 10^6/uL (4.20-5.40); Red Cell Dist. Width 17.4 % (11.5-14.5); White Blood Cell Count 17.8 10^3/uL (4.8-10.8)
[2024-01-05 02:11] LABS: Urine Character Cloudy (Clear)
[2024-01-05 02:15] LABS: COVID-19 Antigen Negative (Negative)
[2024-01-05 02:20] LABS: Lactic Acid 3.1 mmol/L (0.7-2.0)
[2024-01-05 02:20] LABS: ALT (SGPT) 13 U/L (0-35); AST (SGOT) 19 U/L (14-36); Albumin 2.2 g/dl (3.5-5.0); Alkaline Phosphatase 309 U/L (38-126); Blood Urea Nitrogen 22 mg/dl (7-17); Calcium 9.4 mg/dl (8.4-10.2); Carbon Dioxide 25 mmol/L (22-30); Chloride 100 mmol/L (98-107); Glucose 113 mg/dl (70-99); Potassium 3.2 mmol/L (3.5-5.1); Sodium 132 mmol/L (135-145); Total Bilirubin 1.1 mg/dl (0.2-1.3); Total Protein 5.3 g/dl (6.3-8.2); eGFR > 60.00
[2024-01-05 02:36] LABS: Absolute Neutrophils -Man Diff 17.6 10^3/uL (1.4-6.5); Anisocytosis 1+; Band Neutrophils 31 % (0-3); Lymphocytes 1 % (20-51); Microcytosis 1+; Monocytes 0 % (2-9); Normal RBC Morphology No; Platelets Checked Yes; Segmented Neutrophils 68 % (42-75)
[2024-01-05 02:37] LABS: Ovalocytes Slight; Vacuolated Segs 1+
[2024-01-05 02:38] LABS: Total Cells Counted 100
[2024-01-05] MEDS: NSS 1000 IV ×3 (02:50→19:33)
--- NOTE | 2024-01-05 02:51 | ED.GENMED ---
History of Present Illness
<RENETTA Sherman - Last Filed: 01/05/24 03:42>
General
Chief Complaint: Abnormal Lab Value
Source: patient
Exam Limitations: none
Time Seen by Provider: 01/05/24 02:25
Nursing documentation reviewed up to this point in time: agreed with
Travel History
Have you had any contact with someone who has COVID-19?: Unable to Answer
Do you have any symptoms of coronavirus? Fever > 100 degrees, chills, cough, shortness of breath, sore throat, loss of taste or smell, muscle aches, or headache?: Unable to Answer
History of Present Illness
History of Present Illness:
This is a 73 year old female who arrives from [facility] due to their concerns of low hemoglobin and UTI. She has a history of HTN, HLD, DM, PVD s/p post right AKA, chronic low back pain, and chronic indwelling Kitchen catheter. She was seen in
here on 11/27/23 and found to have sepsis associated with UTI. She was also found to have 7.4 Hgb. She was also found to have an acute/subacute left hip fracture which was likely related to a fall and noted to have a deep sacral decubitus. She has
been short of breath x1 week with intermittent cough. She states the cough has worsened. She denies chest pain, abdominal pain, nausea or vomiting, diarrhea or constipation.
Past History
<RENETTA Sherman - Last Filed: 01/05/24 03:42>
Past History
ED Past Medical History: HTN, Hypercholesterolemia, NIDDM, Other (Peripheral vascular disease, foot drop, carotid artery disease) and Other (Severe L4-5 spinal stenosis)
ED Past Surgical History: Orthopedic (Cervical spine fracture with surgical repair 2016 and 2021, lumbar laminectomy 2016, 2019; spinal cord stimulator implant 2020), Urological (Bladder plication 2012) and Other (Femoral-popliteal bypass
right-sided, right carotid endarterectomy 2012, cataract extraction, right AKA)
Social History
Tobacco: Smoker
Alcohol: None
Drug: None
Personal:
Living: with family
Employment: Not employed
Family History
Family History: Other (Reviewed and noncontributory)
Review of Systems
<Amanda Ricci [facility] - Last Filed: 01/05/24 03:42>
Review of Systems
Allergies reviewed?: Yes
All Other Systems: Not applicable
Constitutional: Reports no symptoms
EENT: Reports no symptoms
Respiratory: Reports cough and trouble breathing
Cardiac: Reports no symptoms
ABD/GI: Reports no symptoms
: Reports no symptoms
Musculoskeletal: Reports no symptoms
Skin: Reports no symptoms
Neurological: Reports no symptoms
Endocrine: Reports no symptoms
Hematologic/Lymphatic: Reports no symptoms
Psychiatric: Reports no symptoms
Phy Exam
<Amanda Ricci [facility] - Last Filed: 01/05/24 03:42>
General Physical Exam
General Presentation: well appearing and no apparent distress
General Skin: warm and dry
General Habitus: normal
General Mental: alert
General Hydration: appears well hydrated
ENT Exam
ENT Exam: EOMI, pharynx normal, neck supple and normocephalic
Eye Exam
Eye Exam: PERRL, cornea clear and conjunctiva normal
Cardiovascular Exam
Cardiovascular Exam: regular rate/rhythm, no edema, no murmur and normal peripheral pulses
Pulmonary Exam
Pulmonary Exam: no respiratory distress, no rales, no crackles, no stridor, no wheezing and no cough
Respiratory Effort: tachypnea
Cough: non productive cough
Breath Sounds: Rhonchi: left lower and right lower
Gastrointestinal Exam
Gastrointestinal Exam: normal bowel sounds, non tender, soft, no organomegaly, no pulsatile mass and non distended
Neurological Exam
Neurological Exam: alert, oriented x3, no motor deficits and speech normal
Musculoskeletal Exam
Musculoskeletal Exam: full ROM and no edema
Skin Exam
Skin Exam: normal color, warm/dry, no rash and no petechia
Psychiatric Exam
Psychiatric Exam: normal mood/affect
Course
<RENETTA Sherman - Last Filed: 01/05/24 03:42>
Orders/Labs/Results
Orders:
Orders
01/05/24 01:50
Electrocardiogram (*1) Urgent
Reason for Study: Other
Other Reason for Exam: Possible Sepsis
Cardiac Monitoring- Treatment ONCE
IV Insert/Care/Rem.- Treatment PRN
CR Chest Portable - 1 View Urgent
Comment:
Reason For Exam: SOB/COUGH
Reason Study Needs to be Portable: Patient Unstable
O2 Therapy [RESP] Urgent
Titrate/Wean O2 to maintain O2 sat greater than (%): 93
Special Instructions: TO MAINTAIN CONTINUOUS O2 SATS > OR = 93%
Pulse Ox/cont/shift [RESP] Urgent
Quantity: 1
Special Instructions: CONTINUOUS
01/05/24 01:51
EKG- Treatment ONCE
01/05/24 01:54
Complete Blood Count/With Diff Urgent
Comprehensive Metabolic Panel Urgent
Magnesium Urgent
Comment: ADDED
Manual Differential Urgent
Blood Culture Q30M
CARMEN Source: Blood/Venous
Specimen Description:
Comment: FROM 2 SEPARATE SITES
Blood Culture Q30M
CARMEN Source: Blood/Venous
Specimen Description:
Comment: FROM 2 SEPARATE SITES
01/05/24 01:55
Type+Screen Urgent
COVID-19 Antigen Urgent
Source: Nasal Swab
Lactic Acid Q4H
Comment: ON ICE, CANCEL 2ND ORDER IF FIRST LACTIC ACID LEVEL <2
Urinalysis Reflex To Culture Urgent
Date Specimen was Collected: 01/05/24
Time Specimen was Collected: 01:52
Urine Microscopic Reflex Cult Urgent
Urine Culture Urgent
CARMEN Source: U
Specimen Description:
Date Specimen was Collected: 01/05/24
Time Specimen was Collected: 01:52
01/05/24 02:30
0.9% Sodium Chloride 1000 ml [Nss] 1,000 ml IV BOLUS
01/05/24 02:31
CT Chest Pe Study Urgent
Comment:
Reason For Exam: Acute SOB, hypoxia, sinu tach
01/05/24 02:35
Troponin I Urgent
01/05/24 03:15
0.9% Sodium Chloride 1000 ml [Nss] 2,000 ml IV BOLUS
01/05/24 03:25
NORepinephrine 4 MG/250 ML [Levophed] 4 mg in 250 ml .ROUTE .STK-MED
01/05/24 03:39
Acetaminophen 1000MG/100Ml [Ofirmev] 1,000 mg in 100 ml IV ONCE
Acetaminophen IV Indication:: No SD & No Enteral Access
Cefepime HCl [Maxipime] 2,000 mg IV NOW STA
NORepinephrine 4 MG/250 ML [Levophed] 4 mg in 250 ml IV NOW
Initial dose in mcg/min, then titrate:: 2
Titrate to keep:: MAP > 65 mmHg
Titrate by mcg/min:: 1-2 mcg/min
Frequency of titrations (minutes):: 5
Maximum dose in ICU in mcg/min:: 30
Maximum dose in IMU in mcg/min:: 8
Maximum dose in IVU in mcg/min:: 4
Begin to taper infusion when:: Remained at goal for 4hrs
Taper by mcg/min:: 1-2 mcg/min
Frequency of taper (minutes) if patient maintains goal:: 30
Taper to off?: Yes
If infusion off & no longer maintaining goal:: Contact Provider
01/05/24 03:58
Gentamicin Sulfate [Gentamicin] 180 mg 0.9% Sodium Chloride [Nss] 50 ml IV NOW
01/05/24 04:11
ABG [Arterial Blood Gas] Urgent
%Oxygen/Room Air: 4L NC
01/05/24 05:10
Add On- LAB Routine
Tests Added?: magnesium
Potassium Chloride [KCl] 40 meq 0.9% Sodium Chloride 250 ml [Nss] 250 ml IV NOW
01/05/24 05:11
Azithromycin 500 mg/250 ml [Zithromax Infusion] 500 mg in 250 ml IV NOW
01/05/24 05:14
Vancomycin [Vancocin] 2,000 mg 0.9% Sodium Chloride 500 ml [Nss] 500 ml IV NOW
01/05/24 05:21
Legionella Urinary Antigen Routine
CARMEN Source: Urine
Specimen Description:
01/05/24 06:00
Lactic Acid Q4H
Comment: ON ICE, CANCEL 2ND ORDER IF FIRST LACTIC ACID LEVEL <2
Flush (0.9% Sodium Chloride) [Flush (Nss)] See Dose Instructions IV PER PROTOCOL
VANCOMYCIN Pharmacy to Dose [VANCOCIN Pharmacy to Dose] 1 each Pharmacy To Prepare [Call Pharmacy To Prepare] 0 ml IV PER PROTOCOL
Abnormal Lab Results
01/05/24 01/05/24 01/05/24
01:54 01:55 04:11
WBC 17.8 H 10^3/uL
(4.8-10.8)
RBC 3.14 L 10^6/uL
(4.20-5.40)
Hgb 7.5 L g/dL
(12.0-16.0)
Hct 24.3 L %
(37.0-47.0)
MCV 77.4 L fL
(81.0-99.0)
MCH 23.9 L pg
(27.0-31.0)
MCHC 30.9 L g/dL
(33.0-37.0)
RDW 17.4 H %
(11.5-14.5)
Abs Neuts (Manual) 17.6 H 10^3/uL
(1.4-6.5)
Band Neutrophils 31 H %
(0-3)
Lymphocytes (Manual) 1 L %
(20-51)
Monocytes (Manual) 0 L %
(2-9)
pH 7.34 L
(7.35-7.45)
pCO2 47 H mmHg
(32-35)
pO2 60 L mmHg
(83-108)
ABG O2 Sat (Measured) 91.1 L %
(94-98)
Sodium 132 L mmol/L
(135-145)
Potassium 3.2 L mmol/L
(3.5-5.1)
BUN 22 H mg/dl
(7-17)
Glucose 113 H mg/dl
(70-99)
Lactic Acid 3.1 H mmol/L
(0.7-2.0)
Alkaline Phosphatase 309 H U/L
(38-126)
Total Protein 5.3 L g/dl
(6.3-8.2)
Albumin 2.2 L g/dl
(3.5-5.0)
Ur Occult Blood Reflex 4+ A
(Negative)
Urine Nitrite (Reflex) Positive A
(Negative)
Leukocyte Esterase Rfl 2+ A
(Negative)
Urine Albumin (Reflex) 1+ A
(Neg - Trace)
01/05/24 01:54
01/05/24 01:54
Vital Signs
Initial and Last Documented VS:
Initial Vital Signs
Temp Pulse Resp Pulse Ox
99.9 F 111 27 94
01/05/24 01:47 01/05/24 01:47 01/05/24 01:47 01/05/24 01:47
Last Documented Vital Signs
Temp Pulse Resp BP Pulse Ox
102.2 F H 97 16 96/56 98
01/05/24 03:33 01/05/24 05:15 01/05/24 05:15 01/05/24 05:10 01/05/24 05:15
<Lottie Dominguez, - Last Filed: 01/05/24 05:33>
Orders/Labs/Results
Orders:
Orders
01/05/24 01:50
Electrocardiogram (*1) Urgent
Reason for Study: Other
Other Reason for Exam: Possible Sepsis
Cardiac Monitoring- Treatment ONCE
IV Insert/Care/Rem.- Treatment PRN
CR Chest Portable - 1 View Urgent
Comment:
Reason For Exam: SOB/COUGH
Reason Study Needs to be Portable: Patient Unstable
O2 Therapy [RESP] Urgent
Titrate/Wean O2 to maintain O2 sat greater than (%): 93
Special Instructions: TO MAINTAIN CONTINUOUS O2 SATS > OR = 93%
Pulse Ox/cont/shift [RESP] Urgent
Quantity: 1
Special Instructions: CONTINUOUS
01/05/24 01:51
EKG- Treatment ONCE
01/05/24 01:54
Complete Blood Count/With Diff Urgent
Comprehensive Metabolic Panel Urgent
Magnesium Urgent
Comment: ADDED
Manual Differential Urgent
Blood Culture Q30M
CARMEN Source: Blood/Venous
Specimen Description:
Comment: FROM 2 SEPARATE SITES
Blood Culture Q30M
CARMEN Source: Blood/Venous
Specimen Description:
Comment: FROM 2 SEPARATE SITES
01/05/24 01:55
Type+Screen Urgent
COVID-19 Antigen Urgent
Source: Nasal Swab
Lactic Acid Q4H
Comment: ON ICE, CANCEL 2ND ORDER IF FIRST LACTIC ACID LEVEL <2
Urinalysis Reflex To Culture Urgent
Date Specimen was Collected: 01/05/24
Time Specimen was Collected: 01:52
Urine Microscopic Reflex Cult Urgent
Urine Culture Urgent
CARMEN Source: U
Specimen Description:
Date Specimen was Collected: 01/05/24
Time Specimen was Collected: 01:52
01/05/24 02:30
0.9% Sodium Chloride 1000 ml [Nss] 1,000 ml IV BOLUS
01/05/24 02:31
CT Chest Pe Study Urgent
Comment:
Reason For Exam: Acute SOB, hypoxia, sinu tach
01/05/24 02:35
Troponin I Urgent
01/05/24 03:15
0.9% Sodium Chloride 1000 ml [Nss] 2,000 ml IV BOLUS
01/05/24 03:25
NORepinephrine 4 MG/250 ML [Levophed] 4 mg in 250 ml .ROUTE .STK-MED
01/05/24 03:39
Acetaminophen 1000MG/100Ml [Ofirmev] 1,000 mg in 100 ml IV ONCE
Acetaminophen IV Indication:: No SD & No Enteral Access
Cefepime HCl [Maxipime] 2,000 mg IV NOW STA
NORepinephrine 4 MG/250 ML [Levophed] 4 mg in 250 ml IV NOW
Initial dose in mcg/min, then titrate:: 2
Titrate to keep:: MAP > 65 mmHg
Titrate by mcg/min:: 1-2 mcg/min
Frequency of titrations (minutes):: 5
Maximum dose in ICU in mcg/min:: 30
Maximum dose in IMU in mcg/min:: 8
Maximum dose in IVU in mcg/min:: 4
Begin to taper infusion when:: Remained at goal for 4hrs
Taper by mcg/min:: 1-2 mcg/min
Frequency of taper (minutes) if patient maintains goal:: 30
Taper to off?: Yes
If infusion off & no longer maintaining goal:: Contact Provider
01/05/24 03:58
Gentamicin Sulfate [Gentamicin] 180 mg 0.9% Sodium Chloride [Nss] 50 ml IV NOW
01/05/24 04:11
ABG [Arterial Blood Gas] Urgent
%Oxygen/Room Air: 4L NC
01/05/24 05:10
Add On- LAB Routine
Tests Added?: magnesium
Potassium Chloride [KCl] 40 meq 0.9% Sodium Chloride 250 ml [Nss] 250 ml IV NOW
01/05/24 05:11
Azithromycin 500 mg/250 ml [Zithromax Infusion] 500 mg in 250 ml IV NOW
01/05/24 05:14
Vancomycin [Vancocin] 2,000 mg 0.9% Sodium Chloride 500 ml [Nss] 500 ml IV NOW
01/05/24 05:21
Legionella Urinary Antigen Routine
CARMEN Source: Urine
Specimen Description:
01/05/24 06:00
Lactic Acid Q4H
Comment: ON ICE, CANCEL 2ND ORDER IF FIRST LACTIC ACID LEVEL <2
Flush (0.9% Sodium Chloride) [Flush (Nss)] See Dose Instructions IV PER PROTOCOL
VANCOMYCIN Pharmacy to Dose [VANCOCIN Pharmacy to Dose] 1 each Pharmacy To Prepare [Call Pharmacy To Prepare] 0 ml IV PER PROTOCOL
Abnormal Lab Results
01/05/24 01/05/24 01/05/24
01:54 01:55 04:11
WBC 17.8 H 10^3/uL
(4.8-10.8)
RBC 3.14 L 10^6/uL
(4.20-5.40)
Hgb 7.5 L g/dL
(12.0-16.0)
Hct 24.3 L %
(37.0-47.0)
MCV 77.4 L fL
(81.0-99.0)
MCH 23.9 L pg
(27.0-31.0)
MCHC 30.9 L g/dL
(33.0-37.0)
RDW 17.4 H %
(11.5-14.5)
Abs Neuts (Manual) 17.6 H 10^3/uL
(1.4-6.5)
Band Neutrophils 31 H %
(0-3)
Lymphocytes (Manual) 1 L %
(20-51)
Monocytes (Manual) 0 L %
(2-9)
pH 7.34 L
(7.35-7.45)
pCO2 47 H mmHg
(32-35)
pO2 60 L mmHg
(83-108)
ABG O2 Sat (Measured) 91.1 L %
(94-98)
Sodium 132 L mmol/L
(135-145)
Potassium 3.2 L mmol/L
(3.5-5.1)
BUN 22 H mg/dl
(7-17)
Glucose 113 H mg/dl
(70-99)
Lactic Acid 3.1 H mmol/L
(0.7-2.0)
Alkaline Phosphatase 309 H U/L
(38-126)
Total Protein 5.3 L g/dl
(6.3-8.2)
Albumin 2.2 L g/dl
(3.5-5.0)
Ur Occult Blood Reflex 4+ A
(Negative)
Urine Nitrite (Reflex) Positive A
(Negative)
Leukocyte Esterase Rfl 2+ A
(Negative)
Urine Albumin (Reflex) 1+ A
(Neg - Trace)
01/05/24 01:54
01/05/24 01:54
Vital Signs
Initial and Last Documented VS:
Initial Vital Signs
Temp Pulse Resp Pulse Ox
99.9 F 111 27 94
01/05/24 01:47 01/05/24 01:47 01/05/24 01:47 01/05/24 01:47
Last Documented Vital Signs
Temp Pulse Resp BP Pulse Ox
102.2 F H 97 16 96/56 98
01/05/24 03:33 01/05/24 05:15 01/05/24 05:15 01/05/24 05:10 01/05/24 05:15
<RENETTA Sherman - Last Filed: 01/05/24 03:42>
MDM/Problems Addressed
Differential Diagnosis Includes:
PE, DE, Respiratory distress, progressive anemia, Catheter associated UTI, septic shock
<Lottie Dominguez DO - Last Filed: 01/05/24 05:33>
*Radiology
Radiology exam reviewed: preliminary read by ED provider (Chest x-ray shows no acute disease. No evidence of infiltrate or CHF.) and radiology read reviewed
*Pulse Oximetry
Patient hypoxic: yes
*EKG
Interpreted by ED Provider?: Yes
Interpretation: abnormal
Comparison EKG: no changes (Unchanged from previous July 29, 2024 save for heart rate has increased from normal sinus rhythm to now sinus tachycardia)
Rate: tachycardiac
Rhythm: sinus
[place]: left axis deviation
Interval: normal interval
QRS Pattern: poor R-wave progression
Ischemia: no ischemia
*Power Generation Technician Interpretation
Rate: tachycardiac
Interpretation: abnormal
Rhythm: sinus
*Critical Care Note
Total Time (30-74mins, 75-104mins- exclusive of procedures): 45
comment:
Critical care statement: A total of 45 minutes of critical care time was provided for this patient. This includes management of unstable vital signs, evaluation of the patient at bedside, reviewing the patient's pertinent medical records, discussion
with consultants, review of old EKGs and review of pertinent medical records. This time with separate from time utilized to perform the aforementioned documented procedures
ED Attending Note
<RENETTA Sherman - Last Filed: 01/05/24 03:42>
-
Portions of this chart may have been created with voice recognition software.� Occasional wrong word or��sound alike� substitutions may have occurred due to the inherent limitations of voice recognition software.
<Lottie Dominguez DO - Last Filed: 01/05/24 05:33>
ED Attending Note
Patient seen and examined by attending physician: Yes
I performed the substantive portion of visit, reviewed & personally made and approve the management plan that is documented in note by myself or MANUELA.: Yes
I performed a history and physical exam of patient and discussed management with resident, I reviewed resident's note and agree with documented findings and plan of care.: Yes
ED Attending Note:
This is a 73-year-old woman, chronic resident of long-term care facility. She has history of hypertension, hyperlipidemia, diabetes, peripheral vascular disease status post right AKA, chronic low back pain, chronic indwelling Kitchen catheter. And
was most recently hospitalized here 2 months ago for acute catheter associated UTI with sepsis. She was found to be significantly anemic with a hemoglobin of 7.4 which had drifted down from 8-9 in August. She was also noted to have
acute/subacute left hip fracture which was likely related to a fall a few weeks prior to that hospitalization.
She was noted to have a deep sacral decubitus but CAT scan showed no evidence of abscess nor osteomyelitis.
She was evaluated by orthopedics as well as general surgery and as patient is chronically nonambulatory, hip fracture was recommended to be treated conservatively.
She was also noted to have heme positive dark stools. GI was consulted and recommended to defer endoscopic evaluation until other issues are resolved such as femur fracture/sacral decubitus/UTI.
Due to left thigh hematoma, heme positive stools and anemia, aspirin and Plavix were discontinued.
She is sent to the ED by custodial due to concern for shortness of breath the patient states began approximately 1 week ago with intermittent cough, progressive over the past week. There was also concern for progressive anemia as well as UTI.
Patient noted to be febrile upon arrival to the ED. Patient was unaware that she was running a fever. She has had an intermittent nonproductive cough over the past week. She denies chest pain, denies abdominal pain, no nausea or vomiting, no
diarrhea or constipation. Chronic indwelling Kitchen catheter in place.
GENERAL: 73-year-old woman appears chronically debilitated, bedbound. She is awake but moderately lethargic, answering simple questions appropriately. Mild to moderate resting tachypnea is noted. Pulse ox 96% on 4 L nasal cannula.
EYE: pupils equal and reactive. anicteric. Pale conjunctiva.
NECK: Supple, nontender, no meningismus, no significant adenopathy. No JVD.
ENT: posterior pharynx is clear, oral mucosa is minimally dry. No rhinorrhea.
CARDIAC: Regular rhythm, mildly tachycardic. no murmur.
LUNGS: Mild to moderate resting tachypnea with prolonged expiratory phase. Bibasilar rhonchi right greater than left.
ABDOMEN: Rotund, soft, nondistended, without focal tenderness, normoactive BS. Kitchen catheter in place draining dark fatou cloudy urine.
NEUROLOGICAL: Awake, moderately lethargic, oriented x 3, limited range of motion left lower extremity related to left hip fracture and limited range of motion right lower extremity related to chronic AKA.
SKIN: Mildly hot to touch and dry, moderately pale in color, sacral decubitus.
MUSCULOSKELETAL: Right AKA stump is clean and dry. Left lower extremity externally rotated with limited range of motion of left hip related to pain. Peripheral pulses are full and equal b/l.
PSYCH: Normal and appropriate interaction.
Patient noted to have low-grade fever, moderate hypotension and mild tachycardia concerning for sepsis syndrome.
With shortness of breath, cough, concerning for pneumonia. Other consideration is PE.
Concern for progressive anemia, now symptomatic anemia. Concern for occult blood loss anemia.
Chronic indwelling Kitchen catheter, concern for catheter associated UTI.
Labs thus far reveal moderate but relatively stable anemia with hemoglobin of 7.5. Significantly elevated white blood cell count of 17.8, similar elevation noted November of this year.
Mild hypokalemia, minimally elevated BUN�is improved from previous. Normal creatinine.
Lactic acid is elevated at 3.1.
Urinalysis is again nitrite positive, +2 leukocytes esterase positive, +4 blood. Microscopic is pending.
IV fluid resuscitation has been initiated.
Portable chest x-ray is essentially unremarkable. No evidence of infiltrate nor CHF.
Will check CTA of the chest/PE study.
01/05/2024 04:45 AM
After IV fluids blood pressure remains quite low thus Levophed initiated with marked improvement in hypotension.
IV antibiotics initiated for presumptive catheter associated infection/urosepsis.
IV Tylenol for fever.
CT of the chest shows no evidence of PE. There is a patchy opacity in the right lower lung which could reflect infection versus nodule along with element of air-fluid level in the esophagus with concern for aspiration.
ABG shows normal pH with only minimally elevated CO2.
Respiratory distress has markedly improved after IV fluids and improvement in blood pressure. O2 has been weaned to 2 L.
at bedside. We discussed current findings and plan of care.
We verified that patient is DNR status.
Discharge Plan
Departure
Patient Disposition: Admit
Date of Disposition: 01/05/24
Time of Disposition: 04:30
Admit to: IMU
Admit to doctor: Lupe
Presentation/result/management discussed w/ accepting MD/DO: Hospitalist
Condition: Serious
Discharge Problem:
Acute sepsis syndrome, Catheter-associated urinary tract infection, Acute hypoxic respiratory failure, Aspiration pneumonia
Prescriptions:
No Action
aspirin [Kartik Low Dose Aspirin] 81 MG tablet,delayed release (DR/EC)
81 mg PO DAILY
Hold Instructions: Resume on 12/13/23. Discuss with your outpatient physicians about when it is safe to resume this medication.
gabapentin 300 mg capsule
300 mg PO TID
therapeutic multivitamin Tablet
1 tab PO DAILY
alprazolam 0.25 mg Tablet
0.25 mg PO Q8HPRN PRN (Reason: anxiety)
ascorbic acid (vitamin C) [Vitamin C] 500 mg Tablet
500 mg PO DAILY
ferrous sulfate 325 mg (65 mg iron) Tablet
325 mg PO DAILY
losartan 25 mg Tablet
12.5 mg PO DAILY
Rx Instructions:
HOLD
bisacodyl [Dulcolax (bisacodyl)] 5 mg Tablet,Delayed Release (Dr/Ec)
10 mg PO DAILYPRN PRN (Reason: constipation)
Visbiome 112.5 billion cell Capsule
1 cap PO DAILY
Insulin Glargine In Device
8 units SC HS
miconazole nitrate [Miconazorb AF] 2 % Powder
1 applic topical BID Qty: 85 0RF
Santyl 250 unit/gram Ointment
1 applic topical DAILY Qty: 30 0RF
metformin 500 mg Tablet
500 mg PO DAILY
amoxicillin 500 mg Capsule
500 mg PO Q8H 6 Days Qty: 17 0RF
Rx Instructions:
Take through December 06, 2023
polyethylene glycol 3350 [HealthyLax] 17 gram Powder In Packet
17 g PO BID Qty: 14 0RF
doxycycline hyclate 100 mg Capsule
100 mg PO Q12 Qty: 19 0RF
Rx Instructions:
Take through December 10, 2023
sennosides [senna] 8.6 mg Tablet
17.2 mg PO DAILY@1200
acetaminophen [Tylenol] 325 mg Tablet
650 mg PO Q4HPRN PRN (Reason: mild pain/fever)
atorvastatin 10 mg Tablet
10 mg PO HS
bisacodyl 10 mg Suppository
10 mg SD QPM
pantoprazole [Protonix] 40 mg Tablet,Delayed Release (Dr/Ec)
40 mg PO DAILY
docusate sodium [Colace] 100 mg Capsule
100 mg PO TID
alum-mag hydroxide-simeth [Mag-Al Plus] 200-200-20 mg/5 mL Suspension
15 ml PO Q4HPRN PRN (Reason: indigestion)
Referrals:
Fabrice Padgett MD [Family Provider] -
Interventions
Interventions:
*Risk Screen - Suicide Last Done: 01/05/24 01:47
*General Assessment Last Done: 01/05/24 01:47
*Neglect/Abuse Screening Last Done: 01/05/24 01:47
*ED COVID-19 Vaccine History Last Done: 01/05/24 01:47
Discharge Date and Time
Print Language: TAJIK
[2024-01-05 03:20] LABS: Troponin I 0.017 ng/ml
[2024-01-05] MEDS: LEVOPHED 250 IV ×2 (03:59→08:54)
[2024-01-05] MEDS: OFIRMEV 100 IV (04:00)
[2024-01-05] MEDS: NSS 2000 IV (04:00)
[2024-01-05] MEDS: MAXIPIME 2000 MG IV ×3 (04:01→20:54)
[2024-01-05 04:18] LABS: B.E. -0.4 mmol/L; HCO3 25.4 mmol/L (21-28); O2 Saturation % 91.1 % (94-98); O2 Therapy 4L NC; PCO2 47 mmHg (32-35); PO2 60 mmHg (83-108); pH 7.34 (7.35-7.45)
[2024-01-05] MEDS: GENTAMICIN 54.5 MG IV (04:48)
--- NOTE | 2024-01-05 04:57 | HPS.HSE ---
Addendum entered and electronically signed by Luli Andrade MD 01/05/24 05:42:
outpatient labs showed Hg 7.5 which is similar to prior value end of last hospitalization; no e/o active bleeding - continue to monitor
Original Note:
Family Physician
-
Family Physician: Fabrice Padgett
Chief Complaint
-
shortness of breath
abnormal outpatient lab
History of Present Illness
Ms. Aydee Baeza is a 73 yo woman, [facility] resident, with hx PAD with right AKA, urinary retention with chronic marie catheter, essential HTN, DM2, obesity, spinal stenosis, recent hospitalization for enterococcus catheter
associated UTI (treated with Vancomycin then Augmentin), sacral ulcer, left intratrochanteric hip fracture treated non-operatively presents to the ER with outpatient labs showing low Hg and appearance of shortness of breath.
Patient currently lethargic and unable to provide further history. Per , she has had cough over past week, shortness of breath. She has chronic marie. She has had abdominal upset and not wanting to eat. Per she has been suffering
for a long time and is ready to go. She is DNR.
Per paperwork she was started on amoxicillin and cipro for UTI today. Paperwork did not come with rest of med list.
Medical History
Past Medical History
Past Medical History: Reports Other
Additional Past Medical History:
PAD
Chronic urinary retention
Chronic anemia
CAD
Essential hypertension
DM2
Obesity
Spinal stenosis
Past Surgical History: Reports Other
Additional Past Surgical History:
Right above-knee amputation
Right femoropopliteal bypass
Right carotid enterectomy
Cataract extraction
Lumbar laminectomy
Spine stimulator implant
Bladder surgery
Social History
Tobacco: Smoker
Alcohol: None
Drug: None
Personal:
Living: Residential
Family History
Family History: Not pertinent
Allergies / Home Medications
Allergies reflects when Allergies were last updated in [employer].
Home Medications with original date entered in [employer]
Allergy/Medication List:
Allergies
Allergy/AdvReac Type Severity Reaction Status Date / Time
No Known Allergies Allergy Verified 01/05/24 01:47
Home Medications
aspirin 81 mg tablet,delayed release (Kartik Low Dose Aspirin) 81 mg PO DAILY Blood Clot Prevention/Tx 10/06/21
gabapentin 300 mg capsule 300 mg PO TID Neurological Condition 10/22/22
acetaminophen 325 mg tablet (Tylenol) 650 mg PO Q4HPRN PRN mild pain/fever 07/14/23
aluminum-mag hydroxide-simethicone 200 mg-200 mg-20 mg/5 mL oral susp (Mag-Al Plus) 15 ml PO Q4HPRN PRN indigestion 07/14/23
atorvastatin 10 mg tablet 10 mg PO HS High Cholesterol 07/14/23
bisacodyl 10 mg rectal suppository 10 mg ND QPM Constipation 07/14/23
docusate sodium 100 mg capsule (Colace) 100 mg PO TID Constipation 07/14/23
pantoprazole 40 mg tablet,delayed release (Protonix) 40 mg PO DAILY Gastrointestinal Issue 07/14/23
sennosides 8.6 mg tablet (senna) 17.2 mg PO DAILY@1200 Constipation 07/14/23
Insulin Glargine In Device 8 units SC HS Diabetes 08/01/23
Lactobac no.2-Bifidobac no.1-S. thermo 112.5 billion cell capsule (Visbiome) 1 cap PO DAILY Supplement 08/01/23
alprazolam 0.25 mg tablet 0.25 mg PO Q8HPRN PRN anxiety 08/01/23
ascorbic acid (vitamin C) 500 mg tablet (Vitamin C) 500 mg PO DAILY Supplement 08/01/23
bisacodyl 5 mg tablet,delayed release (Dulcolax (bisacodyl)) 10 mg PO DAILYPRN PRN constipation 08/01/23
ferrous sulfate 325 mg (65 mg iron) tablet 325 mg PO DAILY Supplement 08/01/23
losartan 25 mg tablet 12.5 mg PO DAILY Blood Pressure 08/01/23
therapeutic multivitamin 1 tab PO DAILY Supplement 08/01/23
collagenase clostridium histo. 250 unit/gram topical ointment (Santyl) 1 applic topical DAILY #30 grams 08/16/23
miconazole nitrate 2 % topical powder (Miconazorb AF) 1 applic topical BID #85 grams 08/16/23
metformin 500 mg tablet 500 mg PO DAILY 11/29/23
amoxicillin 500 mg capsule 500 mg PO Q8H 6 days #17 caps 12/01/23
doxycycline hyclate 100 mg capsule 100 mg PO Q12 #19 caps 12/01/23
polyethylene glycol 3350 17 gram oral powder packet (HealthyLax) 17 g PO BID #14 ea 12/01/23
awaiting home med rec to be complete - paperwork did not come with med rec
Review of Systems
-
History Source: Patient
A 12 point ROS was completed and negative except as noted: Yes
Physical Exam
Vital Signs
Vital Signs
Temp Pulse Resp BP Pulse Ox
102.2 F H 102 23 98/61 97
01/05/24 03:33 01/05/24 04:50 01/05/24 04:50 01/05/24 04:50 01/05/24 04:50
Physical Exam
General: Appears Chronically Ill and Other (lethargic, opens eye briefly to voice )
HEENT: PERRLA
Respiratory: Clear; No Wheezes
Cardiac: S1/S2 and Regular Rhythm
GI: Soft and Non Tender
Musculoskeletal: No Edema
Skin: Warm and Dry; No Rash
Neuro: Sedated
Psych: Other (patient sedated )
Laboratory Results
-
01/05/24 01:54
01/05/24 01:54
Laboratory Results
pH 7.34 (7.35-7.45) L 01/05/24 04:11
pCO2 47 mmHg (32-35) H 01/05/24 04:11
pO2 60 mmHg (83-108) L 01/05/24 04:11
HCO3 25.4 mmol/L (21-28) 01/05/24 04:11
Lactic Acid 3.1 mmol/L (0.7-2.0) H 01/05/24 01:55
Total Bilirubin 1.1 mg/dl (0.2-1.3) 01/05/24 01:54
AST 19 U/L (14-36) 01/05/24 01:54
ALT 13 U/L (0-35) 01/05/24 01:54
Alkaline Phosphatase 309 U/L (38-126) H 01/05/24 01:54
Troponin I 0.017 ng/ml 01/05/24 02:35
Data Reviewed
-
Diagnostic Radiology: Report Reviewed by me
Lab Data: Labs Reviewed by me
Impression/Plan
-
Ms. Aydee Baeza is a 73 yo woman, [facility] long-term resident, with hx PAD with right AKA, urinary retention with chronic marie catheter, essential HTN, DM2, obesity, spinal stenosis, recent hospitalization for enterococcus catheter
associated UTI (treated with Vancomycin then Augmentin), sacral ulcer, left intratrochanteric hip fracture treated non-operatively presents to the ER with outpatient labs showing low Hg and concern for UTI.
Triage VS: T 99.9 up to 102.2, P 111, RR 27, SpO2 94%
Labs: WBC 17.8, Hg 7.5, PLT 327, 31 Bands, Na 132, K+ 3.2, Cl 100, CO2 25, BUN 22, Cr 0.8, Glucose 113, Lactate 3.1
covid negative
UA 2+ leuk esterase
CT: no PE at lobar level. Patchy opacity within right lower lung could reflect infection versus nodule. Patulous esophagus with air-fluid level predisposing patient to aspiration
MAR: Cefepime/Gent, started on Levophed
Septic Shock 2/2 UTI versus Pneumonia
Lactic Acidosis
Bandemia
-flu and covid negative
-CT with area inflammation may be PNA
-UA with inflammation, patient started on cipro/amoxicillin at [facility]
-requiring Levophed in ER; s/p 3L IVF
-admit to ICU
-continue abx: with hx enterococcus will order IV Vanc; continue IV Cefepime and IV Azithro to cover for other urinary pathogens and PNA
-continue Levophed; may need addition vasopressin
-IVF
-F/U cultures
-legionella Ag with association GI sx
-Circle Cutting Saw Operator consult
TME 2/2 above
-NPO
Hypokalemia
-replete
awaiting patient's med rec which wasn't sent with [facility] paper work
DVT PPx lovenox subQ
DNR - stating she was ready to go with recent suffering. He is currently ok with vasopressors and wants to talk to her before withdrawing any care
Total Critical Care Time 50 minutes. I was immediately available to the patient and staff. I personally examined, reviewed labs, diagnostic images/reports, interpretations, treatment plans, discussed patient care with other providers and family
or caregivers (if patient is unable to make decisions), entered orders as appropriate and documented the medical record.
[2024-01-05 05:44] LABS: Magnesium 1.7 mg/dl (1.6-2.3)
[2024-01-05] MEDS: ZITHROMAX INFUSION 250 IV (05:54)
[2024-01-05 06:12] LABS: Urine Bacteria Many (Negative); Urine Red Blood Cell >100 /HPF (0-2); Urine Squamous Cell >30 /LPF (Few); Urine Urothelial Cell >30 /LPF (FEW); Urine White Cell 90-100 /HPF (0-5)
[2024-01-05 06:30] LABS: Lactic Acid 1.4 mmol/L (0.7-2.0)
--- NOTE | 2024-01-05 06:49 | PTCARENOTE ---
Pt received from ED approx 06:15. Pt lethargic, arousable briefly to verbal stimuli. Received on 2L NC, pulse ox decreased to 90%, now on 4L NC with pulse ox 94-95%. SR, HR 80s-90s. Levophed gtt titrated to maintain MAP >65. Levophed gtt at
14mcg/min. Chronic marie, cloudy/fatou urine. Sacral wound-stage 4 redressed with wet to dry.
--- NOTE | 2024-01-05 08:22 | PTCARENOTE ---
0700 patient received in bed. On levophed 14mcg via RT AC. pt lethargic , aroused . RA 98% . rectal temp 98.5. SR 78. BP via left upper arm 138/64; MAP 86. planning to titrate levophed per protocol for MAp 65
--- NOTE | 2024-01-05 08:38 | W.PN.UPDATE ---
Update Note
Progress Note Update
Patient admitted early as of this morning.
admitted for septic shock. Concern for UTI.
on vasopressors and broad-spectrum antibiotics pending culture data.
Patient is awake and oriented. Denies any shortness of breath or chest pain. Heart sound S1 plus S2 heard regular not tachycardic. Saturating well on nasal cannula. No added sounds on anterior auscultation. Abdomen soft.
Right BKA noted. Left leg in external rotation but denies any pain in the hip.
will change the Kitchen catheter. Continue with antibiotics. Get a speech eval and start on a diet.
[2024-01-05 08:51] LABS: Glucose - Point of Care 261 mg/dl (70-99)
[2024-01-05] MEDS: KCL 270 MEQ IV (08:53)
[2024-01-05] MEDS: NOVOLOG FLEXPEN-LOW RESISTANCE 3 UNITS SC ×2 (08:55→13:15)
--- NOTE | 2024-01-05 09:51 | PHA.VAN.IN ---
Assessment
- Assessment
Renal Function: Appears similar to baseline
Concomitant Antimicrobials: cefepime
AUC Dosing Plan
- Dosing Variables
Dosing Weight (kg): 87
Dosing CrCl (ml/min): 70
Vd coefficient (L/kg): 0.7
- Empiric Dosing
Initial / Loading Dose: 2000mg - 01/04 10:49
Maintenance Regimen: Vanc 750mg Q12H starting 01/05 0600
Estimated AUC (mcg*h/mL): 458
Estimated Peak (mcg*h/mL): 27.1
Estimated Trough (mcg/ml): 12.7
Estimated Half Life (H): 10
- Monitoring
No levels ordered at this time: consider levels in next few days
Pharmacokinetics Vancomycin I
- -
Patient Age: 73
Patient Sex: Female
Vancomycin Day #: 1
Indication: Genito-Urinary Tract
Requesting Provider: Dr. Andrade
Pertinent Antimicrobial Allergies:
NKDA
Height / Weight:
Height 5 ft 7 in
Actual Weight 86.636 kg
Pertinent Past Medical History: R. AKA, PAD, DM2
- Vital Signs / Lab Results
Temp Pulse Resp BP Pulse Ox
99.0 F 94 16 115/62 98
01/05/24 07:44 01/05/24 06:36 01/05/24 06:36 01/05/24 06:35 01/05/24 06:38
Lab Results - Hematology
01/05/24
01:54
WBC 17.8 H
Band Neutrophils 31 H
Lab Results - Chemistry
01/05/24
01:54
BUN 22 H
Creatinine 0.8
Albumin 2.2 L
01/05/24 01/05/24
01:55 05:57
Lactic Acid 3.1 H 1.4
Lab Results - Urine
01/05/24
01:55
Urine Nitrite (Reflex) Positive A
Leukocyte Esterase Rfl 2+ A
Urine WBC (Reflex) 90-100 A
Ur Squamous Epith Cells >30
Urine Bacteria (Reflex) Many A
Microbiology Results
01/05/24 05:55 Legionella Urinary Antigen - Final
Urine Negative for Legionella pneumophila Serogroup 1 antigen.
A negative result does not rule out the possiblity of
Legionella infection due to other serogroups or species of
Legionella. Clinical correlation is recommended.
--- NOTE | 2024-01-05 10:43 | CON.INTV ---
Consultation
Consultation Request
Date/Time Consultation Requested: 01/05/2024
Date/Time Consultation Performed: 01/05/2024
Requesting Provider: Dr. Dotson
Performing Provider: Dr. Jamaal Garrison
Reason for Consultation: Septic shock
Medical History
-
History of Present Illness:
73-year-old woman who is a [place] [facility] [place] resident [facility], has history of peripheral arterial disease with right qadve-faj-gkiz amputation, urinary retention on chronic Kitchen, hypertension, type 2 diabetes, obesity, spinal stenosis, history
of UTI from Enterococcus in November 2023. She has a sacral decubitus ulcer. Sent to the emergency room for evaluation for low hemoglobin, shortness of breath and change in mental status.
Patient was lethargic. Able to provide history. Records reviewed.
Noted that she is a DNR.
Currently on Levophed at 12 mics per minute.
Kitchen is in place with concentrated urine.
Underwent a CT of the chest that demonstrated no significant infiltrate.
Past Medical History
Past Medical History: Other (See assessment and plan section)
Social History
Tobacco: Former Smoker
Alcohol: None
Drug: None
Personal:
Living: Prison
Employment: Retired
Family History
Family History: Unable to Obtain
Allergies / Home Medications
Allergies
Allergy/AdvReac Type Severity Reaction Status Date / Time
No Known Allergies Allergy Verified 01/05/24 01:47
Home Medications
�Medication �Instructions �Recorded �Confirmed �Last Taken �Type
aspirin 81 mg tablet,delayed 81 mg PO DAILY Blood Clot 10/06/21 11/29/23 08/01/23 07:25 History
release (Kartik Low Dose Aspirin) Prevention/Tx
gabapentin 300 mg capsule 300 mg PO TID Neurological 10/22/22 11/29/23 08/01/23 07:25 History
Condition
acetaminophen 325 mg tablet 650 mg PO Q4HPRN PRN mild 07/14/23 11/28/23 07/14/23 19:38 History
(Tylenol) pain/fever
aluminum-mag hydroxide-simethicone 15 ml PO Q4HPRN PRN indigestion 07/14/23 11/29/23 Unknown History
200 mg-200 mg-20 mg/5 mL oral susp
(Mag-Al Plus)
atorvastatin 10 mg tablet 10 mg PO HS High Cholesterol 07/14/23 11/29/23 07/31/23 21:18 History
bisacodyl 10 mg rectal suppository 10 mg HI QPM Constipation 07/14/23 11/29/23 07/31/23 17:06 History
docusate sodium 100 mg capsule 100 mg PO TID Constipation 07/14/23 11/29/23 08/01/23 07:25 History
(Colace)
pantoprazole 40 mg tablet,delayed 40 mg PO DAILY Gastrointestinal 07/14/23 11/30/23 08/01/23 07:25 History
release (Protonix) Issue
sennosides 8.6 mg tablet (senna) 17.2 mg PO DAILY@1200 Constipation 07/14/23 11/30/23 08/01/23 12:40 History
Insulin Glargine In Device 8 units SC HS Diabetes 08/01/23 11/30/23 07/31/23 21:22 History
Lactobac no.2-Bifidobac no.1-S. 1 cap PO DAILY Supplement 08/01/23 11/30/23 08/01/23 07:25 History
thermo 112.5 billion cell capsule
(Visbiome)
alprazolam 0.25 mg tablet 0.25 mg PO Q8HPRN PRN anxiety 08/01/23 11/28/23 07/31/23 21:21 History
ascorbic acid (vitamin C) 500 mg 500 mg PO DAILY Supplement 08/01/23 11/29/23 08/01/23 07:25 History
tablet (Vitamin C)
bisacodyl 5 mg tablet,delayed 10 mg PO DAILYPRN PRN constipation 08/01/23 11/29/23 07/19/23 12:19 History
release (Dulcolax (bisacodyl))
ferrous sulfate 325 mg (65 mg 325 mg PO DAILY Supplement 08/01/23 08/01/23 08/01/23 07:25 History
iron) tablet
losartan 25 mg tablet 12.5 mg PO DAILY Blood Pressure 08/01/23 11/30/23 07/27/23 08:20 History
therapeutic multivitamin 1 tab PO DAILY Supplement 08/01/23 11/30/23 08/01/23 07:25 History
collagenase clostridium histo. 250 1 applic topical DAILY #30 grams 08/16/23 Unknown Rx
unit/gram topical ointment (Santyl)
miconazole nitrate 2 % topical 1 applic topical BID #85 grams 08/16/23 11/30/23 Unknown Rx
powder (Miconazorb AF)
metformin 500 mg tablet 500 mg PO DAILY 11/29/23 11/30/23 Unknown History
amoxicillin 500 mg capsule 500 mg PO Q8H 6 days #17 caps 12/01/23 Unknown Rx
doxycycline hyclate 100 mg capsule 100 mg PO Q12 #19 caps 12/01/23 Unknown Rx
polyethylene glycol 3350 17 gram 17 g PO BID #14 ea 12/01/23 Unknown Rx
oral powder packet (HealthyLax)
Review of Systems
-
Unable to Obtain full review of systems at this time due to: Acuity
Vitals / Labs / Diagnostic Testing
Vital Signs
Temp Pulse Resp BP Pulse Ox
99.0 F 94 16 115/62 98
01/05/24 07:44 01/05/24 06:36 01/05/24 06:36 01/05/24 06:35 01/05/24 06:38
Lab Data
01/05/24 01:54
01/05/24 01:54
Laboratory Results
01/05/24
04:11
pH 7.34 L
pCO2 47 H
pO2 60 L
HCO3 25.4
O2 Delivery Level 4l nc
Microbiology
01/05/24 05:55 Urine Legionella Urinary Antigen - Final
Negative for Legionella pneumophila Serogroup 1 antigen.
A negative result does not rule out the possiblity of
Legionella infection due to other serogroups or species of
Legionella. Clinical correlation is recommended.
Diagnostic Testing:
Physical Exam
-
HEENT: Normocephalic
Cardiovascular: S1/S2 and Regular Rhythm
Respiratory: Clear and Non-Labored Respirations
GI: Soft, Distended (Obese) and Other ( Kitchen catheter in place)
Neurology: Other ( lethargic, opening eyes. Following simple commands. Falling back to sleep.)
Skin: Other (Stage IV sacral decubitus ulcer. Foul-smelling.)
General: Comfortable
Assessment
-
73-year-old woman with history of diabetes, amputation, peripheral arterial disease, hypertension, [place] [facility] resident, stage IV decubitus ulcer, came with lethargy and shortness of breath. Found to be hypotensive and septic shock. Transferred
to the critical care unit overnight.
Septic shock: Likely urinary source
Abnormal urinalysis consistent with UTI
Cannot rule out infection of sacral decubitus ulcer which was present on admission. Foul-smelling.
Hypokalemia
Chronic anemia
Conditions present prior admission:
Chronic urinary retention-Kitchen in place
Chronic anemia
Coronary artery disease
Peripheral arterial disease
Essential hypertension
Type 2 diabetes
Obesity
Spinal stenosis
Stage IV sacral decubitus ulcers present on admission
Right ooego-sto-rvol amputation
Right femoral-popliteal bypass
Right carotic endarterectomy
History of laminectomy
Spinal stimulator implant
Prior bladder surgery
Assessment and plan:
Critically ill, on vasopressors. Lethargic. Increased lactic acid on admission.
-
Septic shock
Kitchen urinary output
Renal function is normal
Lactic acid has cleared
Continue to wean down Levophed to maintain mean arterial blood pressure 65 mmHg
Kitchen will be exchanged
-
Patient received adequate fluid resuscitation
Continue maintenance IV fluids for now
-
Broad-spectrum antibiotics started.
Suspect urinary source.
Continue vancomycin and cefepime
Discontinue azithromycin
Wound culture will be obtained
Urine culture and blood cultures pending
-
Patient has foul-smelling stage IV sacral decubitus ulcer
Cannot rule out infection
May need debridement
Wait for wound nurse evaluation
-
Follow H&H. Hemoglobin appears to be stable compared to prior.
No evidence for acute bleeding
-
N.p.o.
Head of the bed elevation
Continue to monitor mental status
-
DVT prophylaxis with Lovenox
-
Glycemic control. Insulin as needed.
Target 140-180.
-
Critical care statement: A total of 33 minutes of critical care time was provided for this patient today. This includes management of unstable vital signs, evaluation of the patient at bedside, reviewing the patient's pertinent medical records
including ventilator settings, arterial blood gases, radiographs, microbiology, laboratory evaluations and discussion with primary team, critical care nursing, and respiratory therapy.
[2024-01-05] MEDS: VANCOCIN 540 MG IV (10:49)
--- NOTE | 2024-01-05 10:59 | PTOTSP ---
Dysphagia Evaluation
Suspect oral and pharyngeal stages of swallowing WFL based on clinical bedside swallowing evaluation. Patient denied/past present dysphagia. A single delayed cough was noted after all trials completed. Patient endorsed frequent coughing in
absence of PO prior to this admission.
Recommend regular, thin liquid diet. If concerned for aspiration given CT of Chest this admission ('patchy opacity at right lung base'), could consider video swallow study, though low suspicion for top-down aspiration at this time.
Recommend:
1. Regular, Thin Liquids
2. Medications as best tolerated
3. General aspiration and reflux precautions
4. No further dysphagia therapy warranted at this time.
--- NOTE | 2024-01-05 11:14 | WOUNDNOTE ---
SACRUM (to bone)
--- NOTE | 2024-01-05 11:14 | WOUNDNOTE ---
SACRUM (to bone)
--- NOTE | 2024-01-05 11:20 | WOUNDNOTE ---
[facility] RN note: Patient admitted with septic shock, UTI, decreased po. Patient admitted from [facility]. Patient confirmed previously she has an air mattress at [facility]. Patient seen at [facility] 12/20/23, current wound care is [facility] wet to dry.
See H&P for complete history.
PMH: R AKA, Kitchen for retention, PAD, HTN, DM, obesity, spinal stenosis, recent hospital stay, UTI, sacral ulcer, L hip fracture (non operative), R fem pop bypass, lumbar laminectomy, spine stimulator implant, bladder surgery, smoker.
Wound Location and type/assessment: Patient admitted with: large black necrotic stage 4 to bone pressure injury with fowl odor and surrounding erythema. Large amount of singh yellow drainage.
Appetite: Fair. She stated she eats 50% of meals.
Pressure redistribution devices in place: [employer] Max air bed. She assists with turning. [employer] Lite heel relief boot.
Plan: Sacral dressing/packing changed. Patient turned with help from MARII Brantley. L heel off bed with air chair cushion.
Updated and confirmed orders with Dr. Garrison who plans to consult general surgery for sacral debridement. Discussed with MARII Brantley.
Care plan to be updated and will follow as needed.
--- NOTE | 2024-01-05 13:05 | CM ---
CM following re: discharge planning.
Reviewed pt's chart, met with pt.
Pt is a 73 year old female, admitted with primary dx of Septic shock.
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 Pt reports she has 2 supportive children. Pt reports she is w/c bound and
long-term staff provides all necessary care to the pt.
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
D/C plan: return back to [facility] for a chcf care.
CM will follow to assist pt with discharge to [facility] for a chcf care.
[2024-01-05 13:21] LABS: Glucose - Point of Care 290 mg/dl (70-99)
[2024-01-05] MEDS: STERILE WATER FOR INJECTION 10 ML IV ×2 (14:00→20:54)
[2024-01-05 14:29] LABS: INR 1.72; PT 20.3 Sec (11.4-14.6)
[2024-01-05 14:30] LABS: APTT 26.7 Sec (23.4-35.0)
--- NOTE | 2024-01-05 15:20 | PTCARENOTE ---
AAO x3 . Pt in bed HOB elevated. Chronic Indwelling Kitchen #16 replaced per order, draining cloudy yellow urine. Rectal temp 98.0. Levophed at 4mcg via RT AC # 20; Patient unable to maintain MAP of 65 without Levophed. NSS at Left AC. Wound care tx
to sacrum done by wound care nurse. pt repositioned via pillow and air cushion.
--- NOTE | 2024-01-05 16:02 | W.PN.UPDATE ---
Update Note
Progress Note Update
Hyperglycemia.
Insulin greater than 200.
Start insulin drip.
-
Currently on Levophed 4 mics per minute. Continue to wean down as able.
-
Discussed with wound care will need surgical consultation. May need debridement.
[2024-01-05] MEDS: NOVOLIN R 5 UNITS IV (16:30)
[2024-01-05] MEDS: NOVOLIN R INSULIN INFUSION 100 IV (16:34)
[2024-01-05 16:54] LABS: Glucose - Point of Care 278 mg/dl (70-99)
[2024-01-05 17:37] LABS: Glucose - Point of Care 231 mg/dl (70-99)
[2024-01-05] MEDS: NOVOLOG FLEXPEN 4 UNITS SC (17:56)
[2024-01-05 18:54] LABS: Glucose - Point of Care 203 mg/dl (70-99)
[2024-01-05] MEDS: LOVENOX 40 MG SC (19:31)
[2024-01-05 19:48] LABS: Glucose - Point of Care 173 mg/dl (70-99)
[2024-01-05 20:42] LABS: Glucose - Point of Care 155 mg/dl (70-99)
[2024-01-05] MEDS: DAKIN'S SOLUTION 0.125% 1/4 STRENGTH 473 ML TOPICAL (20:54)
[2024-01-05 21:47] LABS: Glucose - Point of Care 131 mg/dl (70-99)
[2024-01-05 22:40] LABS: Glucose - Point of Care 125 mg/dl (70-99)
[2024-01-05 23:43] LABS: Glucose - Point of Care 113 mg/dl (70-99)
[2024-01-06] VITALS (35 sets, daily range): BP systolic 100–134; BP diastolic 36–93; BMI 31.1
[2024-01-06] MEDS: LEVOPHED 250 IV (01:33)
[2024-01-06 01:43] LABS: Glucose - Point of Care 113 mg/dl (70-99)
[2024-01-06 03:43] LABS: Glucose - Point of Care 82 mg/dl (70-99)
[2024-01-06] MEDS: MAXIPIME 2000 MG IV (04:33)
[2024-01-06] MEDS: STERILE WATER FOR INJECTION 10 ML IV (04:33)
[2024-01-06] MEDS: NSS 1000 IV (04:34)
[2024-01-06 05:03] LABS: % Basophils 0.3 % (0-2); % Eosinophils 1.6 % (0-6); % Immature Granulocytes 1.7 % (0-0.5); % Lymphocytes 6.4 % (20.5-51.1); % Monocytes 6.6 % (1.7-9.3); % Neutrophils 83.4 % (42.2-75.2); Absolute Basophils 0.1 10^3/uL (0-0.2); Absolute Eosinophils 0.4 10^3/uL (0-0.7); Absolute Immature Granulocytes 0.4 10^3/uL (0-0.05); Absolute Lymphocytes 1.5 10^3/uL (1.2-3.4); Absolute Monocytes 1.5 10^3/uL (0.1-0.6); Absolute Neutrophils 18.9 10^3/uL (1.4-6.5); Hematocrit 21.9 % (37.0-47.0); Mean Corp Hgb Conc. 30.6 g/dL (33.0-37.0); Mean Corpuscular Hgb 23.4 pg (27.0-31.0); Mean Corpuscular Volume 76.6 fL (81.0-99.0); Mean Platelet Volume 9.4 fL (7.4-10.4); Nucleated Red Blood Cells % 0 %; Platelet Count 326 10^3/uL (130-400); Red Blood Cell Count 2.86 10^6/uL (4.20-5.40); Red Cell Dist. Width 17.4 % (11.5-14.5); White Blood Cell Count 22.6 10^3/uL (4.8-10.8)
[2024-01-06 05:12] LABS: Hemoglobin 6.7 g/dL (12.0-16.0)
--- NOTE | 2024-01-06 05:27 | PTCARENOTE ---
Initial assessment as documented. Pt Ox2-3 and forgetful at times. Pleasant and cooperative. Hgb=6.7 on AM labs---I-CHART CHANGER unable to reach for blood consent.
Safe environment maintained, call rouse within reach. Pt repositioned q2h. Sacral wound care completed as ordered. Insulin gtt continues for glycemic protocol. Levophed gtt titrated off, MAP maintained above 65.
[2024-01-06 05:32] LABS: ALT (SGPT) 25 U/L (0-35); AST (SGOT) 37 U/L (14-36); Albumin 1.8 g/dl (3.5-5.0); Alkaline Phosphatase 255 U/L (38-126); Blood Urea Nitrogen 22 mg/dl (7-17); Calcium 8.7 mg/dl (8.4-10.2); Carbon Dioxide 25 mmol/L (22-30); Chloride 107 mmol/L (98-107); Estimated Creatinine Clearance 80 ml/min; Glucose 73 mg/dl (70-99); Magnesium 1.9 mg/dl (1.6-2.3); Potassium 3.7 mmol/L (3.5-5.1); Sodium 132 mmol/L (135-145); Total Bilirubin 0.3 mg/dl (0.2-1.3); Total Protein 4.6 g/dl (6.3-8.2); eGFR > 60.00
[2024-01-06 05:45] LABS: Glucose - Point of Care 91 mg/dl (70-99)
[2024-01-06] MEDS: VANCOCIN 150 IV (05:56)
[2024-01-06] MEDS: NOVOLOG FLEXPEN 4 UNITS SC (07:23)
[2024-01-06 07:30] LABS: Glucose - Point of Care 114 mg/dl (70-99)
[2024-01-06 08:13] LABS: Glucose - Point of Care 108 mg/dl (70-99)
--- NOTE | 2024-01-06 08:30 | PTCARENOTE ---
pt awake and alert, pleasant , forgetful at times , poor historian , pt continues on glycemic protocol , pt hemoglobin 6.7 , pt will be in later to discuss about blood transfusion consent ,NSR on monitor BP 106/49 off of Levophed since 299
, chronic Kitchen cath draining fatou urine
--- NOTE | 2024-01-06 08:44 | W.PN.HOSP.TC ---
Addendum entered and electronically signed by Wil Dotson MD 01/06/24 17:45:
Based on data from admission , acute hypoxic respiratory failure was present at admission.
Original Note:
Today's Communication/Plan
-
Consult ID.
Continue with cefepime.
DC IV vancomycin.
Transfer out of ICU to [facility]
Assessment / Plan
Assessment / Plan
Ms. Aydee Baeza is a 73 yo woman, [facility] resident, with hx PAD with right AKA, urinary retention with chronic marie catheter, essential HTN, DM2, obesity, spinal stenosis, recent hospitalization for enterococcus catheter
associated UTI (treated with Vancomycin then Augmentin), sacral ulcer, left intratrochanteric hip fracture treated non-operatively presents to the ER with outpatient labs showing low Hg and concern for UTI.
CT: no PE at lobar level. Patchy opacity within right lower lung could reflect infection versus nodule. Patulous esophagus with air-fluid level predisposing patient to aspiration
Septic Shock with bacteremia and suspected urinary source
Positive UA-pending urine culture. Chronic Marie catheter in situ.
Gram-negative bacilli bacteremia.
Large sacral decubitus ulcer concerning for soft tissue infection
Resolved shock. Off of vasopressors.
Improved clinically.
Continue with cefepime. Hold vancomycin.
Await surgical input regarding the sacral decubitus ulcer.
Consult ID.
Repeat blood cultures.
TME 2/2 above
Resolved.
Severe anemia-microcytic. Patient with chronic anemia. No obvious external bleeding. Check heme test stools. Check iron studies.
Discussed with patient about blood transfusion-patient is going to think about it and sign. She normally signs for all her procedures and tests.
Diabetes mellitus type 2 with hyperglycemia-currently on insulin drip per ICU protocol. Diabetic FUSION JUNCTURE GRINDER consulted. Transition to subcutaneous insulin.
Chronic hyponatremia-continue to follow
Large Black necrotic stage IV sacral decubitus ulcer to bone secondary pressure. Has follow-up odor and surrounding erythema. General surgery consulted for evaluation of need for debridement. Continue with wound care.
DVT PPx lovenox subQ
DNR
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
Discussed with the on the phone and updated the improved clinical picture, treatments and transfer out of ICU.
Total time spent on today's encounter was 52 minutes which included time spent in counseling the patient/family regarding diagnosis and treatment plan as listed above, goals of care, and symptom management. Case was discussed with nursing staff,
specialists, . All labs and imaging personally reviewed by me. Remainder the time spent in detailed review of previous records, lab data, imaging, and other medical provider documentation.
Anticipated Discharge: > 48 hours
Subjective/Interval History
-
Date of Service: January 06, 2024
Patient is improved. Off vasopressors. Having her breakfast.
Feels the same as before.
Voicing no specific complaints.
Bit weak.
Denies chest pain or shortness of breath.
Objective Data
-
Labs:
Laboratory Results
01/06/24
04:41
WBC 22.6 H
Hgb 6.7 L*
Hct 21.9 L
Plt Count 326
Sodium 132 L
Potassium 3.7
Chloride 107
Carbon Dioxide 25
BUN 22 H
Creatinine 0.7
Glucose 73
Calcium 8.7
Total Bilirubin 0.3
AST 37 H
ALT 25
Alkaline Phosphatase 255 H
Vital Signs:
Vital Signs
Temp Pulse Resp BP Pulse Ox
98.8 F 79 22 117/49 95
01/06/24 07:39 01/06/24 05:15 01/06/24 05:15 01/06/24 05:00 01/06/24 05:15
I&O
01/05/24 01/06/24 01/07/24
06:59 06:59 06:59
Intake Total 3661.3 / 3661.3
Output Total 800 / 800 1275 / 1275
Balance -800 / -800 2386.3 / 2386.3
Review of Systems
-
Constitutional: Denies Fever or Chills
Respiratory: Denies Cough
Cardiac: Denies Chest Pain
Abdomen/GI: Denies Abdominal Pain, Nausea or Vomiting
Neuro: Denies Dizzy
Physical Exam
-
General: No Apparent Distress
HEENT: Moist Mucous Membranes
Respiratory: Clear to Auscultation
Cardiac: Regular Rhythm and S1/S2
GI: Soft, Nontender, Nondistended and Normal Bowel Sounds
Neuro: AO x 3
Psych: Calm; Negative Confused or Agitated
Data Reviewed
-
Labs: Labs Reviewed by me
[2024-01-06 08:59] LABS: Glycohemoglobin (HgbA1c) 6.4 % (4.0-5.6)
[2024-01-06 09:42] LABS: Glucose - Point of Care 141 mg/dl (70-99)
[2024-01-06 10:44] LABS: Glucose - Point of Care 141 mg/dl (70-99)
[2024-01-06 10:44] LABS: Reticulocyte Count 1.7 % (0.4-2.8)
--- NOTE | 2024-01-06 10:45 | PN.DE.MGMTRT ---
Insulin Management
- -
01/06/2024 Diabetes Management Consult
Patient admitted from [facility] due to abnormal labs, Hgb low, UTI. PMH HTN, HLD, type 2 diabetes 20 years, s/p AKA, chronic marie, stage 4 sacral wound. Prior to admission chart indicates patient was receiving 8 units lantus @ hs with
metformin 500 mg daily. A1C 6.4%, cr .7, eGFR > 60.
Patient is awake and alert but unsure of medications she took for diabetes. She states her primary doctor has managed her diabetes.
Glucose has been > 200, glycemic protocol insulin infusion started yesterday. Patient requiring ~ 4 units of insulin per hour. She is eating meals.
Will transition to lantus 8 units in AM, first dose now, (insulin drip off 1 1/2 hours after lantus administered) with novolog 3 units AC and moderate corrective insulin. Will resume metformin 500 mg BID first dose with dinner.
Discussed with patients nurse.
Diabetes History
- -
Type of Diabetes: 2 requiring insulin
Pre-Admission Diabetes Regimen
01/06/24
04:41
Creatinine 0.7
Lab Results
Hemoglobin A1c 6.4 % (4.0-5.6) H 01/06/24 04:41
Insulin Pump Settings
IP Diabetes Regimen
01/05/24 01/05/24 01/05/24
13:09 16:33 17:25
Glucose
POC Glucose 290 H 278 H 231 H
01/05/24 01/05/24 01/05/24
18:36 19:35 20:30
Glucose
POC Glucose 203 H 173 H 155 H
01/05/24 01/05/24 01/05/24
21:35 22:28 23:32
Glucose
POC Glucose 131 H 125 H 113 H
01/06/24 01/06/24 01/06/24
01:32 03:31 04:41
Glucose 73
POC Glucose 113 H 82
01/06/24 01/06/24 01/06/24
05:34 07:18 08:02
Glucose
POC Glucose 91 114 H 108 H
01/06/24 01/06/24
09:31 10:33
Glucose
POC Glucose 141 H 141 H
Meal type: Lunch
Amount consumed: 100%
Patient Education
[2024-01-06] MEDS: LANTUS 0.0800000000000000017 UNITS SC (11:01)
--- NOTE | 2024-01-06 11:05 | CON.GS ---
Addendum entered and electronically signed by Nestor Guerra MD 01/06/24 14:59:
I saw and examined the patient independently.
The Machine Oiler's note was reviewed and I agree with the note, assessment and plan except where noted below.
Comment: This is a 73-year-old female with a multiple medical comorbidities including sacral decubitus ulcer with underlying osteomyelitis who presents with sepsis likely from her sacral infection as well as a possible UTI. The patient is not
particularly interested in any invasive interventions and given that debridement would likely still leave her with a very large wound that would likely not heal she is not interested in surgery at this time. She would like instead to focus on pain
control and being comfortable.
Please establish goals of care, appears the patient is interested in pursuing hospice/comfort care.
No acute surgery intervention warranted at this time.
Surgery will sign off, please call with any questions or concerns.
Original Note:
Consultation
-
Date/Time Consultation Requested: 01/06/24 1603
Requesting Provider: Bladimir
Reason for Consultation: Infected Sacral debubitus ulcer
Medical History
-
Chief Complaint: wound
History of Present Illness:
Ms Baeza is a 73 yo female with a h/o PAD with right AKA (bed/WC bound), DM, chronic sacral decubitus ulcer and chronic Marie who resides at [facility] and presented for SOB and altered mentation from baseline and is currently in the ICU
for management of sepsis seen in consult today for evaluation of sacral decub. She is known to our service from a prior and similar presentation in November. The wound is covered with eschar/necrotic tissue and is foul smelling. CT imaging in November was
without evidence of osteomyelitis at this time although an incidental left hip fracture was found which was managed nonoperatively. Wound care is following for assistance with local care. She is currently oriented x3 and offering history and
engaging in conversation about her headhunter care goals stating 'this is no way to live'. She is currently discussing palliative care options with her and two children.
Past Medical History
Past Medical History: CAD, NIDDM and Other (chronic urinary retention with APOLINAR marie)
Past Surgical History: Orthopedic (R AKA, spinal stimulator implant, lumbar laminectomy) and Other (Right fem-pop bypass, right CEA, cataracts)
Social History
Tobacco: Smoker
Alcohol: None
Living: [facility]
Family History
Family History: Reviewed & Not Pertinent
Allergies / Home Medications
Allergy/AdvReac Type Severity Reaction Status Date / Time
No Known Allergies Allergy Verified 01/05/24 01:47
�Medication �Instructions �Recorded �Confirmed �Type
aspirin 81 mg tablet,delayed 81 mg PO DAILY Blood Clot 10/06/21 11/29/23 History
release (Kartik Low Dose Aspirin) Prevention/Tx
gabapentin 300 mg capsule 300 mg PO TID Neurological 10/22/22 11/29/23 History
Condition
acetaminophen 325 mg tablet 650 mg PO Q4HPRN PRN mild 07/14/23 11/28/23 History
(Tylenol) pain/fever
aluminum-mag hydroxide-simethicone 15 ml PO Q4HPRN PRN indigestion 07/14/23 11/29/23 History
200 mg-200 mg-20 mg/5 mL oral susp
(Mag-Al Plus)
atorvastatin 10 mg tablet 10 mg PO HS High Cholesterol 07/14/23 11/29/23 History
bisacodyl 10 mg rectal suppository 10 mg VT QPM Constipation 07/14/23 11/29/23 History
docusate sodium 100 mg capsule 100 mg PO TID Constipation 07/14/23 11/29/23 History
(Colace)
pantoprazole 40 mg tablet,delayed 40 mg PO DAILY Gastrointestinal 07/14/23 11/30/23 History
release (Protonix) Issue
sennosides 8.6 mg tablet (senna) 17.2 mg PO DAILY@1200 Constipation 07/14/23 11/30/23 History
Insulin Glargine In Device 8 units SC HS Diabetes 08/01/23 11/30/23 History
Lactobac no.2-Bifidobac no.1-S. 1 cap PO DAILY Supplement 08/01/23 11/30/23 History
thermo 112.5 billion cell capsule
(Visbiome)
alprazolam 0.25 mg tablet 0.25 mg PO Q8HPRN PRN anxiety 08/01/23 11/28/23 History
ascorbic acid (vitamin C) 500 mg 500 mg PO DAILY Supplement 08/01/23 11/29/23 History
tablet (Vitamin C)
bisacodyl 5 mg tablet,delayed 10 mg PO DAILYPRN PRN constipation 08/01/23 11/29/23 History
release (Dulcolax (bisacodyl))
ferrous sulfate 325 mg (65 mg 325 mg PO DAILY Supplement 08/01/23 08/01/23 History
iron) tablet
losartan 25 mg tablet 12.5 mg PO DAILY Blood Pressure 08/01/23 11/30/23 History
therapeutic multivitamin 1 tab PO DAILY Supplement 08/01/23 11/30/23 History
collagenase clostridium histo. 250 1 applic topical DAILY #30 grams 08/16/23 Rx
unit/gram topical ointment (Santyl)
miconazole nitrate 2 % topical 1 applic topical BID #85 grams 08/16/23 11/30/23 Rx
powder (Miconazorb AF)
metformin 500 mg tablet 500 mg PO DAILY 11/29/23 11/30/23 History
amoxicillin 500 mg capsule 500 mg PO Q8H 6 days #17 caps 12/01/23 Rx
doxycycline hyclate 100 mg capsule 100 mg PO Q12 #19 caps 12/01/23 Rx
polyethylene glycol 3350 17 gram 17 g PO BID #14 ea 12/01/23 Rx
oral powder packet (HealthyLax)
Review of Systems
-
History Source: Patient
All other systems: Negative unless noted
A 10 point review of systems was completed, and was negative except as per HPI.
Physical Exam
Vital Signs
Temp Pulse Resp BP Pulse Ox
98.8 F 79 22 117/49 95
01/06/24 07:39 01/06/24 05:15 01/06/24 05:15 01/06/24 05:00 01/06/24 05:15
01/05/24 01/06/24 01/07/24
06:59 06:59 06:59
Actual Weight 86.636 kg 90.083 kg
Body Mass Index (BMI) 31.1
Lab Results
01/06/24 04:41
01/06/24 04:41
WBC 22.6 10^3/uL (4.8-10.8) H 01/06/24 04:41
Hgb 6.7 g/dL (12.0-16.0) L* 01/06/24 04:41
Hct 21.9 % (37.0-47.0) L 01/06/24 04:41
Plt Count 326 10^3/uL (130-400) 01/06/24 04:41
Abs Immat Gran (auto) 0.4 10^3/uL (0-0.05) H 01/06/24 04:41
Neutrophils % 83.4 % (42.2-75.2) H 01/06/24 04:41
Physical Exam
General: No Apparent Distress
HEENT: Moist Mucous Membranes
Respiratory: Non Labored Respirations
GI: Soft, Non Tender and Non Distended
Skin: Warm
Neuro: Awake, Alert and AO x 3
Psych: Calm
Data Reviewed
-
Labs: Labs Reviewed by me, Discussed with Physician, Discussed with Nurse and Discussed with Patient
Old Records: Reviewed
Assessment / Plan
-
Ms Baeza is a 73 yo female with a h/o PAD with right AKA (bed/WC bound), DM, chronic sacral decubitus ulcer and chronic marie who resides at [facility] and presented for SOB and altered mentation from baseline and is currently in the ICU
for management of sepsis seen in consult today for evaluation of sacral decub. The wound is covered with eschar/necrotic tissue and is foul smelling. CT imaging in November was without evidence of osteomyelitis.
Offered surgical debridement of wound, although given its size and chronicity, surgery will not be curative and she will likely have a long recovery and the wound may never fully heal. She declines surgery for debridement at this time. She is
considering palliative care stating that 'this is no way to live'
--Wound care nurse following for local care
[2024-01-06 11:19] LABS: Iron 27 ug/dl (37-170)
[2024-01-06 11:32] LABS: Percent Saturation 16 % (20-50); Total Iron Binding Capacity 161 ug/dl (265-497)
--- NOTE | 2024-01-06 11:34 | CON.ID ---
Consultation
-
Date/Time Consultation Requested: 01/06/2024 09:05
Date/Time Consultation Performed: 01/06/2024 1129
Requesting Provider: Dr. Dotson
Performing Provider: Dr. Barrios
Reason for Consultation: Septic shock
Chief Complaint / Past History
History of Present Illness
Aydee Baeza is a 73-year-old female being evaluated at the request of Dr. Dotson in regards to septic shock. History is obtained from chart review, along with patient interview.
The patient has a significant past medical history of diabetes mellitus and resides at a local intermediate ([facility]). She additionally has a history of right AKA, urinary retention with chronic Kitchen catheter. She presented to the
emergency room last evening secondary to significant anemia and shortness of breath. According to reviewed records she has had progressive shortness of breath over the past week. Additionally nausea was reported, but no vomiting. Reviewed records
indicates she recently was started on amoxicillin and ciprofloxacin for a urinary tract infection.
In the emergency room, she was found to be hypotensive and was started on vasopressor therapy. She additionally was found to have leukocytosis.
Past History
Additional Past Medical History:
PAD
CAD
DM type II
Chronic urinary retention
Chronic anemia
HTN
Obesity
Spinal stenosis
Additional Past Surgical History:
Right above-knee amputation
Right femoropopliteal bypass
Right carotid enterectomy
Cataract extraction
Lumbar laminectomy
Spine stimulator implant
Bladder surgery
Allergy History:
No Known Allergies Allergy (Verified 01/05/24 01:47)
Medications Reviewed: Yes
Current Antibiotics:
Cefepime 2 g IV every 8 hours
Vancomycin (DC'd)
Social History
Tobacco: Non-Smoker
Alcohol: None
Drug: None
Personal:
Living: Intermediate
Employment: Disabled
Family History
Family History: Not Pertinent
Review of Systems
Vital Signs
Temp Pulse Resp BP Pulse Ox
98.8 F 79 22 117/49 95
01/06/24 07:39 01/06/24 05:15 01/06/24 05:15 01/06/24 05:00 01/06/24 05:15
Physical Exam
Physical Exam
Constitutional: No Acute Distress, Comfortable, Chronically Ill, Non-toxic and Obese
Head: Normocephalic
Eyes: Pupils Equal, Pupils Round, No Conjunctival Hemorrhage and Sclera Anicteric
Oral: No Thrush and No Ulcers
Cardiovascular: S1/S2; Negative S3/S4 or Murmur
Pulmonary: Clear; Negative Wheezes, Rales or Rhonchi
Gastrointestinal: Soft, Non Distended and Normal Bowel Sounds
Genito-Urinary: Kitchen and Turbid Urine
Extremities: Other (right AKA)
Wound: Other (extreamly large sacral decubidi with marked gangrene, slough, foul odor and tunneling.)
Neurological: Awake, Alert and Oriented
Psychological: Calm
Lab / Diagnostic Study Results
01/06/24 04:41
01/06/24 04:41
Abs Immat Gran (auto) 0.4 10^3/uL (0-0.05) H 01/06/24 04:41
Absolute Neuts (auto) 18.9 10^3/uL (1.4-6.5) H 01/06/24 04:41
Absolute Lymphs (auto) 1.5 10^3/uL (1.2-3.4) 01/06/24 04:41
Absolute Monos (auto) 1.5 10^3/uL (0.1-0.6) H 01/06/24 04:41
Absolute Basos (auto) 0.1 10^3/uL (0-0.2) 01/06/24 04:41
Total Counted 100 01/05/24 01:54
Immature Gran % 1.7 % (0-0.5) H 01/06/24 04:41
Neutrophils % 83.4 % (42.2-75.2) H 01/06/24 04:41
Lymphocytes % 6.4 % (20.5-51.1) L 01/06/24 04:41
Monocytes % 6.6 % (1.7-9.3) 01/06/24 04:41
Eosinophils % 1.6 % (0-6) 01/06/24 04:41
Basophils % 0.3 % (0-2) 01/06/24 04:41
Abs Neuts (Manual) 17.6 10^3/uL (1.4-6.5) H 01/05/24 01:54
Segmented Neutrophils 68 % (42-75) 01/05/24 01:54
Band Neutrophils 31 % (0-3) H 01/05/24 01:54
Lymphocytes (Manual) 1 % (20-51) L 01/05/24 01:54
PT 20.3 Sec (11.4-14.6) H 01/05/24 14:02
INR 1.72 01/05/24 14:02
Lactic Acid 1.4 mmol/L (0.7-2.0) 01/05/24 05:57
Ur Squamous Epith Cells >30 /LPF (Few) 01/05/24 01:55
Microbiology Results
Micro:
01/05/24 01:54 Blood Culture - Preliminary
Blood/Venous Positive culture in progress
Gram Stain - Preliminary
01/05/24 01:54 Blood Culture - Preliminary
Blood/Venous Positive culture in progress
Gram Stain - Preliminary
01/05/24 14:03 MRSA Screen - Pending
Nose
01/05/24 05:55 Legionella Urinary Antigen - Final
Urine Negative for Legionella pneumophila Serogroup 1 antigen.
A negative result does not rule out the possiblity of
Legionella infection due to other serogroups or species of
Legionella. Clinical correlation is recommended.
01/05/24 01:55 Urine Culture - Pending
Urine
--> SACRAL AREA <--
Assessment / Plan
Clinical sepsis
Bacteremia
Large, unstageable sacral decubiti (appears to be Stage IV)
Leukocytosis
Anemia
PAD
CAD
DM type II
Chronic urinary retention
Chronic anemia
HTN
Obesity
Spinal stenosis
Recommendations:
Continue cefepime.
Continue vancomycin (dosed per pharmacy).
Add metronidazole for anaerobic coverage.
Repeat blood cultures to assess clearance. Await further culture data to guide antimicrobial selection and potential de-escalation.
Surgical consultation notes reviewed. At this point in time she has declined surgery/debridement, and potentially is discussing palliative care / hospice.
Follow white count temperature curve.
Given current clinical presentation, overall prognosis is extremely guarded.
UPDATE:
Spoke with patient's son and , who at this point in time understand the gravity of the situation.
They note that she would never want to live like this, and have requested hospice.
Will place order for hospice.
Once finalized, will D/C further abx.
Care Review
Plan reviewed with: Physician (Critical Care)
--- NOTE | 2024-01-06 11:34 | PN.CDI ---
CDI
- -
CDI:
Physician Documentation Request
Admit Date: 01/05/24 05:47
Dear Doctor Mauri,
Clinical Indicators:
Patient admitted with septic shock.
01/04 ED report, 'Mild to moderate resting tachypnea is noted... Discharge Problem: Acute hypoxic respiratory failure.'
02 requirement on admission:
01/05/24
01:47
Nasal Cannula flow liters per minute 6
ABG :
01/05/24
04:11
pH 7.34 L
pCO2 47 H
pO2 60 L
HCO3 25.4
ABG O2 Sat (Measured) 91.1 L
O2 Delivery Level 4l nc
Please clarify which of the following accurately represents the patient's respiratory status:
Acute hypoxic respiratory failure
Hypoxia only
Other, please specify
Additional information for Respiratory Failure:
Recognized criteria for Respiratory Failure (Source: [facility] Hospitalist Jul 2013)
ABGs: (1 or more) Symptoms Please indicate type if known
1. p02 <60 or RA SPO2 <91% on RA 1. Tachypnea, SOB, dyspnea Hypoxic
2. pCO2 50 and pH <7.35 2. Use of accessory muscles Hypercapnic
3. pO2 decrease of pCO2 increase by 3. Pallor or cyanosis Hypoxic and Hypercapnic
10 mmHg from baseline if known 4. Anxiety or restlessness Unable to determine
5. Unable to speak in full sentences
Supplemental O2 of > 40% (5LPM) Intubation is not required
Use of terms such as suspected, likely, concern for, or probable (associated with a specific diagnosis that is being evaluated, monitored, or treated as if it exists) are acceptable and can be coded in the inpatient setting, when documented at the
time of discharge.
Thank you,
ADELIA Mosley RN
CDI Specialist
available via tiger text
Please use your independent medical judgment in providing your response.
[2024-01-06] MEDS: DAKIN'S SOLUTION 0.125% 1/4 STRENGTH 473 ML TOPICAL (12:00)
--- NOTE | 2024-01-06 12:12 | PHA.VAN.FU ---
Vancomycin Assessment / Plan
- Assessment
Renal Function: Stable
WBC's are: Trending Up
In the past 24 hrs, patient has been: Afebrile
Concomitant Antimicrobials: cefepime, metronidazole
- Dosing Plan
Continue: Vanc 750mg Q12H
- Monitoring Plan
No level(s) ordered at this time: consider levels in next few days
- Follow Up
Pharmacy will continue to follow.
Vancomycin Follow UP
- -
Patient Age: 73
Patient Sex: Female
Vancomycin Day #: 2
Indication: Skin And Soft Tissue
Requesting Provider: Dr. Andrade / Denis
Pertinent Antimicrobial Allergies:
NKDA
Height / Weight:
Height 5 ft 7 in
Actual Weight 90.083 kg
Pertinent Past Medical History: R. AKA, PAD, DM2
- Vital Signs / Lab Results
Temp Pulse Resp BP Pulse Ox
99.2 F 79 22 117/49 95
01/06/24 11:57 01/06/24 05:15 01/06/24 05:15 01/06/24 05:00 01/06/24 05:15
Lab Results - Hematology
01/05/24 01/06/24
01:54 04:41
WBC 17.8 H 22.6 H
Band Neutrophils 31 H
Lab Results - Chemistry
01/05/24 01/06/24
01:54 04:41
BUN 22 H 22 H
Creatinine 0.8 0.7
Estimated Creat Clear 80
Albumin 2.2 L 1.8 L
01/05/24 01/05/24
01:55 05:57
Lactic Acid 3.1 H 1.4
Microbiology Results
01/05/24 01:54 Blood Culture - Preliminary
Blood/Venous Positive culture in progress
Gram Stain - Preliminary
01/05/24 01:54 Blood Culture - Preliminary
Blood/Venous Positive culture in progress
Gram Stain - Preliminary
01/05/24 05:55 Legionella Urinary Antigen - Final
Urine Negative for Legionella pneumophila Serogroup 1 antigen.
A negative result does not rule out the possiblity of
Legionella infection due to other serogroups or species of
Legionella. Clinical correlation is recommended.
[2024-01-06 12:39] LABS: Glucose - Point of Care 99 mg/dl (70-99)
--- NOTE | 2024-01-06 12:45 | CM ---
CM following re:discharge planning.
Reviewed pt's chart, met with pt. Pt's Sumanth [phone] and son Roger [phone] at bedside.
According to MD pt requested hospice care.
CM discussed it with pt and her family and both requested pt will not return back to [facility]. Both pt and her family agree with hospice care and they requested hospice. A referral to hospice made.
Both pt and her family requested [facility] with hospice care or home hospice.
A referral to [facility] made, spoke to senior medical director Ramya and she stated they are aware of pt's previous referral and they will be able to accept the pt with hospice care as early as Tuesday. A referral to [facility] made.
D/C plan: hospice care with hospice at [facility] or at home.
CM will follow with discharge plan updates as hospitalization progresses
[2024-01-06] MEDS: NOVOLOG FLEXPEN SC (12:48)
[2024-01-06] MEDS: MAXIPIME IV (12:48)
--- NOTE | 2024-01-06 13:51 | W.PN.INTV ---
Today's Communication / Plan
Recommendations
Focus on comfort
Hospice has been consulted
Once finalized, discontinue medications
Transfer to [facility].
Assessment
-
73-year-old woman with history of diabetes, amputation, peripheral arterial disease, hypertension, halfway resident, stage IV decubitus ulcer, came with lethargy and shortness of breath. Found to be hypotensive and septic shock. Transferred
to the critical care unit overnight.
Septic shock: Likely urinary source
Abnormal urinalysis consistent with UTI
Cannot rule out infection of sacral decubitus ulcer which was present on admission. Foul-smelling.
Hypokalemia
Anemia
Chronic anemia
Conditions present prior admission:
Chronic urinary retention-Kitchen in place
Chronic anemia
Coronary artery disease
Peripheral arterial disease
Essential hypertension
Type 2 diabetes
Obesity
Spinal stenosis
Stage IV sacral decubitus ulcers present on admission
Right uphxr-[id number] amputation
Right femoral-popliteal bypass
Right carotic endarterectomy
History of laminectomy
Spinal stimulator implant
Prior bladder surgery
Assessment and plan:
Patient overall clinically improved since admission to
Significant improvement on hemodynamics.
-
Multiple sources for septic shock including UTI and stage IV necrotic decubitus ulcer in the sacrum.
Patient decline debridement-appreciate surgical consultation
Continue with local care
Infectious disease consulted: Case discussed. Antibiotics adjusted.
-
After discussion with family and patient they have decided to move towards palliative care/hospice.
She has declined any further interventions including transfusion.
-
Discontinue IV fluids
Wean off vasopressors
-
Follow H&H. Hemoglobin appears to be stable compared to prior.
Hemoglobin under 7.
Transfusion recommended.
Patient declined
-
DVT prophylaxis with Lovenox
-
I agree with hospice/comfort measures.
No additional recommendation from the critical care perspective.
Transfer to [facility]
Sign off
Subjective Dataa
Subjective Data
Date of Service:
Date of Service: January 06, 2024
Chief Complaint: Technical Asst Follow Up (Septic shock)
Subjective:
Feels better this morning.
Eating breakfast independently
Complaining of buttock pain
Review of Systems
Cardiopulmonary: Dyspnea (None at rest) and Cough (n)
GI: Abdominal Pain (n)
Objective Data
Data Reviewed
Vital Signs / I&O / Oxygen:
Vital Signs
Temp Pulse Resp BP Pulse Ox
99.2 F 79 22 117/49 95
01/06/24 11:57 01/06/24 05:15 01/06/24 05:15 01/06/24 05:00 01/06/24 05:15
Intake and Output
01/05/24 01/06/24 01/07/24
06:59 06:59 06:59
Intake Total 3661.3 / 3661.3
Output Total 800 / 800 1275 / 1275
Balance -800 / -800 2386.3 / 2386.3
SaO2 95
Nasal Cannula flow liters per 2
minute
Physical Exam
General: Respiratory Distress (n) and Comfortable
HEENT: Normocephalic
Cardiovascular: S1-S2
Respiratory: Clear and Non-Labored Respirations
GI: Soft and Non Distended
Neurology: Awake, Alert and Oriented
Skin: Warm and Other (Stage IV sacral decubitus ulcer. Foul-smelling. Significant necrotic tissue.)
Labs/Micro/Reports
Lab Data
01/06/24 04:41
01/06/24 04:41
Laboratory Results
01/05/24
14:02
PT 20.3 H
INR 1.72
APTT 26.7
Microbiology
01/05/24 01:55 Urine Urine Culture - Final
01/05/24 01:54 Blood/Venous Blood Culture - Preliminary
Clostridium clostridioforme
01/05/24 01:54 Blood/Venous Gram Stain - Preliminary
01/05/24 01:54 Blood/Venous Blood Culture - Preliminary
Positive culture in progress
01/05/24 01:54 Blood/Venous Gram Stain - Preliminary
01/05/24 05:55 Urine Legionella Urinary Antigen - Final
Negative for Legionella pneumophila Serogroup 1 antigen.
A negative result does not rule out the possiblity of
Legionella infection due to other serogroups or species of
Legionella. Clinical correlation is recommended.
--- NOTE | 2024-01-06 14:05 | W.PN.UPDATE ---
Update Note
Progress Note Update
I have discussed with the patient personally and she would not want any interventions prednisone she would like antibiotics discontinued.
Would not want any intervention.
Discussed with case management. He had made a referral to [facility] to discharge on hospice care, they can take her on Tuesday.
naval gunfire liaison officer will also discuss with family when able.
I will update family members.
For now I will transfer to comfort measures only while in the hospital.
Discontinue all nonessential medications.
Focus on comfort
Discharge planning when able.
--- NOTE | 2024-01-06 14:38 | HOSPNOTE ---
Called and spoke with the patients Raphael today. He states he does not want the patient to return to [facility] and is looking at [facility]. He is not able to make it to the Hospital today but is requesting an in person Hospice intro
tomorrow after 1230 in the patients room as her wants her included in the discussion.
--- NOTE | 2024-01-06 14:44 | PTCARENOTE ---
pts son and at bedside , asking multiple questions about goals of care and pts condition , Dr Drummond here and spoke to family re infectious process and outcomes, pt and family are in agreement that she is suffering and will not improve ,
they are requesting she have a consult to hospice , Dr Dotson notified of pt and family wishes and goals of care .
--- NOTE | 2024-01-06 14:49 | PTCARENOTE ---
Dr Garrison spoke to pts and patient regarding their wishes and goals of care , pt is now written for med/surg status and going to transfer to an outpatient hospice , wrapper caser speaking to family re options with hospice , pt is comfortable
and emotional support given to patient and family
[2024-01-06] MEDS: STERILE WATER FOR INJECTION IV (15:24)
[2024-01-06] MEDS: MORPHINE SULFATE 1 MG IV ×2 (16:53→21:24)
[2024-01-06 17:13] LABS: Glucose - Point of Care 138 mg/dl (70-99)
[2024-01-06] MEDS: DAKIN'S SOLUTION 0.125% 1/4 STRENGTH TOPICAL (19:40)
--- NOTE | 2024-01-06 20:03 | PTCARENOTE ---
Cannot verify vitals prior to 1900.
--- NOTE | 2024-01-06 20:04 | PTCARENOTE ---
Received patient AAOx3, following commands, denying pain. Normal sinus, 70s. BP stable, 100s/40s. Right AKA, left leg +2 edema, DP present on doppler. On room air, saturating 96%. Inspiratory wheeze bilaterally. No BM yet this shift. Chronic marie
draining fatou urine. Unstageable on sacrum, patient refused wound care at 1999. PIVs WNL, patent.
--- NOTE | 2024-01-06 20:40 | TRANSFER ---
Transferred to [address] [place] [address] to [facility] without any issues.
[2024-01-07] MEDS: MORPHINE SULFATE 1 MG IV ×6 (03:08→22:23)
[2024-01-07 03:30] VITALS: BP 126/51
[2024-01-07 05:48] LABS: Mean Corp Hgb Conc. 32.4 g/dL (33.0-37.0); Mean Corpuscular Hgb 23.8 pg (27.0-31.0); Mean Corpuscular Volume 73.7 fL (81.0-99.0); Mean Platelet Volume 9.2 fL (7.4-10.4); Platelet Count 372 10^3/uL (130-400); Red Blood Cell Count 2.81 10^6/uL (4.20-5.40); Red Cell Dist. Width 17.7 % (11.5-14.5); White Blood Cell Count 15.6 10^3/uL (4.8-10.8)
[2024-01-07 05:59] LABS: Hematocrit 20.7 % (37.0-47.0); Hemoglobin 6.7 g/dL (12.0-16.0)
[2024-01-07 07:35] VITALS: BP 138/51
[2024-01-07] MEDS: DAKIN'S SOLUTION 0.125% 1/4 STRENGTH 1 ML TOPICAL (07:59)
--- NOTE | 2024-01-07 10:41 | W.PN.HOSP.TC ---
Today's Communication/Plan
-
Continue with comfort measures
Assessment / Plan
Assessment / Plan
Ms. Aydee Baeza is a 73 yo woman, [facility] resident, with hx PAD with right AKA, urinary retention with chronic marie catheter, essential HTN, DM2, obesity, spinal stenosis, recent hospitalization for enterococcus catheter
associated UTI (treated with Vancomycin then Augmentin), sacral ulcer, left intratrochanteric hip fracture treated non-operatively presents to the ER with outpatient labs showing low Hg and concern for UTI.
CT: no PE at lobar level. Patchy opacity within right lower lung could reflect infection versus nodule. Patulous esophagus with air-fluid level predisposing patient to aspiration
Septic Shock with bacteremia and suspected urinary source
Chronic Marie catheter in situ.
Clostridium clostridioforme bacteremia
Large sacral decubitus ulcer concerning for soft tissue infection
Resolved shock. Off of vasopressors.
TME 2/2 above
Resolved.
Severe anemia-microcytic. Patient with chronic anemia. No obvious external bleeding. s.
Diabetes mellitus type 2 with hyperglycemia
Chronic hyponatremia-
Large Black necrotic stage IV sacral decubitus ulcer to bone secondary pressure. Has follow-up odor and surrounding erythema. General surgery consulted for evaluation of need for debridement. Continue with wound care.
DVT PPx lovenox subQ
DNR
Boat Cleaning Supervisor had a long discussion with the family and the decisions were made for comfort measures.
This morning she is comfortable. Continue with comfort measures. She is off of all antibiotics and acute care medicines.
Will consult hospice.
Anticipated Discharge: > 48 hours
Subjective/Interval History
-
Date of Service: January 07, 2024
Patient now made comfort measures
Today she does not have much appetite but feels comfortable. Denies any pain.
Objective Data
-
Labs:
Laboratory Results
01/07/24
05:24
WBC 15.6 H
Hgb 6.7 L*
Hct 20.7 L*
Plt Count 372
Vital Signs:
Vital Signs
Temp Pulse Resp BP Pulse Ox
98.2 F 77 20 138/51 97
01/07/24 07:35 01/07/24 07:35 01/07/24 07:35 01/07/24 07:35 01/07/24 07:35
I&O
01/06/24 01/07/24 01/08/24
06:59 06:59 06:59
Intake Total 3661.3 / 3722.0 625.7 / 625.7
Output Total 1275 / 1275 475 / 475
Balance 2386.3 / 2447.0 150.7 / 150.7
Review of Systems
-
Respiratory: Denies Trouble Breathing
Cardiac: Denies Chest Pain
Abdomen/GI: Denies Nausea
Neuro: Denies Dizzy
Physical Exam
-
General: No Apparent Distress and Comfortable
Respiratory: Non Labored Respirations; Negative Accessory Resp Muscle Use
Neuro: AO x 3
--- NOTE | 2024-01-07 13:54 | HOSPNOTE ---
This hospice nurse meet with patient, son and spouse Raphael Baeza, discussed hospice vs palliative care philosophy. Reports leaning toward hospice care with possible sign on to hospice this Tuesday.
[2024-01-07] MEDS: ZOFRAN 4 MG IV (14:11)
--- NOTE | 2024-01-07 16:18 | CHAP ---
Visited Aydee at 9:30. She said she's doing okay and has good family support. Emotional and spiritual support provided; prayer brought peace and a smile. Assured Aydee we are here for her.
[2024-01-07 19:27] VITALS: BP 124/50
[2024-01-07] MEDS: DAKIN'S SOLUTION 0.125% 1/4 STRENGTH TOPICAL (21:40)
[2024-01-08] MEDS: MORPHINE SULFATE 1 MG IV ×5 (04:28→17:01)
[2024-01-08 07:30] VITALS: BP 119/51
[2024-01-08] MEDS: DAKIN'S SOLUTION 0.125% 1/4 STRENGTH TOPICAL ×2 (08:58→20:52)
[2024-01-08] MEDS: ROXICODONE 5 MG PO (10:31)
--- NOTE | 2024-01-08 13:22 | W.PN.HOSP.TC ---
Today's Communication/Plan
-
cw comfort measures
Assessment / Plan
Assessment / Plan
Ms. Aydee Baeza is a 73 yo woman, [facility] resident, with hx PAD with right AKA, urinary retention with chronic marie catheter, essential HTN, DM2, obesity, spinal stenosis, recent hospitalization for enterococcus catheter
associated UTI (treated with Vancomycin then Augmentin), sacral ulcer, left intratrochanteric hip fracture treated non-operatively presents to the ER with outpatient labs showing low Hg and concern for UTI.
CT: no PE at lobar level. Patchy opacity within right lower lung could reflect infection versus nodule. Patulous esophagus with air-fluid level predisposing patient to aspiration
Septic Shock with bacteremia and suspected urinary source
Chronic Marie catheter in situ.
Clostridium clostridioforme bacteremia
Large sacral decubitus ulcer concerning for soft tissue infection
Resolved shock. Off of vasopressors.
TME 2/2 above
Resolved.
Severe anemia-microcytic. Patient with chronic anemia. No obvious external bleeding. s.
Diabetes mellitus type 2 with hyperglycemia
Chronic hyponatremia-
Large Black necrotic stage IV sacral decubitus ulcer to bone secondary pressure. Has follow-up odor and surrounding erythema. General surgery consulted for evaluation of need for debridement. Continue with wound care.
DVT PPx lovenox subQ
DNR
Project Manager Entertainment [employer] Media had a long discussion with the family and the decisions were made for comfort measures.
Discussed with this morning-comfort is the goal
Increase the frequency of IV morphine .continue with comfort measures. She is off of all antibiotics and acute care medicines.
Will consult hospice.
Anticipated Discharge: > 48 hours
Subjective/Interval History
-
Date of Service: January 08, 2024
On comfort measures
Patient alert. at bedside. Patient complains of left hip pain , requiring increasing amount of pain meds.
Objective Data
-
Vital Signs:
Vital Signs
Temp Pulse Resp BP Pulse Ox
98.2 F 76 20 119/51 94
01/08/24 07:30 01/08/24 07:30 01/08/24 07:30 01/08/24 07:30 01/08/24 07:30
I&O
01/07/24 01/08/24 01/09/24
06:59 06:59 06:59
Intake Total 625.7 / 625.7 100 / 100
Output Total 475 / 475 1775 / 1775
Balance 150.7 / 150.7 -1675 / -1675
Review of Systems
-
Constitutional: Denies Fever
Respiratory: Denies Trouble Breathing
Cardiac: Denies Chest Pain
Abdomen/GI: Denies Nausea
Physical Exam
-
General: No Apparent Distress and Comfortable
Respiratory: Non Labored Respirations; Negative Accessory Resp Muscle Use
Neuro: AO x 3
[2024-01-08] MEDS: ZOFRAN 4 MG IV (13:58)
[2024-01-08 21:34] VITALS: BP 128/57
[2024-01-09] MEDS: MORPHINE SULFATE 1 MG IV ×3 (00:53→11:11)
[2024-01-09] MEDS: ROXICODONE 5 MG PO (01:46)
[2024-01-09 08:10] VITALS: BP 129/53
--- NOTE | 2024-01-09 08:24 | PN.DE.MGMTRT ---
Insulin Management
- -
01/09/2024 Diabetes Management F/U:
Patient admitted from [facility] due to abnormal labs, Hgb low, UTI. PMH HTN, HLD, type 2 diabetes 20 years, s/p AKA, chronic marie, stage 4 sacral wound. Prior to admission chart indicates patient was receiving 8 units Lantus @ hs with
metformin 500 mg daily. A1C 6.4%, cr .7, eGFR > 60.
Patient was transitioned to comfort care only on 01/07. All insulin and accuchek orders were discontinued.
Diabetes management will sign off at this time.
Please reconsult if needed.
Diabetes History
- -
Type of Diabetes: 2 requiring insulin
Pre-Admission Diabetes Regimen
Lab Results
Hemoglobin A1c 6.4 % (4.0-5.6) H 01/06/24 04:41
Insulin Pump Settings
IP Diabetes Regimen
Meal type: Dinner
Amount consumed: 10%
Patient Education
--- NOTE | 2024-01-09 10:21 | W.PN.HOSP.TC ---
Today's Communication/Plan
-
d/c to hospice
Assessment / Plan
Assessment / Plan
Ms. Aydee Baeza is a 73 yo woman, [facility] home resident, with hx PAD with right AKA, urinary retention with chronic marie catheter, essential HTN, DM2, obesity, spinal stenosis, recent hospitalization for enterococcus catheter
associated UTI (treated with Vancomycin then Augmentin), sacral ulcer, left intratrochanteric hip fracture treated non-operatively presents to the ER with outpatient labs showing low Hg and concern for UTI.
spoke with Zara from hospice--plans are to admit to [facility]
Septic Shock with bacteremia and TME and suspected urinary source vs sacral decub--Chronic Marie catheter in situ--Clostridium clostridioforme bacteremia--Resolved shock. Off of vasopressors.
Severe anemia-microcytic. Patient with chronic anemia. No obvious external bleeding.
Diabetes mellitus type 2 with hyperglycemia
Chronic hyponatremia-
Large Black necrotic stage IV sacral decubitus ulcer to bone secondary pressure. Has follow-up odor and surrounding erythema. General surgery consulted for evaluation of need for debridement. Continue with wound care.
DVT PPx lovenox subQ
DNR
Penetration Tester had a long discussion with the family and the decisions were made for comfort measures.
Discussed with this morning-comfort is the goal
Increase the frequency of IV morphine .continue with comfort measures. She is off of all antibiotics and acute care medicines.
Will consult hospice.
Anticipated Discharge: Today
Subjective/Interval History
-
Date of Service: January 09, 2024
pt c/o leg pain
Objective Data
-
Vital Signs:
max temp for 24 hours
01/08/24
21:34
Temp 99.9 F
Vital Signs
Temp Pulse Resp BP Pulse Ox
98.5 F 78 24 129/53 93
01/09/24 08:10 01/09/24 08:10 01/09/24 08:10 01/09/24 08:10 01/09/24 08:10
I&O
01/08/24 01/09/24 01/10/24
06:59 06:59 06:59
Intake Total 100 / 100 720 / 720
Output Total 1775 / 1775 850 / 850
Balance -1675 / -1675 -130 / -130
Review of Systems
-
All other systems: Reviewed and negative
Physical Exam
-
General: Well Developed and No Apparent Distress
HEENT: Normocephalic and Atraumatic
Respiratory: Clear to Auscultation; Negative Wheezes or Rhonchi
Cardiac: Regular Rhythm and S1/S2; Negative Murmur
GI: Soft, Nontender, Nondistended and Normal Bowel Sounds
Genito-urinary: Marie
Musculoskeletal: Other (left leg 4+ pitting edema--right AKA)
Skin: Ulcers (reviewed pictures from wound care--large necrotic sacral decub ulcer)
Neuro: Awake
--- NOTE | 2024-01-09 10:42 | HOSPNOTE ---
Spoke at length with family and attending. Patient will stay here on hospice services and remain inpatient hospice. Floor RN aware and admissions was contacted. Updated Case management.
--- NOTE | 2024-01-09 11:04 | CM ---
Reviewed chart notes. Patient transitioning to [facility] hospice today. CM continues to be available to patient/family.
Plan: [facility] hospice.
[2024-01-09] MEDS: DAKIN'S SOLUTION 0.125% 1/4 STRENGTH TOPICAL (15:01)
--- NOTE | 2024-01-09 15:23 | W.DCSUMMARY ---
Discharge Summary
Discharge Data
Date of Admission: 01/05/24
Date of Discharge: 01/09/24
-
Pending Results: No
Hospital Course
Primary care physician : Cj Hernandez
Principal Discharge diagnosis : Septic shock with bacteremia and toxic metabolic encephalopathy, severe anemia, failure to thrive with hypoalbuminemia
Chronic Discharge diagnosis : type 2 diabetes mellitus with hyperglycemia, chronic hyponatremia, large black necrotic stage IV decubitus ulcer secondary to pressure injury present on admission
Hospital Course : Patient was a 73-year-old female custodial resident of [facility] with a history of right lower extremity AKA, chronic Kitchen catheter who presented with lethargy, cough for the past week and shortness of breath. Patient has
a chronic Kitchen catheter and had a recent hospitalization for Enterococcus catheter associated urinary tract infection. Patient stated that she had abdominal upset and did not want anything to eat. She was started on amoxicillin and ciprofloxacin
as an outpatient for urinary tract infection. Patient was admitted.
Problem #1: Septic shock with bacteremia and toxic metabolic encephalopathy. Patient was found to have Clostridium clostridial form a bacteremia with septic shock. She had been started on vasopressors and weaned off. Broad-spectrum antibiotics
were continued. She was seen in consultation by the bearingizer as well she was in the intensive care unit. Paper Machine Back Tender had discussions with patient's family and the patient regarding further plans of care which will be outlined below.
Problem #2: Severe anemia. Patient did not have any active bleeding noted. Hemoglobin was 6.72 days ago. Further lab studies have been stopped as the patient will be transitioning to comfort measures and eventual hospice.
Problem #3: Failure to thrive with hypoalbuminemia. Patient having poor oral intake.
Problem #4: All other medical issues. These include type 2 diabetes mellitus with hyperglycemia, chronic hyponatremia, large black necrotic stage IV decubitus ulcer secondary to pressure injury present on admission. Pictures of her large sacral
decubitus ulcer was reviewed. Antibiotics alone will not heal this. All other medical issues were stable.
After having discussions with the bearingizer, comfort measures were undertaken. Today January 09, 2024, hospice was consulted and met with the patient's family. They agree with hospice philosophy. Patient has been admitted to inpatient hospice and
morphine drip has been started as every hour morphine injections are not helping.
Patient is stable for discharge to inpatient hospice at this time. Please let this serve as the history and physical for the inpatient hospice admission.
Time for discharge and readmission 45 minutes.
Discharge Plan
-
Patient Disposition: Hospice - Inpatient DH
Discharge Orders:
Discharge Patient (As Directed); Ordered 01/09/24
Ordered By: Maria Esther Rosario
Discharge Date and Time
Discharge Date/Time: 01/09/24 11:10
Print Language: INDONESIAN
== END 2024-01-09 11:10 | DRG 871 ==
LOC: 2 NORTH 05:47
PROVIDERS: Internal Medicine; ADMITTING PHYSICIAN Student in an Organized Health Care Education/Training Program; ATTENDING PHYSICIAN Internal Medicine; EMERGENCY PHYSICIAN Emergency Medicine; FAMILY PHYSICIAN Internal Medicine; OTHER PHYSICIAN Internal Medicine Critical Care Medicine; OTHER PHYSICIAN Internal Medicine Infectious Disease; OTHER PHYSICIAN Surgery
DX: A41.9 Sepsis, unspecified organism (principal); G92.8 Other toxic encephalopathy; L89.154 Pressure ulcer of sacral region, stage 4; R65.21 Severe sepsis with septic shock; J96.01 Acute respiratory failure with hypoxia; N39.0 Urinary tract infection, site not specified; M86.9 Osteomyelitis, unspecified; E87.1 Hypo-osmolality and hyponatremia; F17.200 Nicotine dependence, unspecified, uncomplicated; E87.6 Hypokalemia; Z66 Do not resuscitate; Z51.5 Encounter for palliative care; E11.69 Type 2 diabetes mellitus with other specified complication; E11.65 Type 2 diabetes mellitus with hyperglycemia; D64.9 Anemia, unspecified; E88.09 Other disorders of plasma-protein metabolism, not elsewhere classified; R62.7 Adult failure to thrive; Z68.31 Body mass index [BMI] 31.0-31.9, adult
CPT/HCPCS: 71045; 71275; 80053; 81003; 81015; 82728; 82805; 82962; 83036; 83540; 83550; 83605; 83735; 84484; 85025; 85027; 85045; 85610; 85730; 86850; 86900; 86901; 87040; 87070; 87086; 87147; 87205; 87449; 87811; 92610; 93005; 96361; 96365; 96375; 99291; Q9967

== ENCOUNTER 2024-01-09 11:14 | Inpatient (IN) | payer OTHER, SELFPAY ==
--- NOTE | 2024-01-09 11:44 | HOSPNOTE ---
Chart reviewed, spoke with patient and family, consents for hospice obtained. Family in agreement.
Patient meets [facility] level of care criteria due to severe pain requiring Morphine continuous infusion. Complained of severe pain in legs described as nerve pain, received Morphine IV push prior to hospice nurse arrival without relief of pain. Informal
conference with nurse Valerio, contacted Dr. Rosario, orders pending.
[2024-01-09] MEDS: MORPHINE 100 IV (12:01)
[2024-01-09] MEDS: ATIVAN 0.5 MG IV (12:22)
--- NOTE | 2024-01-09 15:26 | PTCARENOTE ---
At beginning of shift Pt asked for PRN Morphine, it was administered with not much relief for LE pain. Son in shortly after beginning of shift asking for more PRN pain medication for Pt. Son and daughter in law at bedside stating they are interested
in discussing Hospice care with Hospice nurse. TT sent to Hospice nurse Zara Pringle and Dr. Rosario of family's wishes. Pt signed onto hospice this shift and began a Morphine drip step 2 at 12pm. Family at bedside. Hygiene and wound care
provided. Safety and comfort measures maintained. Call rouse within reach.
--- NOTE | 2024-01-09 15:30 | ADM.HSP ---
Admission - Hospice
History of Present Illness
Hospital Course : Patient was a 73-year-old female [facility] resident of [facility] with a history of right lower extremity AKA, chronic Kitchen catheter who presented with lethargy, cough for the past week and shortness of breath. Patient has
a chronic Kitchen catheter and had a recent hospitalization for Enterococcus catheter associated urinary tract infection. Patient stated that she had abdominal upset and did not want anything to eat. She was started on amoxicillin and ciprofloxacin
as an outpatient for urinary tract infection. Patient was admitted.
Problem #1: Septic shock with bacteremia and toxic metabolic encephalopathy. Patient was found to have Clostridium clostridial form a bacteremia with septic shock. She had been started on vasopressors and weaned off. Broad-spectrum antibiotics
were continued. She was seen in consultation by the heel trimmer as well she was in the intensive care unit. Car Retarder Operator had discussions with patient's family and the patient regarding further plans of care which will be outlined below.
Problem #2: Severe anemia. Patient did not have any active bleeding noted. Hemoglobin was 6.72 days ago. Further lab studies have been stopped as the patient will be transitioning to comfort measures and eventual hospice.
Problem #3: Failure to thrive with hypoalbuminemia. Patient having poor oral intake.
Problem #4: All other medical issues. These include type 2 diabetes mellitus with hyperglycemia, chronic hyponatremia, large black necrotic stage IV decubitus ulcer secondary to pressure injury present on admission. Pictures of her large sacral
decubitus ulcer was reviewed. Antibiotics alone will not heal this. All other medical issues were stable.
After having discussions with the heel trimmer, comfort measures were undertaken. Today January 09, 2024, hospice was consulted and met with the patient's family. They agree with hospice philosophy. Patient has been admitted to inpatient hospice and
morphine drip has been started as every hour morphine injections are not helping.
Reason for Hospice Admission
Intractable pain
Review of Systems
History Source: Patient
Musculoskeletal: Other (Complaining of significant back and leg pain)
Physical Exam
General: Well Developed, Well Nourished and Appears in Distress
Respiratory: Clear to Auscultation, Wheezes, Rales, Rhonchi and Crackles
Cardiology: Regular Rhythm, S1/S2 and Murmur
GI: Soft, Nontender, Nondistended and Normal Bowel Sounds
Genito-Urinary: Kitchen
Musculoskeletal: Other (Left lower extremity with 4+ pitting edema--- right AKA)
Skin: Other (Significantly large sacral decubitus ulcer with necrotic areas and black eschar)
Neuro: Nonfocal/Grossly Intact
Assessment/Medication Plan
Generic Name Dose Route Start Last Admin
Trade Name Freq PRN Reason Stop Dose Admin
Acetaminophen 650 mg 01/09/24 11:38
Acetaminophen 325 Mg Tablet PO 02/06/24 11:37
Q4HPRN PRN
mild pain, AVILA, or temp >100.4F
Acetaminophen 650 mg 01/09/24 11:38
Acetaminophen 650 Mg Rectal Suppository RECTAL 02/06/24 11:37
Q4HPRN PRN
mild pain, AVILA, or temp >100.4F
Bisacodyl 10 mg 01/09/24 11:38
Bisacodyl 10 Mg Rectal Suppository RECTAL 02/06/24 11:37
DAILYPRN PRN
if no BM for 3 days
Glycopyrrolate 0.2 mg 01/09/24 11:38
Glycopyrrolate 0.2 Mg/Ml Vial IV 02/06/24 11:37
Q4HPRN PRN
excessive secretions
Morphine Sulfate/Sodium Chloride 100 mg in 100 mls @ 0 mls/hr 01/09/24 11:45 01/09/24 12:01
Morphine IV 100 mls
PER PROTOCOL QING Administration
Protocol
Per Protocol
Lorazepam 0.5 mg 01/09/24 11:38 01/09/24 12:22
Lorazepam 2 Mg/Ml Vial IV 02/06/24 11:37 0.5 mg
Q2HPRN PRN Administration
anxiety
Protocol
Morphine Sulfate 0 mg 01/09/24 11:38
Morphine 2 Mg/Ml Syringe IV 01/23/24 11:37
[id number] PRN
moderate-severe pain / dyspnea
Protocol
Ondansetron HCl 4 mg 01/09/24 11:38
Ondansetron 4 Mg/2 Ml Vial IV 02/06/24 11:37
Q6HPRN PRN
nausea/vomiting
Sodium Chloride 0 flush 01/09/24 12:00
Sodium Chloride 0.9% (Flush) Syringe IV 02/06/24 11:59
PER PROTOCOL QING
Patient is a 73-year-old female
General inpatient hospice--admit--morphine drip started for comfort--continue Kitchen catheter for comfort and end-of-life issues
CODE STATUS--DO NOT RESUSCITATE
[2024-01-09 21:29] VITALS: BP 113/50
[2024-01-10 07:35] VITALS: BP 116/49
[2024-01-10] MEDS: ROBINUL 0.200000000000000011 MG IV ×3 (09:12→21:11)
--- NOTE | 2024-01-10 09:26 | CM ---
Reviewed the chart notes. The patient's status is GIP Hospice and is now on a Morphine gtt.
--- NOTE | 2024-01-10 10:13 | W.PN.HOSP.TC ---
Today's Communication/Plan
-
renew morphine drip
cont comfort
Assessment / Plan
Assessment / Plan
pt is a 73 year old female
inpatient hospice -- cont morphine drip
other pertinent medical issues:
septic shock with bacteremia
severe anemia
failure to thrive/hypoalbuminemia
large necrotic sacral decub ulcer (POA)
Anticipated Discharge: > 48 hours
Subjective/Interval History
-
Date of Service: January 10, 2024
pt unresponsive
Objective Data
-
Vital Signs:
max temp for 24 hours
01/10/24
07:35
Temp 99.4 F
Vital Signs
Temp Pulse Resp BP Pulse Ox
99.4 F 78 16 116/49 87
01/10/24 07:35 01/10/24 07:35 01/10/24 07:35 01/10/24 07:35 01/10/24 08:00
I&O
01/09/24 01/10/24 01/11/24
06:59 06:59 06:59
Intake Total 120 / 120
Output Total 750 / 750
Balance -630 / -630
Review of Systems
-
Unable to obtain full review of systems at this time due to: Patient Non-verbal
Physical Exam
-
General: Appears Chronically Ill
HEENT: Normocephalic and Atraumatic
Respiratory: Other (gurgles)
Cardiac: Regular Rhythm, S1/S2 and Murmur
GI: Soft, Nontender, Nondistended and Normal Bowel Sounds
Genito-urinary: Kitchen
Musculoskeletal: Other (right AKA)
Psych: Calm
--- NOTE | 2024-01-10 14:51 | HOSPNOTE ---
Patient was seen today and is unresponsive at this time, morphine drip is infusing step 2. Patient was turned and repositioned. Encouraged to medicate prior to any repositioning since the patient has a stage 4 pressure ulcer on buttocks. No family
was present during visit. Patient remains inpatient appropriate for pain management.
[2024-01-10 19:25] VITALS: BP 113/51
[2024-01-11] MEDS: MORPHINE 100 IV (04:46)
--- NOTE | 2024-01-11 07:27 | W.PN.DEATH ---
Pronouncement of
-
Called to see patient to pronounce.
No spontaneous heart tones or respirations noted.
Patient not responsive to verbal stimuli.
Patient is pronounced .
Time of : 07:20
Date of : 01/11/24
Cause of : Septic shock with bacteremia, large necrotic sacral decubitus ulcer, failure to thrive with hypoalbuminemia, severe anemia
Family Notified: Yes
--- NOTE | 2024-01-11 07:40 | W.DCSUMMARY ---
Discharge Summary
Discharge Data
Date of Admission: 01/09/24
Date of Discharge: 01/11/24
-
Pending Results: No
Hospital Course
Primary care physician : Cj Hernandez
Principal Discharge diagnosis : Septic shock with bacteremia
Chronic Discharge diagnosis : Large sacral decubitus ulcer, type 2 diabetes mellitus, chronic hyponatremia uremia, severe anemia, failure to thrive with hypoalbuminemia
Hospital Course : Patient is a 73-year-old female senior care resident who presented with septic shock and bacteremia with toxic metabolic encephalopathy. Patient had Clostridium clostridial bacteremia. She was initially admitted to the intensive
care unit with vasopressors. After being seen by the spinner box in consultation as well as multiple discussions the patient and family had decided on hospice. Patient was evaluated by the hospice team and met inpatient criteria for inpatient
hospice. Patient was started on a morphine drip for comfort.
Patient at 7:20 AM on January 11, 2024. Cause of is listed as septic shock with bacteremia due to large sacral decubitus ulcer. Family notified.
Discharge Plan
-
Referrals:
UNKNOWN,NO INTERVIEW [Family Provider] -
Prescriptions:
No Action
aspirin [Kartik Low Dose Aspirin] 81 MG tablet,delayed release (DR/EC)
81 mg PO DAILY
Hold Instructions: Resume on 12/13/23. Discuss with your outpatient physicians about when it is safe to resume this medication.
gabapentin 300 mg capsule
300 mg PO TID
therapeutic multivitamin Tablet
1 tab PO DAILY
alprazolam 0.25 mg Tablet
0.25 mg PO Q8HPRN PRN (Reason: anxiety)
ascorbic acid (vitamin C) [Vitamin C] 500 mg Tablet
500 mg PO DAILY
ferrous sulfate 325 mg (65 mg iron) Tablet
325 mg PO DAILY
losartan 25 mg Tablet
12.5 mg PO DAILY
Rx Instructions:
HOLD
bisacodyl [Dulcolax (bisacodyl)] 5 mg Tablet,Delayed Release (Dr/Ec)
10 mg PO DAILYPRN PRN (Reason: constipation)
Visbiome 112.5 billion cell Capsule
1 cap PO DAILY
Insulin Glargine In Device
8 units SC HS
miconazole nitrate [Miconazorb AF] 2 % Powder
1 applic topical BID Qty: 85 0RF
Santyl 250 unit/gram Ointment
1 applic topical DAILY Qty: 30 0RF
metformin 500 mg Tablet
500 mg PO DAILY
amoxicillin 500 mg Capsule
500 mg PO Q8H 6 Days Qty: 17 0RF
Rx Instructions:
Take through December 06, 2023
polyethylene glycol 3350 [HealthyLax] 17 gram Powder In Packet
17 g PO BID Qty: 14 0RF
doxycycline hyclate 100 mg Capsule
100 mg PO Q12 Qty: 19 0RF
Rx Instructions:
Take through December 10, 2023
sennosides [senna] 8.6 mg Tablet
17.2 mg PO DAILY@1200
acetaminophen [Tylenol] 325 mg Tablet
650 mg PO Q4HPRN PRN (Reason: mild pain/fever)
atorvastatin 10 mg Tablet
10 mg PO HS
bisacodyl 10 mg Suppository
10 mg DE QPM
pantoprazole [Protonix] 40 mg Tablet,Delayed Release (Dr/Ec)
40 mg PO DAILY
docusate sodium [Colace] 100 mg Capsule
100 mg PO TID
alum-mag hydroxide-simeth [Mag-Al Plus] 200-200-20 mg/5 mL Suspension
15 ml PO Q4HPRN PRN (Reason: indigestion)
Discharge Date and Time
Print Language: COOK ISLANDER
--- NOTE | 2024-01-11 08:48 | CM ---
Addendum entered by Liz Navas RN 01/11/24 09:04:
CM spoke with the patient's spouse and son at the bedside. Per family, no other family members will be coming to see the patient. They have contacted to home Alex Parikh. clerk analyst and cemetery counselor informed.
Original Note:
Reviewed the chart notes. Patient has .
== END 2024-01-11 10:05 | disposition expired | DRG 871 ==
LOC: 2 NORTH 11:14
PROVIDERS: ADMITTING PHYSICIAN Internal Medicine
DX: A41.9 Sepsis, unspecified organism (principal); G92.8 Other toxic encephalopathy; L89.154 Pressure ulcer of sacral region, stage 4; R65.21 Severe sepsis with septic shock; E87.1 Hypo-osmolality and hyponatremia; D64.9 Anemia, unspecified; E88.09 Other disorders of plasma-protein metabolism, not elsewhere classified; R62.7 Adult failure to thrive; E11.65 Type 2 diabetes mellitus with hyperglycemia; N19 Unspecified kidney failure